=== PATIENT | male | born 1930 | race Caucasian/White ===

== ENCOUNTER 2017-11-25 18:55 | Inpatient (IN) ==
[2017-11-25] MEDS ORDERED: Vancomycin Inj 1 GM/200 ML PIGGYBACK IV.SIG ONE (20:06)
[2017-11-25] MEDS ORDERED: Sodium Chlor 0.9% Inj 500 ML IV.SIG ONE (20:06)
[2017-11-25] MEDS ORDERED: Clindamycin 600 mg/NS Premix 600 MG/50 ML PIGGYBACK IV.SIG ONE (20:06)
--- NOTE | 2017-11-25 20:11 | ED ---
HPI General Chief Complaint: Extremity Injury, Upper Stated Complaint: broken finger/right hand Time Seen by Provider: 11/25/17 19:50 Source: patient Mode of arrival: other Limitations: other (Dementia) History of Present Illness HPI narrative: The patient is a 87-year-old male who presents to the emergency department from a residential for evaluation of a swollen left index finger. According to the paperwork the patient was noted to have a swollen left index finger 12 days ago. The patient was on Augmentin 875 mill grams twice a day for 10 days and acyclovir 400 mg 3 times a day for 10 days with some improvement but the area was still red and swollen. He then had a portable x-ray performed which revealed possible osteomyelitis. Therefore, the sent the patient to the emergency department for admission for failure of outpatient treatment and possible hand surgery consultation for osteomyelitis. The patient has a history of dementia with behavioral disturbance and is a poor historian. The patient states he injured the finger yesterday while golfing. The patient denies any fever, chills, or sweats. MD complaint: injury to: finger Onset (ago): week(s) Other Extremity Injury: Left: fingers Related Data Home Medications Medication Instructions Recorded Confirmed acyclovir 400 mg PO TID 11/25/17 11/25/17 amoxicillin-pot clavulanate 1 tab PO BID 11/25/17 11/25/17 [Augmentin] aspirin 81 mg PO DAILY 11/25/17 11/25/17 bumetanide 4 mg PO DAILY 11/25/17 11/25/17 donepezil 10 mg PO DAILY 11/25/17 11/25/17 folic acid 1 mg PO DAILY 11/25/17 11/25/17 haloperidol 1 mg PO DAILY 11/25/17 11/25/17 hydrocodone-acetaminophen [[place]] 1 tab PO BID 11/25/17 11/25/17 hydrocodone-acetaminophen [[place]] 1 tab PO Q6H PRN 11/25/17 11/25/17 metoprolol tartrate 25 mg PO BID 11/25/17 11/25/17 rivaroxaban [Xarelto] 20 mg PO DAILY 11/25/17 11/25/17 Allergies Allergy/AdvReac Type Severity Reaction Status Date / Time No Known Allergies Allergy Verified 11/25/17 19:35 Review of Systems ROS Unobtainable ROS Unobtainable: unobtainable due to mental condition ROS: all other systems reviewed are negative [facility] Medical History Medical History Atrial flutter (Acute) Dementia (Acute) Pacemaker (Acute) Social History Social History Substance History: No History of Abuse Smoking Status: Former smoker How Often Do You Have a Drink Containing Alcohol: 2 to 4 times a month Recent Travel in [facility] within the Last 8 Weeks: No Recent Out of Country Travel within the Last 8 Weeks: No Immunization History Tetanus Immunization: Unsure Hx Influenza Vaccine This Season: No Exam Narrative Exam Narrative: GENERAL: Awake, alert, pleasant 87-year-old male who appears his stated age for distress. SKIN: Focused skin assessment warm/dry. HEAD: Atraumatic. Normocephalic. EYES: No injection or drainage. ENT: No nasal bleeding or discharge. Mucous membranes pink and moist. NECK: Trachea midline. No JVD. CARDIOVASCULAR: Regular rate and rhythm. No murmur appreciated. Heart rate in the 70s. RESPIRATORY: No accessory muscle use. Clear to auscultation. Breath sounds equal bilaterally. GASTROINTESTINAL: Abdomen soft, non-tender, nondistended. MUSCULOSKELETAL: Second digit left hand does reveal swelling from the middle phalanx distally with swelling and fluctuance noted over the extensor surface of the distal phalanx just proximal to the nailbed. Tenderness upon palpation, limited range of motion secondary to pain. No drainage noted. Positive left radial pulse. Mild swelling of the right lower extremity compared to left with increased hemosiderin deposition noted. NEUROLOGICAL: Awake and alert. No obvious cranial nerve deficits. Motor grossly within normal limits. Normal speech. Patient is oriented to hospital and name but not month or year. PSYCHIATRIC: Appropriate mood and affect; insight and judgment normal. Course Consultations Consultation #1: The on-call medical service was paged for admission. Time: 21:33 Initial Documented Vital Signs Temperature 97.6 F 11/25/17 19:30 Pulse Rate 70 11/25/17 19:30 Respiratory Rate 18 11/25/17 19:30 Blood Pressure 111/60 11/25/17 19:30 Pulse Oximetry 97 11/25/17 19:30 Last Documented Vital Signs Temperature 97.6 F 11/25/17 19:30 Pulse Rate 73 11/25/17 20:08 Respiratory Rate 18 11/25/17 20:08 Blood Pressure 138/63 11/25/17 20:08 Pulse Oximetry 100 11/25/17 20:08 Medical Decision Making MDM Narrative Medical decision making narrative: I reviewed the paperwork from the residential including the x-ray report, it appears the patient may osteomyelitis versus open fracture with secondary infection. The patient is failed outpatient antibiotics including Augmentin and acyclovir. Lactic acid, blood cultures were sent to lab and x-ray was obtained to the second digit of the left hand. The patient was then administered vancomycin and clindamycin. X- ray reveals changes at the distal interphalangeal joint, possibly osteomyelitis. The patient is ready failed outpatient antibiotics. Sed rate, CRP, white count were unremarkable. Blood cultures are pending. Patient will need evaluation by hand surgery for possible definitive management. Therefore, the on-call medical service was paged for admission. Medical Screen Exam Complete: Yes Emergency Medical Condition: Yes Differential Diagnosis Differential Diagnosis: Differential diagnosis includes open fracture, osteomyelitis, paronychia, felon, failed outpatient therapy, sepsis. Lab Data Lab results reviewed: Yes I reviewed the patient's lab results. Lab results narrative: Sed rate minimally elevated at 23. CRP unremarkable. Lactic acid normal. White count normal at 9.2. Result diagrams: 11/25/17 20:14 11/25/17 20:14 Lab Results 11/25/17 11/25/17 11/25/17 Range/Units 20:14 20:14 20:14 WBC 9.2 (4.0-11.0) th/mm3 RBC 4.30 L (4.50-5.90) mil/mm3 Hgb 12.8 L (13.0-17.0) gm/dL Hct 39.1 (39.0-51.0) % MCV 91.0 (80.0-100.0) fL MCH 29.8 (27.0-34.0) pg MCHC 32.7 (32.0-36.0) % RDW 15.4 (11.6-17.2) % Plt Count 265 (150-450) th/mm3 MPV 8.5 (7.0-11.0) fL Neut % (Auto) 55.4 (16.0-70.0) % Lymph % (Auto) 26.0 (9.0-44.0) % [place] % (Auto) 10.3 H (0.0-8.0) % Eos % (Auto) 6.9 H (0.0-4.0) % Baso % (Auto) 1.4 (0.0-2.0) % Neut # (Auto) 5.1 (1.8-7.7) th/mm3 Lymph # (Auto) 2.4 (1.0-4.8) th/mm3 [place] # (Auto) 0.9 (0.0-0.9) th/mm3 Eos # (Auto) 0.6 H (0.0-0.4) th/mm3 Baso # (Auto) 0.1 (0.0-0.2) th/mm3 WBC Differential . Differential Comment Auto diff final ESR (0-20) mm/hr Sodium 141 (136-145) meq/L Potassium 3.9 (3.5-5.1) meq/L Chloride 103 (98-107) meq/L Carbon Dioxide 31.8 (21.0-32.0) meq/L Anion Gap 6 (5-15) meq/L BUN 21 H (7-18) mg/dL Creatinine 1.18 (0.60-1.30) mg/dL Estimated GFR 59 L (>89) mL/min Random Glucose 92 (74-106) mg/dL Lactic Acid 1.4 (0.4-2.0) mmol/L Calcium 8.6 (8.5-10.1) mg/dL Total Bilirubin 0.3 (0.2-1.0) mg/dL AST 13 L (15-37) U/L ALT 18 (12-78) U/L Alkaline Phosphatase 69 (45-117) U/L C-Reactive Protein Less than 0.29 (0.00-0.30) mg/dL Total Protein 7.2 (6.4-8.2) g/dL Albumin 3.3 L (3.4-5.0) g/dL 11/25/17 Range/Units 20:14 WBC (4.0-11.0) th/mm3 RBC (4.50-5.90) mil/mm3 Hgb (13.0-17.0) gm/dL Hct (39.0-51.0) % MCV (80.0-100.0) fL MCH (27.0-34.0) pg MCHC (32.0-36.0) % RDW (11.6-17.2) % Plt Count (150-450) th/mm3 MPV (7.0-11.0) fL Neut % (Auto) (16.0-70.0) % Lymph % (Auto) (9.0-44.0) % [place] % (Auto) (0.0-8.0) % Eos % (Auto) (0.0-4.0) % Baso % (Auto) (0.0-2.0) % Neut # (Auto) (1.8-7.7) th/mm3 Lymph # (Auto) (1.0-4.8) th/mm3 [place] # (Auto) (0.0-0.9) th/mm3 Eos # (Auto) (0.0-0.4) th/mm3 Baso # (Auto) (0.0-0.2) th/mm3 WBC Differential Differential Comment ESR 23 H (0-20) mm/hr Sodium (136-145) meq/L Potassium (3.5-5.1) meq/L Chloride (98-107) meq/L Carbon Dioxide (21.0-32.0) meq/L Anion Gap (5-15) meq/L BUN (7-18) mg/dL Creatinine (0.60-1.30) mg/dL Estimated GFR (>89) mL/min Random Glucose (74-106) mg/dL Lactic Acid (0.4-2.0) mmol/L Calcium (8.5-10.1) mg/dL Total Bilirubin (0.2-1.0) mg/dL AST (15-37) U/L ALT (12-78) U/L Alkaline Phosphatase (45-117) U/L C-Reactive Protein (0.00-0.30) mg/dL Total Protein (6.4-8.2) g/dL Albumin (3.4-5.0) g/dL Imaging Data Attestation: I personally reviewed and interpreted this imaging study as follows : My impression: Bony changes at the distal interphalangeal joint, possible fracture versus osteomyelitis Radiologist's impression: Finger X-Ray 11/25/17 20:06 CONCLUSION: Findings consistent with osteomyelitis with bony destruction DIP joint second digit Discharge Plan Discharge Disposition Patient Disposition: 30 Still Patient Discharge Condition Condition: Stable Discharge Details Diagnosis: Osteomyelitis Physicians Team ED Provider: Terrance Salinas Primary Care Provider: UNKNOWN, Rxs /Orders / Referrals /Forms Prescriptions: No Action bumetanide 2 mg Tablet 4 mg PO DAILY RF: 0 hydrocodone-acetaminophen [Terrell] 5-325 mg Tablet 1 tab PO Q6H PRN (Reason: Pain) RF: 0 hydrocodone-acetaminophen [[place]] 5-325 mg Tablet 1 tab PO BID RF: 0 donepezil 10 mg Tablet 10 mg PO DAILY RF: 0 haloperidol 1 mg Tablet 1 mg PO DAILY RF: 0 acyclovir 400 mg Tablet 400 mg PO TID RF: 0 aspirin 81 mg Tablet,Chewable 81 mg PO DAILY RF: 0 folic acid 1 mg Tablet 1 mg PO DAILY RF: 0 amoxicillin-pot clavulanate [Augmentin] 875-125 mg Tablet 1 tab PO BID RF: 0 metoprolol tartrate 25 mg Tablet 25 mg PO BID RF: 0 rivaroxaban [Xarelto] 20 mg Tablet 20 mg PO DAILY RF: 0 Discharge Interventions Interventions: Vital Signs Last Done: 11/25/17 21:32 Status ED Status: Pending Admission
--- NOTE | 2017-11-25 20:29 | XR ---
EXAM DATE: 11/25/2017 8:24 PM EDT AGE/SEX: 87 years / Male INDICATIONS: Left hand, distal 2nd digit pain and swelling from infection. CLINICAL DATA: This is the patient's initial encounter. Patient reports that signs and symptoms have been present for 3 weeks and indicates a pain score of 10/10. MEDICAL/SURGICAL HISTORY: None. None. COMPARISON: No prior exams available for comparison. 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 Degenerative changes in the third, fourth and fifth phalanges Degenerative changes in the carpus. CONCLUSION: Findings consistent with osteomyelitis with bony destruction DIP joint second digit Electronically signed by: Kian Mcarthur MD 11/25/2017 8:28 PM EDT
[2017-11-25 20:40] LABS: Baso # (Auto) 0.1 th/mm3 (0.0-0.2); Baso % (Auto) 1.4 % (0.0-2.0); Eos # (Auto) 0.6 th/mm3 (0.0-0.4); Eos % (Auto) 6.9 % (0.0-4.0); Hematocrit 39.1 % (39.0-51.0); Hemoglobin 12.8 gm/dL (13.0-17.0); Lymph # (Auto) 2.4 th/mm3 (1.0-4.8); Mean Corpuscular HGB Conc 32.7 % (32.0-36.0); Mean Corpuscular Hemoglobin 29.8 pg (27.0-34.0); Mean Platelet Volume 8.5 fL (7.0-11.0); Mono # (Auto) 0.9 th/mm3 (0.0-0.9); Mono % (Auto) 10.3 % (0.0-8.0); Neut # (Auto) 5.1 th/mm3 (1.8-7.7); Neut % (Auto) 55.4 % (16.0-70.0); Platelet Count 265 th/mm3 (150-450); Red Cell Distribution Width 15.4 % (11.6-17.2); White Blood Count 9.2 th/mm3 (4.0-11.0)
[2017-11-25 21:10] LABS: Alanine Aminotransferase 18 U/L (12-78); Albumin 3.3 g/dL (3.4-5.0); Anion Gap 6 meq/L (5-15); Aspartate Aminotransferase 13 U/L (15-37); Blood Urea Nitrogen 21 mg/dL (7-18); Calcium 8.6 mg/dL (8.5-10.1); Carbon Dioxide 31.8 meq/L (21.0-32.0); Chloride 103 meq/L (98-107); Glomerular Filtration Rate 59 mL/min (>89); Glucose,Random 92 mg/dL (74-106); Potassium 3.9 meq/L (3.5-5.1); Sodium 141 meq/L (136-145)
[2017-11-25 21:13] LABS: Alkaline Phosphatase 69 U/L (45-117); Total Protein 7.2 g/dL (6.4-8.2)
[2017-11-25] MEDS ORDERED: Vancomycin Inj 1,000 MG in Sodium Chlor 0.9% Inj 250 ML IV.SIG ONE (22:00)
[2017-11-25] MEDS ORDERED: Acetaminophen 325 MG Tablet PO PRN (22:43)
[2017-11-25] MEDS ORDERED: Vancomycin Consult Pharmacy 1 EACH OTHER SCH (22:46)
--- NOTE | 2017-11-25 22:47 | P.HPIM ---
History of Present Illness Primary Care Physician: UNKNOWN History of Present Illness: 87-year-old male with a history of dementia and A. fib a local snf for evaluation of a swollen left index finger. According to the snf report patient has had a swollen left index finger for the last 12 days. Patient was treated outpatient with Augmentin and acyclovir for 10 days with only some improvement, but the area continued to be red and swollen. He did have an outpatient x-ray that showed possible osteomyelitis therefore they sent in for further evaluation. Due to patient's dementia he is unable to state what exactly is wrong. He does state that he has some tenderness in the left finger but that is all. Denies any fever, chills, shortness of breath, chest pain or dizziness. Inpatient Certification: I certify that the inpatient services were ordered in accordance with Medicare regulations governing the order. This includes certification that hospital inpatient services are reasonable and necessary and in the case of services not specified as inpatient-only under 42 CFR 419.22(n), that they are appropriately provided as inpatient services in accordance to with the 2-midnight benchmark under 43 CFR 412.3(e) Estimated Total Length of Stay (Days): 2 Plans for Post Hospital Care: SNF Review of Systems unobtainable due to mental condition (Patient with dementia) PMFSH - History History Provided By: Patient - Medical History Medical History: Medical History (Last Updated 11/26/17 @ 01:23 by SMITHA Mcdonald) Atrial flutter Dementia Family history unobtainable Pacemaker - Surgical History Surgical History: Surgical History (Last Updated 11/26/17 @ 01:23 by SMITHA Mcdonald) Surgical history unknown - Family History Family History: Family History (Last Updated 11/26/17 @ 01:23 by SMITHA Mcdonald) Other Family history unknown - Tobacco History Tobacco Use In Past 30 Days: No Smoking Status: Former smoker - Alcohol History How Often Do You Have a Drink Containing Alcohol: 2 to 4 times a month - Substance Use History Substance History: No History of Abuse - Travel History Recent Travel in the [place] Within the Last 8 Weeks: No Recent Travel Out of the Country Within the Last 8 Weeks: No - Immunization History Tetanus Immunization: Unsure Hx Influenza Vaccine This Season: No Medications and Allergies Active Medications: Active Medications Acetaminophen (Tylenol) 650 mg PO Q4H PRN PRN Reason: Temp > 100.4 Vancomycin HCl 1,000 mg/ (Sodium Chloride) 250 mls @ 200 mls/hr IV.SIG ONCE ONE Stop: 11/25/17 23:14 Last Admin: 11/25/17 21:31 Dose: 200 mls/hr Pharmacy Profile Note (Vancomycin Consult Pharmacy) 0 mls @ 0 mls/hr OTHER UNSCH WARD Piperacillin/Tazobactam/Dextrose (Zosyn 3.375 Gm Premix) 50 mls @ 100 mls/hr IV.SIG Q6H WARD Sodium Chloride (Ns Inj) 1,000 mls @ 100 mls/hr IV.CONT .Q10H WARD Ondansetron HCl (Zofran Inj) 4 mg IV.PUSH Q6H PRN PRN Reason: NAUSEA OR VOMITING Allergies Allergy/AdvReac Type Severity Reaction Status Date / Time No Known Allergies Allergy Verified 11/25/17 19:35 Home Medications Medication Instructions Recorded Confirmed Type acyclovir 400 mg PO TID 11/25/17 11/25/17 History amoxicillin-pot clavulanate 1 tab PO BID 11/25/17 11/25/17 History [Augmentin] aspirin 81 mg PO DAILY 11/25/17 11/25/17 History bumetanide 4 mg PO DAILY 11/25/17 11/25/17 History donepezil 10 mg PO DAILY 11/25/17 11/25/17 History folic acid 1 mg PO DAILY 11/25/17 11/25/17 History haloperidol 1 mg PO DAILY 11/25/17 11/25/17 History hydrocodone-acetaminophen [[place]] 1 tab PO BID 11/25/17 11/25/17 History hydrocodone-acetaminophen [[place]] 1 tab PO Q6H PRN 11/25/17 11/25/17 History metoprolol tartrate 25 mg PO BID 11/25/17 11/25/17 History rivaroxaban [Xarelto] 20 mg PO DAILY 11/25/17 11/25/17 History Exam Vital signs: Vital Signs 11/25/17 19:30 11/25/17 20:08 11/25/17 21:32 Temperature 97.6 F Pulse Rate 70 73 70 Respiratory Rate 18 18 16 Blood Pressure 111/60 138/63 111/53 L Pulse Oximetry 97 100 96 Intake & Output 11/25/17 11/25/17 11/26/17 06:59 18:59 06:59 Weight 90.718 kg Narrative: GENERAL: This is a well-nourished, well-developed patient, in no apparent distress. SKIN: Left index finger warm, red and swollen, with 2 areas that are necrotic EYES: Pupils equal round and reactive, no scleral edema or drainage CARDIOVASCULAR: Regular rate and rhythm without murmurs, gallops, or rubs. RESPIRATORY: Clear to auscultation. Breath sounds equal bilaterally. No wheezes , rales, or rhonchi. GASTROINTESTINAL: Abdomen soft, non-tender, nondistended. Normal active bowel sounds MUSCULOSKELETAL: Extremities without clubbing, cyanosis, or edema. NEURO: Alert & Oriented x 1 to person. Moves all ext x4 Results - Labs CBC & Chem 7: 11/25/17 20:14 11/25/17 20:14 Labs: Short CBC 11/25/17 Range/Units 20:14 WBC 9.2 (4.0-11.0) th/mm3 Hgb 12.8 L (13.0-17.0) gm/dL Hct 39.1 (39.0-51.0) % Plt Count 265 (150-450) th/mm3 BMP 11/25/17 20:14 Sodium 141 Potassium 3.9 Chloride 103 Carbon Dioxide 31.8 BUN 21 H Creatinine 1.18 Calcium 8.6 Liver Function 11/25/17 Range/Units 20:14 Total Bilirubin 0.3 (0.2-1.0) mg/dL AST 13 L (15-37) U/L ALT 18 (12-78) U/L Alkaline Phosphatase 69 (45-117) U/L Albumin 3.3 L (3.4-5.0) g/dL - Imaging Impressions Finger X-Ray 11/25/17 20:06 CONCLUSION: Findings consistent with osteomyelitis with bony destruction DIP joint second digit Caprini VTE Risk Assessment Caprini VTE Risk Assessment: Moderate/High Risk (score >= 2) Caprini Risk Assessment Model: Point Value = 1 Point Value = 2 Point Value = 3 Point Value = 5 Age 41-60 Minor surgery BMI > 25 kg/m2 Swollen legs Varicose veins or History of unexplained or recurrent spontaneous Oral contraceptives or hormone replacement Sepsis (< 1 month) Serious lung disease, including pneumonia (< 1 month) Abnormal pulmonary function Acute myocardial infarction Congestive heart failure (< 1 month) History of inflammatory bowel disease Medical patient at bed rest Age 61-74 Arthroscopic surgery Major open surgery (> 45 min) Laparoscopic surgery (> 45 min) Malignancy Confined to bed (> 72 hours) Immobilizing plaster cast Central venous access Age >= 75 History of VTE Family history of VTE Factor V Leiden Prothrombin [id number] Lupus anticoagulant Anticardiolipin antibodies Elevated serum homocysteine Heparin-induced thrombocytopenia Other congenital or acquired thrombophilia Stroke (< 1 month) Elective arthroplasty Hip, pelvis, or leg fracture Acute spinal cord injury (< 1 month) Prophylaxis Regimen: Total Risk Factor Score Risk Level Prophylaxis Regimen 0-1 Low Early ambulation 2 Moderate Order ONE of the following: *Sequential Compression Device (SCD) *Heparin 5000 units SQ BID 3-4 Higher Order ONE of the following medications: *Heparin 5000 units SQ TID *Enoxaparin/Lovenox 40 mg SQ daily (WT < 150 kg, CrCl > 30 mL/min) *Enoxaparin/Lovenox 30 mg SQ daily (WT < 150 kg, CrCl > 10-29 mL/min) *Enoxaparin/Lovenox 30 mg SQ BID (WT < 150 kg, CrCl > 30 mL/min) AND/OR *Sequential Compression Device (SCD) 5 or more Highest Order ONE of the following medications: *Heparin 5000 units SQ TID (Preferred with Epidurals) *Enoxaparin/Lovenox 40 mg SQ daily (WT < 150 kg, CrCl > 30 mL/min) *Enoxaparin/Lovenox 30 mg SQ daily (WT < 150 kg, CrCl > 10-29 mL/min) *Enoxaparin/Lovenox 30 mg SQ BID (WT < 150 kg, CrCl > 30 mL/min) AND *Sequential Compression Device (SCD) Assessment and Plan - Plan Osteomyelitis, left index finger Finger x-ray reviewed and shows osteomyelitis with bony destruction DIP joint second digit ESR 23 -Consult hand surgery for evaluation -IV antibiotics vancomycin and Zosyn -NPO -Pain management with po norco A. fib, chronic -Continue home medications Metoprolol -Hold Xarelto until after surgery -Monitor telemetry Dementia with behavioral disturbances, chronic -Resume home medications DVT prophylaxis: SCDs Discussed Condition With: Patient, ED physician and RN
[2017-11-26] MEDS: Piperacil/Tazo 3.375 GM Premix 50 ML IV.SIG SCH ×5 (00:56→23:57)
[2017-11-26] MEDS: Sod Chloride 0.9% Inj 1,000 ML IV.CONT SCH ×3 (00:59→19:53)
[2017-11-26] MEDS ORDERED: Vancomycin Inj 1,000 MG in Sodium Chlor 0.9% Inj 250 ML IV.SIG ONE (02:00)
[2017-11-26 07:31] LABS: Baso # (Auto) 0.1 th/mm3 (0.0-0.2); Baso % (Auto) 1.3 % (0.0-2.0); Eos # (Auto) 0.6 th/mm3 (0.0-0.4); Eos % (Auto) 8.7 % (0.0-4.0); Hematocrit 33.4 % (39.0-51.0); Hemoglobin 11.2 gm/dL (13.0-17.0); Lymph # (Auto) 2.1 th/mm3 (1.0-4.8); Lymph % (Auto) 30.6 % (9.0-44.0); Mean Corpuscular HGB Conc 33.5 % (32.0-36.0); Mean Corpuscular Volume 89.6 fL (80.0-100.0); Mean Platelet Volume 8.9 fL (7.0-11.0); Mono # (Auto) 0.6 th/mm3 (0.0-0.9); Mono % (Auto) 9.1 % (0.0-8.0); Neut # (Auto) 3.4 th/mm3 (1.8-7.7); Neut % (Auto) 50.3 % (16.0-70.0); Platelet Count 202 th/mm3 (150-450); Red Blood Count 3.73 mil/mm3 (4.50-5.90); Red Cell Distribution Width 15.5 % (11.6-17.2); White Blood Count 6.7 th/mm3 (4.0-11.0)
[2017-11-26 07:55] LABS: Calcium 8.1 mg/dL (8.5-10.1); Carbon Dioxide 28.8 meq/L (21.0-32.0); Potassium 3.5 meq/L (3.5-5.1)
[2017-11-26] MEDS: Folic Acid 1 MG Tablet PO SCH (10:44)
--- NOTE | 2017-11-26 12:51 | P.PNIM ---
Subjective Interval history: 87-year-old male with a history of dementia and A. fib a local residential for evaluation of a swollen left index finger. According to the residential report patient has had a swollen left index finger for the last 12 days. Patient was treated outpatient with Augmentin and acyclovir for 10 days with only some improvement, but the area continued to be red and swollen. He did have an outpatient x-ray that showed possible osteomyelitis therefore they sent in for further evaluation. Due to patient's dementia he is unable to state what exactly is wrong. He does state that he has some tenderness in the left finger but that is all. Denies any fever, chills, shortness of breath, chest pain or dizziness. 11-26 AWAIT HAND EVALUATION ON LEFT INDEX FINGER OSTEO AM LABS CONTINUE ANTIBIOTICS DW RN AND PT AND CM PATIENT IS DEMENTED BUT PLEASANT Physical Exam Vital signs: Vital Signs 11/25/17 19:30 11/25/17 20:08 11/25/17 21:32 Temperature 97.6 F Pulse Rate 70 73 70 Respiratory Rate 18 18 16 Blood Pressure 111/60 138/63 111/53 L Pulse Oximetry 97 100 96 11/26/17 00:00 11/26/17 06:28 11/26/17 08:00 Temperature 97.5 F L 98.7 F 97.6 F Pulse Rate 71 70 72 Respiratory Rate 18 18 18 Blood Pressure 120/57 L 119/54 L 136/61 Pulse Oximetry 98 97 98 11/26/17 12:00 Temperature 97.4 F L Pulse Rate 70 Respiratory Rate 18 Blood Pressure 111/56 L Pulse Oximetry 96 Intake & Output 11/25/17 11/26/17 11/26/17 18:59 06:59 18:59 Intake Total 1150 / 1150 Balance 1150 / 1150 Weight 90.718 kg Intake: IV 1150 / 1150 Cleocin 600 mg/NS Premix 600 mg 50 / 50 In 50 ml @ 100 mls/hr IV.SIG ONCE ONE Rx#:[id number] Zosyn 3.375 GM Premix 50 ML @ 100 / 100 100 mls/hr IV.SIG Q6H WARD Rx#: [id number] NS Inj 500 ML @ Wide Open IV. 500 / 500 SIG BOLUS ONE Rx#:[id number] Vancomycin Inj 1,000 MG In NS 500 / 500 Inj 250 ML @ 250 mls/hr IV.SIG ONCE ONE Rx#:[id number] Narrative: GENERAL: This is a well-nourished, well-developed patient, in no apparent distress. SKIN: Left index finger warm, red and swollen, with 2 areas that are necrotic EYES: Pupils equal round and reactive, no scleral edema or drainage CARDIOVASCULAR: Regular rate and rhythm without murmurs, gallops, or rubs. RESPIRATORY: Clear to auscultation. Breath sounds equal bilaterally. No wheezes , rales, or rhonchi. GASTROINTESTINAL: Abdomen soft, non-tender, nondistended. Normal active bowel sounds MUSCULOSKELETAL: Extremities without clubbing, cyanosis, or edema. WOUND ON LEFT INDEX FINGER NEURO: Alert & Oriented x 1 to person. Moves all ext x4 Insight and judgment is limited Mood and behavior is inappropriate Results - Labs CBC & Chem 7: 11/26/17 06:05 11/26/17 06:05 Laboratory Results - last 24 hr 11/25/17 11/25/17 11/25/17 20:14 20:14 20:14 WBC 9.2 RBC 4.30 L Hgb 12.8 L Hct 39.1 MCV 91.0 MCH 29.8 MCHC 32.7 RDW 15.4 Plt Count 265 MPV 8.5 Neut % (Auto) 55.4 Lymph % (Auto) 26.0 [place] % (Auto) 10.3 H Eos % (Auto) 6.9 H Baso % (Auto) 1.4 Neut # (Auto) 5.1 Lymph # (Auto) 2.4 [place] # (Auto) 0.9 Eos # (Auto) 0.6 H Baso # (Auto) 0.1 WBC Differential . Differential Comment Auto diff final ESR Sodium 141 Potassium 3.9 Chloride 103 Carbon Dioxide 31.8 Anion Gap 6 BUN 21 H Creatinine 1.18 Estimated GFR 59 L Random Glucose 92 Lactic Acid 1.4 Calcium 8.6 Total Bilirubin 0.3 AST 13 L ALT 18 Alkaline Phosphatase 69 C-Reactive Protein Less than 0.29 Total Protein 7.2 Albumin 3.3 L 11/25/17 11/26/17 11/26/17 20:14 06:05 06:05 WBC 6.7 RBC 3.73 L Hgb 11.2 L Hct 33.4 L MCV 89.6 MCH 30.0 MCHC 33.5 RDW 15.5 Plt Count 202 MPV 8.9 Neut % (Auto) 50.3 Lymph % (Auto) 30.6 [place] % (Auto) 9.1 H Eos % (Auto) 8.7 H Baso % (Auto) 1.3 Neut # (Auto) 3.4 Lymph # (Auto) 2.1 [place] # (Auto) 0.6 Eos # (Auto) 0.6 H Baso # (Auto) 0.1 WBC Differential . Differential Comment Auto diff final ESR 23 H Sodium 143 Potassium 3.5 Chloride 107 Carbon Dioxide 28.8 Anion Gap 7 BUN 16 Creatinine 0.88 Estimated GFR 82 L Random Glucose 80 Lactic Acid Calcium 8.1 L Total Bilirubin AST ALT Alkaline Phosphatase C-Reactive Protein Total Protein Albumin Microbiology 11/25/17 20:14 Blood - Peripheral Aerobic Blood Culture - Preliminary No growth in 1 day 11/25/17 20:14 Blood - Peripheral Anaerobic Blood Culture - Preliminary No growth in 1 day 11/25/17 20:05 Blood - Peripheral Aerobic Blood Culture - Preliminary No growth in 1 day 11/25/17 20:05 Blood - Peripheral Anaerobic Blood Culture - Preliminary No growth in 1 day - Imaging Impressions Finger X-Ray 11/25/17 20:06 CONCLUSION: Findings consistent with osteomyelitis with bony destruction DIP joint second digit Assessment and Plan - Plan Osteomyelitis, left index finger Finger x-ray reviewed and shows osteomyelitis with bony destruction DIP joint second digit ESR 23 -Consult hand surgery for evaluation -IV antibiotics vancomycin and Zosyn -WILL FEED TODAY -Pain management with po norco A. fib, chronic -Continue home medications Metoprolol -Hold Xarelto until after surgery -Monitor telemetry Dementia with behavioral disturbances, chronic -Resume home medications DVT prophylaxis: SCDs Code Status: FULL CODE Discussed Condition With: RN AND PT AND CM Discharge Planning: ONCE CLEARED BY ALL FOR DISCHARGE
[2017-11-26] MEDS: Metoprolol Tartrate 25 MG Tablet PO SCH ×2 (14:49→21:53)
[2017-11-26] MEDS: Vancomycin Inj 1,300 MG in Sodium Chlor 0.9% Inj 500 ML IV.SIG SCH (15:17)
[2017-11-26] MEDS: Haloperidol 1 MG Tablet PO SCH (17:37)
[2017-11-27] MEDS: Vancomycin Inj 1,300 MG in Sodium Chlor 0.9% Inj 500 ML IV.SIG SCH ×2 (04:49→16:13)
[2017-11-27] MEDS: Sod Chloride 0.9% Inj 1,000 ML IV.CONT SCH ×2 (04:52→16:13)
[2017-11-27] MEDS: Piperacil/Tazo 3.375 GM Premix 50 ML IV.SIG SCH ×4 (06:58→23:49)
[2017-11-27 08:54] LABS: Baso # (Auto) 0.1 th/mm3 (0.0-0.2); Baso % (Auto) 1.3 % (0.0-2.0); Eos # (Auto) 0.5 th/mm3 (0.0-0.4); Hematocrit 39.4 % (39.0-51.0); Hemoglobin 12.9 gm/dL (13.0-17.0); Lymph # (Auto) 1.8 th/mm3 (1.0-4.8); Lymph % (Auto) 17.1 % (9.0-44.0); Mean Corpuscular HGB Conc 32.7 % (32.0-36.0); Mean Corpuscular Hemoglobin 29.8 pg (27.0-34.0); Mean Corpuscular Volume 91.3 fL (80.0-100.0); Mean Platelet Volume 9.2 fL (7.0-11.0); Mono # (Auto) 0.8 th/mm3 (0.0-0.9); Mono % (Auto) 7.8 % (0.0-8.0); Neut # (Auto) 7.3 th/mm3 (1.8-7.7); Neut % (Auto) 68.8 % (16.0-70.0); Platelet Count 234 th/mm3 (150-450); Red Blood Count 4.31 mil/mm3 (4.50-5.90); Red Cell Distribution Width 15.3 % (11.6-17.2); White Blood Count 10.6 th/mm3 (4.0-11.0)
[2017-11-27 09:30] LABS: Anion Gap 11 meq/L (5-15); Aspartate Aminotransferase 16 U/L (15-37); Blood Urea Nitrogen 12 mg/dL (7-18); Calcium 8.6 mg/dL (8.5-10.1); Carbon Dioxide 26.5 meq/L (21.0-32.0); Chloride 107 meq/L (98-107); Glomerular Filtration Rate 85 mL/min (>89); Glucose,Random 81 mg/dL (74-106); Potassium 3.2 meq/L (3.5-5.1); Sodium 144 meq/L (136-145)
[2017-11-27 09:40] LABS: Alanine Aminotransferase 13 U/L (12-78); Alkaline Phosphatase 63 U/L (45-117); Free T4 (Free Thyroxine) 1.02 ng/dL (0.76-1.46); Magnesium 2.1 mg/dL (1.5-2.5); Phosphorus 2.5 mg/dL (2.5-4.9); Thyroid Stimulating Hormone 0.739 uIU/mL (0.358-3.740); Total Protein 6.4 g/dL (6.4-8.2)
[2017-11-27] MEDS: Folic Acid 1 MG Tablet PO SCH (09:50)
[2017-11-27] MEDS: Haloperidol 1 MG Tablet PO SCH (09:50)
[2017-11-27] MEDS: Metoprolol Tartrate 25 MG Tablet PO SCH ×2 (09:50→22:50)
--- NOTE | 2017-11-27 10:29 | P.PNIM ---
Subjective Interval history: No new complaints from the patient. Pain is under control. Evaluation by hand surgeon pending. Physical Exam Vital signs: Vital Signs 11/26/17 12:00 11/26/17 16:00 11/26/17 20:00 Temperature 97.4 F L 97.0 F L 97.8 F Pulse Rate 70 70 72 Respiratory Rate 18 18 22 Blood Pressure 111/56 L 124/59 L 141/61 H Pulse Oximetry 96 100 98 11/27/17 04:00 11/27/17 08:00 Temperature 97.3 F L Pulse Rate 70 72 Respiratory Rate 22 16 Blood Pressure 149/64 H 140/64 Pulse Oximetry 98 100 Intake & Output 11/26/17 11/27/17 11/27/17 18:59 06:59 18:59 Intake Total 1480 / 1480 1126 / 1126 50 / 50 Balance 1480 / 1480 1126 / 1126 50 / 50 Intake: IV 1000 / 1000 1126 / 1126 50 / 50 NS Inj 1,000 ML @ 100 mls/hr IV 1000 / 1000 .CONT .Q10H [facility] Rx#:[id number] Zosyn 3.375 GM Premix 50 ML @ 100 / 100 50 / 50 100 mls/hr IV.SIG Q6H [facility] Rx#: [id number] Vancomycin Inj 1,300 MG In NS 1026 / 1026 Inj 500 ML @ 250 mls/hr IV.SIG Q12H [facility] Rx#:[id number] Oral 480 / 480 Other: # Voids 3 # Urine Diapers 3 Narrative: GENERAL: NAD, A&Ox3 HEAD: Normocephalic. NECK: Supple, trachea midline. No lymphadenopathy. EYES: No scleral icterus. No injection or drainage. CARDIOVASCULAR: Regular rate and rhythm without murmurs, gallops, or rubs. RESPIRATORY: Breath sounds equal bilaterally. No accessory muscle use. GASTROINTESTINAL: Abdomen soft, non-tender, nondistended. MUSCULOSKELETAL: No cyanosis, or edema. Distal left index finger is erythematous, indurated and deformed. SKIN: Warm and dry. NEURO: No focal neurological deficits. Results - Labs CBC & Chem 7: 11/27/17 07:37 11/27/17 07:37 Laboratory Results - last 24 hr 11/27/17 11/27/17 07:37 07:37 WBC 10.6 RBC 4.31 L Hgb 12.9 L Hct 39.4 MCV 91.3 MCH 29.8 MCHC 32.7 RDW 15.3 Plt Count 234 MPV 9.2 Neut % (Auto) 68.8 Lymph % (Auto) 17.1 Coffey % (Auto) 7.8 Eos % (Auto) 5.0 H Baso % (Auto) 1.3 Neut # (Auto) 7.3 Lymph # (Auto) 1.8 Coffey # (Auto) 0.8 Eos # (Auto) 0.5 H Baso # (Auto) 0.1 WBC Differential . Differential Comment Auto diff final Sodium 144 Potassium 3.2 L Chloride 107 Carbon Dioxide 26.5 Anion Gap 11 BUN 12 Creatinine 0.86 Estimated GFR 85 L Random Glucose 81 Calcium 8.6 Phosphorus 2.5 Magnesium 2.1 Total Bilirubin 0.8 AST 16 ALT 13 Alkaline Phosphatase 63 Total Protein 6.4 D Albumin 3.0 L TSH 0.739 Free T4 1.02 Microbiology 11/25/17 20:14 Blood - Peripheral Aerobic Blood Culture - Preliminary No growth in 1 day 11/25/17 20:14 Blood - Peripheral Anaerobic Blood Culture - Preliminary No growth in 1 day 11/25/17 20:05 Blood - Peripheral Aerobic Blood Culture - Preliminary No growth in 1 day 11/25/17 20:05 Blood - Peripheral Anaerobic Blood Culture - Preliminary No growth in 1 day Assessment and Plan - Plan 87-year-old male admitted secondary to ostium mellitus Osteomyelitis, left index finger Hand surgeon evaluation pending Continue vancomycin and Zosyn Continue [place] for pain A. fib, chronic Continue metoprolol Xarelto on hold for potential preop situation -Monitor telemetry Dementia with behavioral disturbances, chronic Supportive care Continue baseline management DVT prophylaxis SCDs
[2017-11-27] MEDS ORDERED: Lidocaine PF 1% Inj 5 ML Syringe INFILTRATN ONE (12:00)
[2017-11-27] MEDS ORDERED: Phenylephrine/NS 1000 MCG/10ML Syringe IV.PUSH ONE (12:00)
[2017-11-27] MEDS ORDERED: Pharmacy Ordered Lab Info OTHER ONE (14:45)
[2017-11-27 16:04] LABS: Vancomycin,Trough 21.7 mcg/mL (5.0-10.0)
[2017-11-27 16:39] LABS: Uric Acid 4.8 mg/dl (2.6-7.2)
[2017-11-27] MEDS ORDERED: Lidocaine 2% Inj 50 ML Vial ONE (19:49)
[2017-11-27] MEDS ORDERED: Neomycin/Polymyxin G.U. Irrigant 1 ML Ampul ONE (19:50)
--- NOTE | 2017-11-27 21:38 | P.PNOP ---
Physical Exam Vital signs: Vital Signs 11/27/17 04:00 11/27/17 08:00 11/27/17 12:04 Temperature 97.3 F L 97.6 F Pulse Rate 70 72 69 Respiratory Rate 22 16 16 Blood Pressure 149/64 H 140/64 141/63 H Pulse Oximetry 98 100 99 11/27/17 17:25 Temperature 97.1 F L Pulse Rate 69 Respiratory Rate 16 Blood Pressure 131/54 L Pulse Oximetry 100 Intake & Output 11/27/17 11/27/17 11/28/17 06:59 18:59 06:59 Intake Total 1126 / 1126 350 / 350 1000 / 1000 Output Total Balance 1126 / 1126 350 / 350 997 / 997 Intake: IV 1126 / 1126 350 / 350 Zosyn 3.375 GM Premix 50 ML @ 100 / 100 100 / 100 100 mls/hr IV.SIG Q6H [facility] Rx#: [id number] Vancomycin Inj 1,300 MG In NS 1026 / 1026 250 / 250 Inj 500 ML @ 250 mls/hr IV.SIG Q12H [facility] Rx#:[id number] Anesthesia Amount 1000 / 1000 Output: Estimated Blood Loss Other: # Voids 3 Results - Labs CBC & Chem 7: 11/27/17 07:37 11/27/17 07:37 Laboratory Results - last 24 hr 11/27/17 11/27/17 11/27/17 07:37 07:37 15:20 WBC 10.6 RBC 4.31 L Hgb 12.9 L Hct 39.4 MCV 91.3 MCH 29.8 MCHC 32.7 RDW 15.3 Plt Count 234 MPV 9.2 Neut % (Auto) 68.8 Lymph % (Auto) 17.1 Page % (Auto) 7.8 Eos % (Auto) 5.0 H Baso % (Auto) 1.3 Neut # (Auto) 7.3 Lymph # (Auto) 1.8 Page # (Auto) 0.8 Eos # (Auto) 0.5 H Baso # (Auto) 0.1 WBC Differential . Differential Comment Auto diff final Sodium 144 Potassium 3.2 L Chloride 107 Carbon Dioxide 26.5 Anion Gap 11 BUN 12 Creatinine 0.86 Estimated GFR 85 L Random Glucose 81 Uric Acid Cancelled 4.8 Calcium 8.6 Phosphorus 2.5 Magnesium 2.1 Total Bilirubin 0.8 AST 16 ALT 13 Alkaline Phosphatase 63 Total Protein 6.4 D Albumin 3.0 L TSH 0.739 Free T4 1.02 Vancomycin Trough 21.7 H 11/27/17 15:20 WBC RBC Hgb Hct MCV MCH MCHC RDW Plt Count MPV Neut % (Auto) Lymph % (Auto) Page % (Auto) Eos % (Auto) Baso % (Auto) Neut # (Auto) Lymph # (Auto) Page # (Auto) Eos # (Auto) Baso # (Auto) WBC Differential Differential Comment Sodium Potassium Chloride Carbon Dioxide Anion Gap BUN Creatinine Estimated GFR Random Glucose Uric Acid Cancelled Calcium Phosphorus Magnesium Total Bilirubin AST ALT Alkaline Phosphatase Total Protein Albumin TSH Free T4 Vancomycin Trough Microbiology 11/25/17 20:14 Blood - Peripheral Aerobic Blood Culture - Preliminary No growth in 2 days 11/25/17 20:14 Blood - Peripheral Anaerobic Blood Culture - Preliminary No growth in 2 days 11/25/17 20:05 Blood - Peripheral Aerobic Blood Culture - Preliminary No growth in 2 days 11/25/17 20:05 Blood - Peripheral Anaerobic Blood Culture - Preliminary No growth in 2 days Assessment and Plan - Assessment and Plan 87yM POD0 s/p I&D left index finger for likely infected gout although Uric Acid wnl. complete destruction of DIP joint on xray and intraoperative. Unable to get MRI due to pacemaker. Keep dressing in place. Dr Atwood covering this weekend for possible dressing change Sun. Follow cultures and ID recs Will continue to follow
[2017-11-27] MEDS ORDERED: fentaNYL Citrate Inj 100 MCG/2 ML Ampul ONE (21:39)
[2017-11-28] MEDS: Sod Chloride 0.9% Inj 1,000 ML IV.CONT SCH ×3 (00:44→20:49)
--- NOTE | 2017-11-28 01:09 | MB ---
cc: Heather Tilley MD DATE: 11/27/2017 REASON FOR CONSULTATION: Swelling and erythema, left index finger DIP joint. HISTORY OF PRESENT ILLNESS: Zackery Garner is an 87-year-old male who presented from a local assisted with swelling and erythema over the left index finger. The patient does have a history of dementia and is a poor historian. I did speak with his ex- who is his power of document review attorney, who also is a nurse at a local [facility]. The patient's family member states that he has had several weeks of swelling over the left index finger, which was treated with oral antibiotics with minimal improvement in his symptoms. Unclear history of trauma. The patient was treated apparently with potentially Augmentin and acyclovir. The patient reports mild pain over the left index finger. Denies any paresthesias. He states he is right hand dominant. PAST MEDICAL HISTORY: 1. Significant for atrial fibrillation. 2. Atrial flutter. 3. Dementia. PAST SURGICAL HISTORY: Pacemaker. Other unknown. SOCIAL HISTORY: The patient resides in a assisted. Former smoker. PHYSICAL EXAMINATION: GENERAL: The patient is confused on exam. Majority of the history obtained from the patient's power of document review attorney. EXTREMITIES: The patient has erythema over the distal interphalangeal joint of the left index finger with some clear and white drainage. He does have an extensor lag. The patient is able to flex the left index finger at the DIP joint. Again, erythema and swelling over the DIP joint, but no erythema and swelling over the PIP or MP joints. Sensation present on the radial and ulnar side. Less than 2-second capillary refill. Nodules over bilateral elbows consistent with either gout or rheumatoid arthritis. LABORATORY DATA: Notable for white count 10.6, ESR 23, CRP less than 0.29. Uric acid 4.8. IMAGING: X-rays reviewed, which shows destruction of the left index finger distal interphalangeal joint. Also, arthritis throughout the hand and wrist. MRI unable to be completed due to the patient's pacemaker. ASSESSMENT AND PLAN: An 87-year-old male with concern for infection of the left index finger DIP joint, also concerning for gout. I discussed with the power of document review attorney treatment options. She gave verbal consent over the phone for incision and drainage. Cultures and surgery is indicated. The patient remained in the hospital for IV antibiotics and close observation. Heather Tilley MD SEJodi/araseli , 11:24 PM , 11:32 PM [facility]
--- NOTE | 2017-11-28 01:13 | MP ---
cc: Heather Tilley MD DATE OF OPERATION: 11/27/2017 PREOPERATIVE DIAGNOSIS: Osteomyelitis versus abscess versus gout, left index finger. POSTOPERATIVE DIAGNOSIS: Osteomyelitis versus abscess versus gout, left index finger. PROCEDURE PERFORMED: 1. Incision and drainage abscess, left index finger distal interphalangeal joint. 2. Debridement, distal interphalangeal joint, left index finger. 3. Interpretation of fluoroscopy by the surgeon, left index finger. SURGEON: Heather Tilley MD ANESTHESIA: General and local. TOURNIQUET TIME: 7 minutes at 200 mmHg. SPECIMEN: Culture as well as mass for pathology. INDICATIONS FOR PROCEDURE: Zackery Garner is an 87-year-old male with a past medical history for dementia, who presented with erythema and swelling of the left index finger distal interphalangeal joint. Lab work concerning for infection. The patient failed oral treatment. Physical exam also concerning for gout, although the patient's uric acid is within normal limits at this time. The patient's power of claims attorney elected to proceed with surgical intervention. Risks were explained which included, but not limited to, wound complication, infection, sepsis, need for additional surgeries, pain, extensor lag, need for amputation of the finger and she signed the verbal consent. DESCRIPTION OF PROCEDURE: The patient was identified in the preoperative holding and the correct extremity was marked. The patient was taken to the operating room where anesthesia was induced. Left upper extremity prepped and draped in normal sterile fashion. There was significant friable skin with some drainage consistent with possible gout, possible infection. A culture was sent. There was a significant amount of white, chalky tophi consistent with gout. This was sent for pathology. There was significant destruction of the distal interphalangeal joint, which was debrided. This was confirmed under fluoroscopy. This was debrided using a rongeur. Tourniquet was released. There was good capillary refill to the finger. Again, the skin was significantly friable. This was closed loosely with 4-0 and 5-0 chromic. The patient was placed into a soft dressing and awoken from anesthesia without complication. Approximately 8 mL of 2% lidocaine without epinephrine was used for local anesthesia. The patient will remain in the hospital. We will attempt to keep the dressing in place due to the significant thinness of the skin. I will consult infectious disease. The patient may also be treated aggressively for gout. MD NOEMY Guadalupe/diane , 11:27 PM , 11:33 PM [facility]
[2017-11-28] MEDS: Vancomycin Inj 1,300 MG in Sodium Chlor 0.9% Inj 500 ML IV.SIG SCH ×2 (04:46→16:42)
[2017-11-28] MEDS: Piperacil/Tazo 3.375 GM Premix 50 ML IV.SIG SCH ×4 (08:33→23:15)
[2017-11-28] MEDS: Folic Acid 1 MG Tablet PO SCH (09:46)
[2017-11-28] MEDS: Metoprolol Tartrate 25 MG Tablet PO SCH ×2 (09:46→20:50)
[2017-11-28] MEDS: Haloperidol 1 MG Tablet PO SCH (09:46)
--- NOTE | 2017-11-28 14:05 | P.PNIM ---
Subjective Interval history: Status post I&D of the left index finger. No complaints of pain from the patient. Monitoring cultures. No fevers overnight. Physical Exam Vital signs: Vital Signs 11/27/17 17:25 11/27/17 21:28 11/27/17 21:45 Temperature 97.1 F L 97.5 F L 97.5 F L Pulse Rate 69 69 69 Respiratory Rate 16 14 14 Blood Pressure 131/54 L 106/51 L 114/60 Pulse Oximetry 100 100 100 11/27/17 22:00 11/27/17 22:15 11/27/17 22:30 Temperature 97.5 F L 97.5 F L 97.5 F L Pulse Rate 69 69 69 Respiratory Rate 14 14 14 Blood Pressure 111/56 L 108/54 L 107/53 L Pulse Oximetry 96 94 L 95 11/27/17 22:45 11/27/17 23:00 11/27/17 23:48 Temperature 97.5 F L 97.5 F L 98.6 F Pulse Rate 69 69 70 Respiratory Rate 14 14 22 Blood Pressure 101/51 L 105/52 L 114/56 L Pulse Oximetry 95 95 97 11/27/17 23:54 11/28/17 04:39 11/28/17 08:00 Temperature 97.5 F L 98.0 F 97.5 F L Pulse Rate 69 70 69 Respiratory Rate 14 22 18 Blood Pressure 104/53 L 123/57 L 123/56 L Pulse Oximetry 94 L 97 97 11/28/17 12:00 Temperature 97.5 F L Pulse Rate 70 Respiratory Rate 18 Blood Pressure 109/53 L Pulse Oximetry 98 Intake & Output 11/27/17 11/28/17 11/28/17 18:59 06:59 18:59 Intake Total 350 / 350 1999 Output Total 3 / 3 Balance 350 / 350 1996 Intake: IV 350 / 350 1000 / 1000 NS Inj 1,000 ML @ 100 mls/hr IV 1000 / 1000 .CONT .Q10H [facility] Rx#:[id number] Zosyn 3.375 GM Premix 50 ML @ 100 / 100 100 mls/hr IV.SIG Q6H WARD Rx#: [id number] Vancomycin Inj 1,300 MG In NS 250 / 250 Inj 500 ML @ 250 mls/hr IV.SIG Q12H WARD Rx#:[id number] Anesthesia Amount 1000 / 1000 Output: Estimated Blood Loss 3 / 3 Other: # Urine Diapers 2 Narrative: GENERAL: NAD, A&Ox2 HEAD: Normocephalic. NECK: Supple, trachea midline. No lymphadenopathy. EYES: No scleral icterus. No injection or drainage. CARDIOVASCULAR: Regular rate and rhythm without murmurs, gallops, or rubs. RESPIRATORY: Breath sounds equal bilaterally. No accessory muscle use. GASTROINTESTINAL: Abdomen soft, non-tender, nondistended. MUSCULOSKELETAL: No cyanosis, or edema. Distal left index finger is erythematous, indurated and deformed, now with some crusted blood at the nailbed and stitches status post incision and drainage. SKIN: Warm and dry. NEURO: No focal neurological deficits. Results - Labs CBC & Chem 7: 11/27/17 07:37 11/27/17 07:37 Laboratory Results - last 24 hr 11/27/17 11/27/17 11/27/17 07:37 15:20 15:20 Sodium 144 Potassium 3.2 L Chloride 107 Carbon Dioxide 26.5 Anion Gap 11 BUN 12 Creatinine 0.86 Estimated GFR 85 L Random Glucose 81 Uric Acid Cancelled 4.8 Cancelled Calcium 8.6 Phosphorus 2.5 Magnesium 2.1 Total Bilirubin 0.8 AST 16 ALT 13 Alkaline Phosphatase 63 Total Protein 6.4 D Albumin 3.0 L TSH 0.739 Free T4 1.02 Vancomycin Trough 21.7 H Microbiology 11/25/17 20:14 Blood - Peripheral Aerobic Blood Culture - Preliminary No growth in 3 days 11/25/17 20:14 Blood - Peripheral Anaerobic Blood Culture - Preliminary No growth in 3 days 11/25/17 20:05 Blood - Peripheral Aerobic Blood Culture - Preliminary No growth in 3 days 11/25/17 20:05 Blood - Peripheral Anaerobic Blood Culture - Preliminary No growth in 3 days 11/27/17 20:59 Wound - Finger Fungal Smear - Final No fungal elements seen 11/27/17 20:59 Wound - Finger Gram Stain - Final Assessment and Plan - Plan 87-year-old male admitted secondary to ostium mellitus Monitor cultures from I&D. Continue as needed pain treatments. Osteomyelitis, left index finger Hand surgeon following Continue vancomycin and Zosyn Continue [place] for pain A. fib, chronic Continue metoprolol Xarelto on hold for potential preop situation Monitor telemetry Dementia with behavioral disturbances, chronic Supportive care Continue baseline management DVT prophylaxis SCDs
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
--- NOTE | 2017-11-28 19:43 | ECG ---
Date Performed: 11/27/2017 Time Performed: 15:05:18 PTAGE: 87 years EKG: ELECTRONIC VENTRICULAR PACEMAKER ABNORMAL RHYTHM ECG Since the PREVIOUS TRACING , no significant change noted PREVIOUS TRACING 12/13/2015 @ 19.51 DOCTOR: Demetrius Ocampo Interpretating Date/Time 11/28/2017 19:41:47
[2017-11-28] MEDS: Heparin - SQ 10,000 UNITS/ML Vial SQ SCH (20:50)
[2017-11-29] MEDS: Vancomycin Inj 1,300 MG in Sodium Chlor 0.9% Inj 500 ML IV.SIG SCH (03:20)
[2017-11-29] MEDS: Sod Chloride 0.9% Inj 1,000 ML IV.CONT SCH ×2 (03:20→06:45)
[2017-11-29 05:15] LABS: Baso # (Auto) 0.1 th/mm3 (0.0-0.2); Baso % (Auto) 1.3 % (0.0-2.0); Eos # (Auto) 0.2 th/mm3 (0.0-0.4); Eos % (Auto) 2.2 % (0.0-4.0); Hematocrit 33.2 % (39.0-51.0); Hemoglobin 10.9 gm/dL (13.0-17.0); Lymph # (Auto) 1.5 th/mm3 (1.0-4.8); Mean Corpuscular HGB Conc 32.9 % (32.0-36.0); Mean Corpuscular Hemoglobin 30.1 pg (27.0-34.0); Mean Corpuscular Volume 91.5 fL (80.0-100.0); Mean Platelet Volume 8.9 fL (7.0-11.0); Mono # (Auto) 1.3 th/mm3 (0.0-0.9); Mono % (Auto) 11.9 % (0.0-8.0); Neut # (Auto) 7.8 th/mm3 (1.8-7.7); Neut % (Auto) 70.6 % (16.0-70.0); Platelet Count 191 th/mm3 (150-450); Red Blood Count 3.62 mil/mm3 (4.50-5.90); White Blood Count 11.1 th/mm3 (4.0-11.0)
[2017-11-29 05:47] LABS: Alanine Aminotransferase 11 U/L (12-78); Albumin 2.4 g/dL (3.4-5.0); Alkaline Phosphatase 50 U/L (45-117); Anion Gap 9 meq/L (5-15); Aspartate Aminotransferase 16 U/L (15-37); Blood Urea Nitrogen 17 mg/dL (7-18); Calcium 7.8 mg/dL (8.5-10.1); Carbon Dioxide 25.9 meq/L (21.0-32.0); Chloride 112 meq/L (98-107); Glomerular Filtration Rate 28 mL/min (>89); Glucose,Random 96 mg/dL (74-106); Potassium 3.4 meq/L (3.5-5.1); Sodium 147 meq/L (136-145); Total Protein 5.4 g/dL (6.4-8.2)
[2017-11-29] MEDS: Piperacil/Tazo 3.375 GM Premix 50 ML IV.SIG SCH ×3 (05:57→17:21)
[2017-11-29] MEDS: Metoprolol Tartrate 25 MG Tablet PO SCH ×2 (08:12→20:07)
[2017-11-29] MEDS: Folic Acid 1 MG Tablet PO SCH (08:12)
[2017-11-29] MEDS: Heparin - SQ 10,000 UNITS/ML Vial SQ SCH ×2 (08:12→20:07)
[2017-11-29] MEDS: Haloperidol 1 MG Tablet PO SCH (08:12)
[2017-11-29] MEDS: Sodium Chloride 23.4% Inj 38.5 MEQ in Water for Inj, Sterile 1,000 ML IV.CONT SCH ×2 (08:35→18:18)
--- NOTE | 2017-11-29 11:15 | P.PN ---
Subjective Interval history: Follow up on patient with infected left index finger s/p I&D, dementia. Patient seen and examined. Patient denies any complaints. He reports good UOP. He denies any dysuria. He is stable. Not in any distress. Afebrile. Physical Exam Vital signs: Vital Signs 11/28/17 12:00 11/28/17 20:00 11/29/17 00:00 Temperature 97.5 F L 99.2 F 99.2 F Pulse Rate 70 69 69 Respiratory Rate 18 18 18 Blood Pressure 109/53 L 126/58 L 102/50 L Pulse Oximetry 98 96 96 11/29/17 04:00 11/29/17 04:05 11/29/17 08:00 Temperature 99.0 F 99.3 F Pulse Rate 70 71 69 Respiratory Rate 18 20 Blood Pressure 120/56 L 106/53 L Pulse Oximetry 98 94 L Intake & Output 11/28/17 11/29/17 11/29/17 18:59 06:59 18:59 Intake Total 1563 / 1563 2176 / 2176 1000 / 1000 Balance 1563 / 1563 2176 / 2176 1000 / 1000 Intake: IV 1563 / 1563 2176 / 2176 1000 / 1000 NS Inj 1,000 ML @ 100 mls/hr IV 1000 / 1000 1000 / 1000 1000 / 1000 .CONT .Q10H WARD Rx#:[id number] Zosyn 3.375 GM Premix 50 ML @ 50 / 50 150 / 150 100 mls/hr IV.SIG Q6H WARD Rx#: [id number] Vancomycin Inj 1,300 MG In NS 513 / 513 1026 / 1026 Inj 500 ML @ 250 mls/hr IV.SIG Q12H WARD Rx#:[id number] Other: # Voids 0 # Urine Diapers 1 Date of Last Bowel Movement 11/28/17 # Incontinent Bowel Movements 1 Narrative: GENERAL: WDWN elderly male patient. Awake. Not in any distress. Appears comfortable. SKIN: Warm and dry. Left index finger s/p I&D, distal aspect erythematous, edematous, indurated and deformed, sutures in place. HEAD: Atraumatic. Normocephalic. EYES: Pupils equal and round. No scleral icterus. No injection or drainage. ENT: No nasal bleeding or discharge. Mucous membranes pink and moist. NECK: Trachea midline. CARDIOVASCULAR: Regular rate and rhythm. RESPIRATORY: No accessory muscle use. Clear to auscultation. Breath sounds equal bilaterally. GASTROINTESTINAL: Abdomen soft, non-tender, nondistended. Hepatic and splenic margins not palpable. MUSCULOSKELETAL: Extremities without clubbing, cyanosis, or edema. No obvious deformities. NEUROLOGICAL: Awake and alert. No obvious cranial nerve deficits. Motor grossly within normal limits. Nonfocal. Minimal speech. PSYCHIATRIC: Flat affect. Calm. Results - Labs CBC & Chem 7: 11/29/17 04:26 11/29/17 04:26 Laboratory Results - last 24 hr 11/29/17 11/29/17 04:26 04:26 WBC 11.1 H RBC 3.62 L Hgb 10.9 L D Hct 33.2 L MCV 91.5 MCH 30.1 MCHC 32.9 RDW 16.0 Plt Count 191 MPV 8.9 Neut % (Auto) 70.6 H Lymph % (Auto) 14.0 [place] % (Auto) 11.9 H Eos % (Auto) 2.2 Baso % (Auto) 1.3 Neut # (Auto) 7.8 H Lymph # (Auto) 1.5 [place] # (Auto) 1.3 H Eos # (Auto) 0.2 Baso # (Auto) 0.1 WBC Differential . Differential Comment Auto diff final Sodium 147 H Potassium 3.4 L Chloride 112 H Carbon Dioxide 25.9 Anion Gap 9 BUN 17 Creatinine 2.25 H Estimated GFR 28 L Random Glucose 96 Calcium 7.8 L D Total Bilirubin 0.6 AST 16 ALT 11 L Alkaline Phosphatase 50 Total Protein 5.4 L D Albumin 2.4 L D Microbiology 11/27/17 20:59 Wound - Finger Gram Stain - Final 11/27/17 20:59 Wound - Finger Wound Culture - Preliminary No growth in 48 hours 11/25/17 20:14 Blood - Peripheral Aerobic Blood Culture - Preliminary No growth in 3 days 11/25/17 20:14 Blood - Peripheral Anaerobic Blood Culture - Preliminary No growth in 3 days 11/25/17 20:05 Blood - Peripheral Aerobic Blood Culture - Preliminary No growth in 3 days 11/25/17 20:05 Blood - Peripheral Anaerobic Blood Culture - Preliminary No growth in 3 days 11/27/17 20:59 Wound - Finger Fungal Smear - Final No fungal elements seen Assessment and Plan - Plan 87-year-old male admitted secondary to osteomyelitis NANCY, suspect secondary to Vancomycin ?hypoperfusion with low BP Creatinine jumped from 0.86 to Hold Vancomycin for now, will d/w ID Hold Bumex IVF hydration Renal US, UA, urine eosinophils, creatinine and sodium ordered Monitor UOP Consult nephrology, appreciate assistance avoid nephrotoxic agents Monitor kidney function Osteomyelitis, left index finger s/p I&D, wound cx with no growth thus far Hand surgeon following Continue IV Zosyn Continue [place] for pain ID following, appreciate assistance. ?amputation, patient not a good candidate for extended IV abx treatment/PICC 2/2 dementia Hypotensive, asymptomatic Continue IVF but change to 1/4NS secondary to hypernatremia decrease dose of Metoprolol to 12.5mg BID with hold parameters monitor BP A. fib, chronic Continue metoprolol but at lower dose with hold parameters Xarelto on hold for potential preop situation Monitor telemetry Hypokalemia K 3.2 po repletion ordered repeat BMP in am Dementia with behavioral disturbances, chronic Supportive care Continue baseline management DVT prophylaxis SCDs Code Status: FULL Discussed Condition With: patient, RN, Dr. Dennis Discharge Planning: Not ready for discharge
--- NOTE | 2017-11-29 13:15 | P.PN ---
Subjective Interval history: patient not complaint with dressings. no fever Physical Exam Vital signs: Vital Signs 11/28/17 20:00 11/29/17 00:00 11/29/17 04:00 Temperature 99.2 F 99.2 F 99.0 F Pulse Rate 69 69 70 Respiratory Rate 18 18 18 Blood Pressure 126/58 L 102/50 L 120/56 L Pulse Oximetry 96 96 98 11/29/17 04:05 11/29/17 08:00 11/29/17 12:00 Temperature 99.3 F 98.6 F Pulse Rate 71 69 69 Respiratory Rate 20 20 Blood Pressure 106/53 L 122/59 L Pulse Oximetry 94 L 99 Intake & Output 11/28/17 11/29/17 11/29/17 18:59 06:59 18:59 Intake Total 1563 / 1563 2176 / 2176 1050 / 1050 Balance 1563 / 1563 2176 / 2176 1050 / 1050 Intake: IV 1563 / 1563 2176 / 2176 1050 / 1050 NS Inj 1,000 ML @ 100 mls/hr IV 1000 / 1000 1000 / 1000 1000 / 1000 .CONT .Q10H WARD Rx#:[id number] Zosyn 3.375 GM Premix 50 ML @ 50 / 50 150 / 150 50 / 50 100 mls/hr IV.SIG Q6H WARD Rx#: [id number] Vancomycin Inj 1,300 MG In NS 513 / 513 1026 / 1026 Inj 500 ML @ 250 mls/hr IV.SIG Q12H WARD Rx#:[id number] Other: # Voids 0 # Urine Diapers 1 Date of Last Bowel Movement 11/28/17 # Incontinent Bowel Movements 1 Narrative: examination of the left index finger: no dressing in place surgical incision site clean and dry erythema and swelling noted. decreased compared to [place]. intact distal circulation gram stain: rare wbc's no organisms Results - Labs CBC & Chem 7: 11/29/17 04:26 11/29/17 04:26 Laboratory Results - last 24 hr 11/29/17 11/29/17 04:26 04:26 WBC 11.1 H RBC 3.62 L Hgb 10.9 L D Hct 33.2 L MCV 91.5 MCH 30.1 MCHC 32.9 RDW 16.0 Plt Count 191 MPV 8.9 Neut % (Auto) 70.6 H Lymph % (Auto) 14.0 [place] % (Auto) 11.9 H Eos % (Auto) 2.2 Baso % (Auto) 1.3 Neut # (Auto) 7.8 H Lymph # (Auto) 1.5 [place] # (Auto) 1.3 H Eos # (Auto) 0.2 Baso # (Auto) 0.1 WBC Differential . Differential Comment Auto diff final Sodium 147 H Potassium 3.4 L Chloride 112 H Carbon Dioxide 25.9 Anion Gap 9 BUN 17 Creatinine 2.25 H Estimated GFR 28 L Random Glucose 96 Calcium 7.8 L D Total Bilirubin 0.6 AST 16 ALT 11 L Alkaline Phosphatase 50 Total Protein 5.4 L D Albumin 2.4 L D Microbiology 11/25/17 20:14 Blood - Peripheral Aerobic Blood Culture - Preliminary No growth in 4 days 11/25/17 20:14 Blood - Peripheral Anaerobic Blood Culture - Preliminary No growth in 4 days 11/25/17 20:05 Blood - Peripheral Aerobic Blood Culture - Preliminary No growth in 4 days 11/25/17 20:05 Blood - Peripheral Anaerobic Blood Culture - Preliminary No growth in 4 days 11/27/17 20:59 Wound - Finger Gram Stain - Final 11/27/17 20:59 Wound - Finger Wound Culture - Preliminary No growth in 48 hours 11/27/17 20:59 Wound - Finger Fungal Smear - Final No fungal elements seen Assessment and Plan - Plan 87 year old male s/p I and D left index finger POD 2 Plan: surrounding skin is cleaned with alcohol wipes dry dressing applied continue with antibiotics based on ID recommendations Dr. Tilley will follow tomorrow.
[2017-11-29] MEDS ORDERED: Pharmacy Ordered Lab Info OTHER ONE (14:45)
--- NOTE | 2017-11-29 15:01 | MB ---
cc: Donovan Baraohna MD DATE: 11/29/2017 REASON FOR CONSULTATION: Acute renal failure management. HISTORY OF PRESENT ILLNESS: This is an 87-year-old male with a history of dementia, who lives in an assisted living facility. The patient apparently had an injury to his index finger and was being treated with Augmentin for an infection and abscess as an outpatient as well as acyclovir. He was treated for approximately 10 days; however, developed rapid swelling and erythema at the site and came here for evaluation. Apparently, there is a concern for osteomyelitis. Here, the patient was seen and admitted. He was started on treatment with vancomycin, which was started on 11/26/2017. The patient also had a further incision and drainage of the index fingertip. Postoperatively, the patient has tolerated the procedure. However, he has developed acute renal failure. His creatinine was 0.8 on 11/27/2017. Repeat labs 2 days later revealed a creatinine level of 2.25. There was a concern for possible dehydration. The patient had been receiving p.o. Bumex prior to this. However today, Bumex was stopped, and the patient was started on IV fluids at 100 mL an hour. A renal ultrasound and urine studies have been ordered. At this point, nephrology was consulted for further evaluation. There is no reported other previous history of renal issues. REVIEW OF SYSTEMS: The patient is resting in bed comfortably, has no acute distress. The patient is pleasant has dementia; however, no acute issues. He denies any chest pain, shortness of breath or nausea, vomiting, diarrhea. Otherwise, review of systems negative other than some soreness of his left index finger. PAST MEDICAL HISTORY: Atrial flutter, dementia, pacemaker insertion and reinsertion due to battery replacement. PAST SURGICAL HISTORY: Incision and drainage of left index finger abscess, 11/27/2017. SOCIAL HISTORY: The patient lives in a dementia unit. 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 No reported tobacco, alcohol, or drug use, however, was a previous smoker in the past. ALLERGIES: NO KNOWN DRUG ALLERGIES. PHYSICAL EXAMINATION: VITAL SIGNS: At time of evaluation, temperature 98.6, pulse 69, respiratory rate 20, blood pressure 122/59, pulse oximetry 94%. GENERAL: Awake, alert, some confusion with dementia. NECK: Soft, supple. CARDIAC: Regular rate and rhythm. PULMONARY: Lungs clear to auscultation. ABDOMEN: Soft, nontender, nondistended. EXTREMITIES: No edema. The patient with dressing on left index finger. LABORATORY FINDINGS: Sodium 147, potassium 3.4, chloride 112, bicarbonate 25.9, BUN 17, creatinine 2.2. Previous BUN and creatinine were 12 and 0.8 respectively on 11/27/2017. Glucose level 96, calcium is 7.8. Albumin 2.4. Vancomycin level of 21.7. White count 11.1, hemoglobin 10.9, hematocrit 33.2, with platelet count of 191. ASSESSMENT AND PLAN: 1. Acute kidney injury. The patient had a creatinine of 0.8 only 2 days ago, and this increased to a level of 2.25 today. It is possible that he may have acute kidney injury with multifactorial etiology. The patient had been on acyclovir and Augmentin for 10 days prior to this admission. He also was started on vancomycin here on 11/26/2017. While vancomycin exposure may be a potential culprit for acute kidney injury, the presentation is somewhat acute after vancomycin was initiated. His last vancomycin level was 21. He had a systolic blood pressure that was in the 100s yesterday. This relative hypotension may have also contributed to some element of the acute renal failure. At this point, agree with IV fluids. The patient had a slightly elevated sodium at 147, and he was started by the primary team on 1/4 normal saline at 100 mL per hour. Agree with this, which should address some of the elevated sodium levels as well as give some volume repletion here. Continue IV fluids for now as tolerated and continue to monitor. Renal ultrasound as well as renal electrolytes and urine eosinophils are all ordered at this point. I will continue to follow those results. The patient's home Bumex dosing was also held in light of possible volume depletion. He had been taking 4 mg p.o. daily of Bumex, and this is currently on hold. Continue to monitor at this point with IV fluids. Volume status and respiratory status otherwise stable at this point. 2. Hypokalemia. The patient with slightly low potassium at 3.2. Potassium p.o. has been ordered. Continue to monitor and adjust as needed. 3. Osteomyelitis of the finger. The patient has been started on vancomycin. Given acute renal failure, there may be consideration to change antibiotics potentially to daptomycin or deescalate antibiotics as necessary. Of note, his cultures are negative to date. Continue to follow with ID service. 4. Atrial fibrillation. The patient is stable. Continue to monitor. 5. Dementia. Continue supportive care. MD MARC Peter/fritz , 01:47 PM , 02:00 PM LISHA
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
[2017-11-30] MEDS: Piperacil/Tazo 3.375 GM Premix 50 ML IV.SIG SCH ×2 (00:11→05:00)
[2017-11-30] MEDS: Sodium Chloride 23.4% Inj 38.5 MEQ in Water for Inj, Sterile 1,000 ML IV.CONT SCH (04:58)
[2017-11-30 06:45] LABS: Baso # (Auto) 0.2 th/mm3 (0.0-0.2); Baso % (Auto) 1.2 % (0.0-2.0); Eos # (Auto) 0.2 th/mm3 (0.0-0.4); Eos % (Auto) 1.9 % (0.0-4.0); Hematocrit 34.9 % (39.0-51.0); Hemoglobin 11.3 gm/dL (13.0-17.0); Lymph # (Auto) 2.2 th/mm3 (1.0-4.8); Lymph % (Auto) 16.3 % (9.0-44.0); Mean Corpuscular HGB Conc 32.4 % (32.0-36.0); Mean Corpuscular Hemoglobin 29.8 pg (27.0-34.0); Mean Corpuscular Volume 91.9 fL (80.0-100.0); Mean Platelet Volume 9.8 fL (7.0-11.0); Mono # (Auto) 1.5 th/mm3 (0.0-0.9); Mono % (Auto) 11.6 % (0.0-8.0); Neut # (Auto) 9.1 th/mm3 (1.8-7.7); Platelet Count 165 th/mm3 (150-450); Red Cell Distribution Width 16.2 % (11.6-17.2); White Blood Count 13.2 th/mm3 (4.0-11.0)
--- NOTE | 2017-11-30 07:14 | P.PN ---
Subjective Interval history: Follow up on patient with acute renal failure, s/p I&D left index finger. Patient seen and examined. Patient remains confused. He denies any medical complaints. When asked about his left index finger, he says "it feels like a finger". Physical Exam Vital signs: Vital Signs 11/29/17 08:00 11/29/17 12:00 11/29/17 14:20 Temperature 99.3 F 98.6 F Pulse Rate 69 69 69 Respiratory Rate 20 20 Blood Pressure 106/53 L 122/59 L Pulse Oximetry 94 L 99 11/29/17 16:00 11/29/17 18:00 11/29/17 20:00 Temperature 98.4 F 99.7 F H Pulse Rate 69 69 69 Respiratory Rate 20 18 Blood Pressure 142/70 H 140/64 Pulse Oximetry 97 95 11/30/17 00:00 11/30/17 04:00 Temperature 97.9 F 98.5 F Pulse Rate 70 69 Respiratory Rate 18 18 Blood Pressure 142/63 H 147/67 H Pulse Oximetry 96 97 Intake & Output 11/29/17 11/30/17 11/30/17 18:59 06:59 18:59 Intake Total 2109.625 / 2109.625 1109.625 / 1109.625 Output Total 3 / 3 Balance 2106.625 / 2106.625 1109.625 / 1109.625 Intake: IV 2109.625 / 2109.625 1109.625 / 1109.625 NS Inj 1,000 ML @ 100 mls/hr IV 1000 / 1000 .CONT .Q10H W[facility] Rx#:[id number] Sodium Chloride 23.4% Inj 38.5 1009.625 / 2747.394 4862.625 / 1009.625 MEQ In Sterile Water for Inj 1, 000 ML @ 100 mls/hr IV.CONT . Q10H6M [facility] Rx#:[id number] Zosyn 3.375 GM Premix 50 ML @ 100 / 100 100 / 100 100 mls/hr IV.SIG Q6H W[facility] Rx#: [id number] Output: Urine 2 / 2 Stool 1 / Other: # Incontinent Voids 1 Date of Last Bowel Movement 11/29/17 11/29/17 # Incontinent Bowel Movements 1 Narrative: GENERAL: WDWN elderly male patient. Awake. Not in any distress. Appears comfortable. SKIN: Warm and dry. No generalized rash. HEAD: Atraumatic. Normocephalic. EYES: Pupils equal and round. No scleral icterus. No injection or drainage. ENT: No nasal bleeding or discharge. Mucous membranes pink and moist. NECK: Trachea midline. CARDIOVASCULAR: Regular rate and rhythm. RESPIRATORY: No accessory muscle use. Clear to auscultation. Breath sounds equal bilaterally. GASTROINTESTINAL: Abdomen soft, non-tender, nondistended. +BS. MUSCULOSKELETAL: Left index finger s/p I&D, distal aspect with less erythema and edema, sutures in place. Open area over distal aspect of incision below nail bed. NEUROLOGICAL: Awake and alert. No obvious cranial nerve deficits. Motor grossly within normal limits. Nonfocal. Minimal speech. PSYCHIATRIC: Flat affect. Calm. - Urinary Catheter Management Indwelling Urethral Catheter Cath placed during this visit: yes Reason for continuing: Hourly intake/output Insertion date: 11/29/17 Results - Labs CBC & Chem 7: 11/30/17 04:45 11/30/17 04:45 Laboratory Results - last 24 hr 11/29/17 11/30/17 15:10 04:45 WBC 13.2 H RBC 3.80 L Hgb 11.3 L Hct 34.9 L MCV 91.9 MCH 29.8 MCHC 32.4 RDW 16.2 Plt Count 165 MPV 9.8 Neut % (Auto) 69.0 Lymph % (Auto) 16.3 [place] % (Auto) 11.6 H Eos % (Auto) 1.9 Baso % (Auto) 1.2 Neut # (Auto) 9.1 H Lymph # (Auto) 2.2 [place] # (Auto) 1.5 H Eos # (Auto) 0.2 Baso # (Auto) 0.2 WBC Differential . Differential Comment Auto diff final Uric Acid 5.5 Microbiology 11/27/17 20:59 Wound - Finger Acid Fast Bacilli Smear - Final No acid fast bacilli seen 11/25/17 20:14 Blood - Peripheral Aerobic Blood Culture - Preliminary No growth in 4 days 11/25/17 20:14 Blood - Peripheral Anaerobic Blood Culture - Preliminary No growth in 4 days 11/25/17 20:05 Blood - Peripheral Aerobic Blood Culture - Preliminary No growth in 4 days 11/25/17 20:05 Blood - Peripheral Anaerobic Blood Culture - Preliminary No growth in 4 days 11/27/17 20:59 Wound - Finger Gram Stain - Final 11/27/17 20:59 Wound - Finger Wound Culture - Preliminary No growth in 48 hours - Imaging ITS Impressions Finger X-Ray 11/25/17 20:06 CONCLUSION: Findings consistent with osteomyelitis with bony destruction DIP joint second digit Abdomen/Bladder Ultrasound 11/30/17 00:00 CONCLUSION: 1. Abnormal bladder appearance. 2. Small pleural effusions Assessment and Plan - Assessment (1) Osteomyelitis Code(s): M86.9 - Osteomyelitis, unspecified Status: Acute (2) NANCY (acute kidney injury) Code(s): N17.9 - Acute kidney failure, unspecified Status: Acute (3) Hypokalemia Code(s): E87.6 - Hypokalemia Status: Acute - Plan 87-year-old male admitted secondary to osteomyelitis Acute renal failure, likely multifactorial on Vancomycin and Zosyn ? hypoperfusion with low BP Creatinine jumped from 0.86 to 2.25 Vancomycin stopped. Bumex held. IVF hydration. Worsening repeat Cr 3.25 today. Zosyn d/c'd by ID. Nephrology following Continue on IVF hydration Renal US shows abnormal bladder appearance but no obstruction Monitor UOP, strict, no output recorded avoid nephrotoxic agents Monitor kidney function - daily labs Osteomyelitis, left index finger ?Gout Uric acid WNL. Urine uric acid ordered but not drawn as of yet XR with findings c/w osteomyelitis with bony destruction DIP joint second digit s/p I&D , wound cx with no growth Hand surgeon following. Op note reviewed, significant amount of white, chalky tophi c/w gout Continue [place] for pain ID following, appreciate assistance. IV Zosyn and Vancomycin d/c'd. On po Flagyl and Ceftriaxone. DW Dr. Thomas, unable to treat with antigout agent 2/2 elevated Cr. Will try low dose steroid for gout tx and monitor wound closely for any worsening. Leukocytosis white count trending up afebrile ?worsening infection will be difficult to trend as patient will be started on po steroids Hypotensive, asymptomatic Improved on IVF continue on Metoprolol to 12.5mg BID with hold parameters monitor BP A. fib, chronic Continue metoprolol at lower dose with hold parameters Xarelto on hold for potential preop situation Monitor telemetry Hypokalemia K 3.3 po repletion ordered repeat BMP in am Dementia with behavioral disturbances, chronic Supportive care Continue baseline management DVT prophylaxis SCDs Code Status: FULL Discussed Condition With: patient, nursing staff, Dr. Thomas, Dr. Foreman Discharge Planning: Not ready for discharge. Discharge pending clinical improvement and ID and Hand sx clearance. (1) Osteomyelitis Qualifiers: Osteomyelitis type: unspecified type Osteomyelitis location: other site Qualified Code(s): M86.9 - Osteomyelitis, unspecified
[2017-11-30 07:15] LABS: Alanine Aminotransferase 15 U/L (12-78); Albumin 2.4 g/dL (3.4-5.0); Alkaline Phosphatase 56 U/L (45-117); Anion Gap 8 meq/L (5-15); Aspartate Aminotransferase 34 U/L (15-37); Blood Urea Nitrogen 24 mg/dL (7-18); Carbon Dioxide 24.7 meq/L (21.0-32.0); Chloride 111 meq/L (98-107); Glomerular Filtration Rate 18 mL/min (>89); Glucose,Random 83 mg/dL (74-106); Potassium 3.3 meq/L (3.5-5.1); Sodium 144 meq/L (136-145); Total Protein 5.5 g/dL (6.4-8.2)
[2017-11-30] MEDS: Metoprolol Tartrate 25 MG Tablet PO SCH ×2 (09:04→22:20)
[2017-11-30] MEDS: Haloperidol 1 MG Tablet PO SCH (09:05)
[2017-11-30] MEDS: Folic Acid 1 MG Tablet PO SCH (09:05)
[2017-11-30] MEDS: Heparin - SQ 10,000 UNITS/ML Vial SQ SCH ×2 (09:06→22:20)
[2017-11-30 10:07] LABS: C-Reactive Protein 5.71 mg/dL (0.00-0.30); Uric Acid 5.7 mg/dl (2.6-7.2)
[2017-11-30] MEDS: metroNIDAZOLE 500 MG Tablet PO SCH ×3 (10:20→22:20)
[2017-11-30] MEDS: Sodium Chloride 0.45 % Inj 1,000 ML IV.CONT SCH (10:30)
--- NOTE | 2017-11-30 10:39 | US ---
EXAM DATE: 11/30/2017 10:31 AM EDT AGE/SEX: 87 years / Male INDICATIONS: Elevated labs. CLINICAL DATA: This is the patient's initial encounter. Patient reports that signs and symptoms have been present for 1 day and indicates a pain score of 0/10. MEDICAL/SURGICAL HISTORY: . Atrial flutter. Dementia. . Pacemaker. [place] [facility] [place] 12/14/2015. . MEASUREMENTS: Right Kidney:__11.1 x 5.6 x 6.4 cm Left Kidney:__12.1 x 5.2 x 5.8 cm FINDINGS: Right Kidney: Tiny cyst in the lower pole cortex of the right kidney. No stone mass or hydronephrosis . Left Kidney: Small exophytic cyst arising from the upper pole cortex. No evidence of stone mass or hy dronephrosis. Bladder: Decompressed with moderate diffuse bladder wall thickening Other: Small pleural effusions CONCLUSION: 1. Abnormal bladder appearance. 2. Small pleural effusions Electronically signed by: Wali Shukla MD 11/30/2017 10:38 AM EDT
--- NOTE | 2017-11-30 12:36 | P.PNNP ---
Subjective Interval history: Renal function is worse. His urine output is not recorded. He is covered in stool. Wound left index finger. On IVF. <Arlene Harding - Last Filed: 11/30/17 12:31> Physical Exam Vital signs: Vital Signs 11/29/17 14:20 11/29/17 16:00 11/29/17 18:00 Temperature 98.4 F Pulse Rate 69 69 69 Respiratory Rate 20 Blood Pressure 142/70 H Pulse Oximetry 97 11/29/17 20:00 11/30/17 00:00 11/30/17 04:00 Temperature 99.7 F H 97.9 F 98.5 F Pulse Rate 69 70 69 Respiratory Rate 18 18 18 Blood Pressure 140/64 142/63 H 147/67 H Pulse Oximetry 95 96 97 11/30/17 08:00 Temperature 98.4 F Pulse Rate 69 Respiratory Rate 17 Blood Pressure 108/54 L Pulse Oximetry 96 Intake & Output 11/29/17 11/30/17 11/30/17 18:59 06:59 18:59 Intake Total 2109.625 / 2109.625 1109.625 / 1109.625 Output Total 3 / 3 Balance 2106.625 / 2106.625 1109.625 / 1109.625 Intake: IV 2109.625 / 2109.625 1109.625 / 1109.625 NS Inj 1,000 ML @ 100 mls/hr IV 1000 / 1000 .CONT .Q10H [facility] Rx#:[id number] Sodium Chloride 23.4% Inj 38.5 1009.625 / 8963.774 1049.625 / 1009.625 MEQ In Sterile Water for Inj 1, 000 ML @ 100 mls/hr IV.CONT . Q10H6M [facility]ARD Rx#:[id number] Zosyn 3.375 GM Premix 50 ML @ 100 / 100 100 / 100 100 mls/hr IV.SIG Q6H WARD Rx#: [id number] Output: Urine 2 / 2 Stool 1 / 1 Other: # Incontinent Voids 1 Date of Last Bowel Movement 11/29/17 11/29/17 # Incontinent Bowel Movements 1 - Constitutional no acute distress, chronically ill appearing, disheveled - Routine HEENT Exam Head: Present: normocephalic - Routine Neck Exam Present: supple, full ROM - Routine Respiratory Exam Present: CTA bilaterally. Absent: accessory muscle use - Routine Cardiovascular Exam Present: RRR, S1, S2 - Routine Abdominal Exam Present: soft, normoactive bowel sounds - Routine Extremities Exam Present: full ROM, pulses intact. Absent: edema - Routine Skin Exam Present: intact, warm - Routine Neurological Exam Present: alert, altered mental status, moving all extremities - Detailed Neurological Exam: Coma Scale Eye Opening: Spontaneous Verbal Response: Confused Motor Response: Obey commands Jon Coma Scale Total: 14 - Urinary Catheter Management Indwelling Urethral Catheter Cath placed during this visit: yes Reason for continuing: Hourly intake/output Insertion date: 11/29/17 <Arlene Harding - Last Filed: 11/30/17 12:31> Vital signs: Vital Signs 11/30/17 12:00 11/30/17 16:00 11/30/17 20:00 Temperature 97.5 F L 97.3 F L 98 F Pulse Rate 70 70 70 Respiratory Rate 17 17 18 Blood Pressure 117/57 L 111/53 L 125/60 Pulse Oximetry 99 98 98 12/01/17 08:00 Temperature 97.7 F Pulse Rate 71 Respiratory Rate 16 Blood Pressure 142/63 H Pulse Oximetry 100 Intake & Output 11/30/17 12/01/17 12/01/17 18:59 06:59 18:59 Intake Total 1220 / 1220 1000 / 1000 200 / 200 Output Total 751 / 751 Balance 469 / 469 1000 / 1000 200 / 200 Intake: IV 1000 / 1000 200 / 200 1/2 Normal Saline Inj 1,000 ML 1000 / 1000 @ 75 mls/hr IV.CONT .[id number] WARD Rx#:[id number] Rocephin Inj 2,000 MG In NS Inj 200 / 200 100 ML @ 200 mls/hr IV.SIG Q24H WARD Rx#:[id number] Oral 1220 / 1220 Output: Urine 750 / 750 Stool 1 / Other: Date of Last Bowel Movement 11/30/17 11/29/17 12/01/17 # Incontinent Bowel Movements 2 - Urinary Catheter Management Indwelling Urethral Catheter Cath placed during this visit: no <Isaias Cruz - Last Filed: 12/01/17 11:15> Assessment and Plan - Assessment (1) NANCY (acute kidney injury) Code(s): N17.9 - Acute kidney failure, unspecified Status: Acute Plan: Baseline creatinine 0.8. NANCY due to vancomycin induced rneal injury vs. prerenal azotemia. May have progressed to ATN. On IVF, reduce top 75 cc/hr US not showing obstructive etiology. Have asked the RN for a bladder scan, place a condom catheter due to mental status Avoid nephrotoxic agents UA ordered. PO fluids encouraged. Bumex is held. Obtain daily labs. (2) Hypokalemia Code(s): E87.6 - Hypokalemia Status: Acute Plan: Replacement ordered. (3) Osteomyelitis Code(s): M86.9 - Osteomyelitis, unspecified Status: Acute Qualifiers: Osteomyelitis type: unspecified type Osteomyelitis location: other site Qualified Code(s): M86.9 - Osteomyelitis, unspecified Plan: ID and ortho following s/P I&D On Rocephin. <Arlene Harding - Last Filed: 11/30/17 12:31> - Assessment (1) NANCY (acute kidney injury) Code(s): N17.9 - Acute kidney failure, unspecified Status: Acute (2) Hypokalemia Code(s): E87.6 - Hypokalemia Status: Acute (3) Osteomyelitis Code(s): M86.9 - Osteomyelitis, unspecified Status: Acute Qualifiers: Osteomyelitis type: unspecified type Osteomyelitis location: other site Qualified Code(s): M86.9 - Osteomyelitis, unspecified - Attending Attestation patient was seen and examined. Agree with above assessment and plan. Continue IVF, supportive care. Rule out urinary retention. <Isaias Cruz - Last Filed: 12/01/17 11:15>
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
--- NOTE | 2017-12-01 06:58 | P.PN ---
Subjective Interval history: Follow-up on patient with acute renal failure, status post I&D left index finger. Patient seen and examined. Patient is calm and does not appear to be any distress. He is not to point soft restraints. Patient denies any medical complaints. States his finger feels good. DW nursing staff, patient agitated and combative overnight. Physical Exam Vital signs: Vital Signs 11/30/17 08:00 11/30/17 12:00 11/30/17 16:00 Temperature 98.4 F 97.5 F L 97.3 F L Pulse Rate 69 70 70 Respiratory Rate 17 17 17 Blood Pressure 108/54 L 117/57 L 111/53 L Pulse Oximetry 96 99 98 11/30/17 20:00 Temperature 98 F Pulse Rate 70 Respiratory Rate 18 Blood Pressure 125/60 Pulse Oximetry 98 Intake & Output 11/30/17 11/30/17 12/01/17 06:59 18:59 06:59 Intake Total 1109.625 / 1993.722 0501 / 1220 Output Total 751 / 751 Balance 1109.625 / 1109.625 469 / 469 Intake: IV 1109.625 / 1109.625 Sodium Chloride 23.4% Inj 38.5 1009.625 / 1009.625 MEQ In Sterile Water for Inj 1, 000 ML @ 100 mls/hr IV.CONT . Q10H6M [facility] Rx#:[id number] Zosyn 3.375 GM Premix 50 ML @ 100 / 100 100 mls/hr IV.SIG Q6H [facility] Rx#: [id number] Oral 1220 / 1220 Output: Urine 750 / 750 Stool Other: # Incontinent Voids 1 Date of Last Bowel Movement 11/29/17 11/30/17 11/29/17 # Incontinent Bowel Movements 1 2 Narrative: GENERAL: WDWN elderly male patient. Awake. Calm. Not in any distress. In 2 point soft restraints. SKIN: Warm and dry. No generalized rash. HEAD: Atraumatic. Normocephalic. EYES: Pupils equal and round. No scleral icterus. No injection or drainage. ENT: No nasal bleeding or discharge. Mucous membranes pink and moist. NECK: Trachea midline. CARDIOVASCULAR: Regular rate and rhythm. RESPIRATORY: No accessory muscle use. Clear to auscultation. Breath sounds equal bilaterally. GASTROINTESTINAL: Abdomen soft, non-tender, nondistended. +BS. MUSCULOSKELETAL: Left index finger s/p I&D, distal aspect with less erythema and edema, sutures in place, continues to show improvement. Open area over distal aspect of incision below nail bed. NEUROLOGICAL: Awake and alert. No obvious cranial nerve deficits. Motor grossly within normal limits. Nonfocal. Minimal speech. PSYCHIATRIC: Flat affect. Calm. - Urinary Catheter Management Indwelling Urethral Catheter Cath placed during this visit: yes Reason for continuing: Hourly intake/output Insertion date: 11/29/17 Results - Labs CBC & Chem 7: 11/30/17 04:45 12/01/17 09:23 Laboratory Results - last 24 hr 11/30/17 11/30/17 04:45 04:45 Sodium 144 Potassium 3.3 L Chloride 111 H Carbon Dioxide 24.7 Anion Gap 8 BUN 24 H Creatinine 3.25 H Estimated GFR 18 L Random Glucose 83 Uric Acid 5.7 Calcium 8.0 L Total Bilirubin 1.5 H AST 34 ALT 15 Alkaline Phosphatase 56 C-Reactive Protein 5.71 H Total Protein 5.5 L Albumin 2.4 L Rheumatoid Factor Scrn Negative Rheumatoid Factor Titer Not Reportable Microbiology 11/25/17 20:14 Blood - Peripheral Aerobic Blood Culture - Final No growth in 5 days 11/25/17 20:14 Blood - Peripheral Anaerobic Blood Culture - Final No growth in 5 days 11/25/17 20:05 Blood - Peripheral Aerobic Blood Culture - Final No growth in 5 days 11/25/17 20:05 Blood - Peripheral Anaerobic Blood Culture - Final No growth in 5 days 11/27/17 20:59 Wound - Finger Gram Stain - Final 11/27/17 20:59 Wound - Finger Wound Culture - Final No growth in 72 hours (aerobically and anaerobically ) - Imaging Impressions Abdomen/Bladder Ultrasound 11/30/17 00:00 CONCLUSION: 1. Abnormal bladder appearance. 2. Small pleural effusions Assessment and Plan - Assessment (1) Osteomyelitis Code(s): M86.9 - Osteomyelitis, unspecified Status: Acute (2) NANCY (acute kidney injury) Code(s): N17.9 - Acute kidney failure, unspecified Status: Acute (3) Hypokalemia Code(s): E87.6 - Hypokalemia Status: Acute - Plan 87-year-old male admitted secondary to osteomyelitis Acute renal failure, likely multifactorial on Vancomycin and Zosyn ? hypoperfusion with low BP Creatinine jumped from 0.86 to 2.25 Vancomycin stopped. Bumex held. IVF hydration. Zosyn d/c'd by ID 11/30. Worsening, repeat Cr 3.29 today. Nephrology following, appreciate assistance Continue on IVF hydration per Nephrology Renal US shows abnormal bladder appearance but no obstruction Monitor UOP, inaccurate as patient pulled off condom cath. avoid nephrotoxic agents Monitor kidney function - daily labs Osteomyelitis, left index finger ?Gout Uric acid WNL. Urine uric acid ordered but not drawn as of yet XR with findings c/w osteomyelitis with bony destruction DIP joint second digit s/p I&D, wound cx with no growth Hand surgeon following. Op note reviewed, significant amount of white, chalky tophi c/w gout. Dr. Tilley to see patient today and give wound care instructions. Awaiting Intra-Op path results. Continue Beatty for pain ID following, appreciate assistance. IV Zosyn and Vancomycin d/c'd. On po Flagyl and IV Ceftriaxone. DW Dr. Thomas, unable to treat with antigout agent 2 /2 elevated Cr. 11/30 started on low dose steroid for gout tx, continue. Leukocytosis white count trending up afebrile ?worsening infection will be difficult to trend as patient will be started on po steroids Hypotensive, asymptomatic Improved on IVF continue on Metoprolol 12.5mg BID with hold parameters monitor BP A. fib, chronic Continue metoprolol at lower dose with hold parameters Xarelto on hold for potential preop situation Monitor telemetry Hypokalemia K 3.3 resolved s/p repletion monitor K as indicated Dementia with behavioral disturbances, chronic Supportive care Continue baseline management DVT prophylaxis SCDs Code Status: FULL Discussed Condition With: patient, nursing staff, Dr. Foreman, Dr. Thomas Discharge Planning: Not ready for discharge. Discharge pending clinical improvement and ID and Hand sx clearance. (1) Osteomyelitis Qualifiers: Osteomyelitis type: unspecified type Osteomyelitis location: other site Qualified Code(s): M86.9 - Osteomyelitis, unspecified
[2017-12-01] MEDS: metroNIDAZOLE 500 MG Tablet PO SCH ×3 (07:33→23:11)
[2017-12-01] MEDS: Sodium Chloride 0.45 % Inj 1,000 ML IV.CONT SCH ×3 (07:42→23:12)
[2017-12-01] MEDS: Haloperidol 1 MG Tablet PO SCH (08:46)
[2017-12-01] MEDS: Folic Acid 1 MG Tablet PO SCH (08:48)
[2017-12-01] MEDS: Heparin - SQ 10,000 UNITS/ML Vial SQ SCH ×2 (08:48→23:11)
[2017-12-01] MEDS: Metoprolol Tartrate 25 MG Tablet PO SCH ×2 (08:48→23:11)
[2017-12-01 10:46] LABS: Albumin 2.4 g/dL (3.4-5.0); Calcium 7.9 mg/dL (8.5-10.1); Carbon Dioxide 21.2 meq/L (21.0-32.0); Phosphorus 2.3 mg/dL (2.5-4.9); Potassium 3.6 meq/L (3.5-5.1)
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
--- NOTE | 2017-12-01 15:39 | P.PNOP ---
Subjective Interval history: Pt continues to be confused. Reports mild pain over finger. Dressing in place and restraints Physical Exam Vital signs: Vital Signs 11/30/17 16:00 11/30/17 20:00 12/01/17 08:00 Temperature 97.3 F L 98 F 97.7 F Pulse Rate 70 70 69 Respiratory Rate 17 18 16 Blood Pressure 111/53 L 125/60 142/63 H Pulse Oximetry 98 98 100 12/01/17 12:00 12/01/17 12:53 Temperature 98 F Pulse Rate 69 69 Respiratory Rate 16 Blood Pressure 132/60 Pulse Oximetry 97 Intake & Output 11/30/17 12/01/17 12/01/17 18:59 06:59 18:59 Intake Total 1220 / 1220 1000 / 1000 1200 / 1200 Output Total 751 / 751 Balance 469 / 469 1000 / 1000 1200 / 1200 Intake: IV 1000 / 1000 1200 / 1200 1/2 Normal Saline Inj 1,000 ML 1000 / 1000 1000 / 1000 @ 50 mls/hr IV.CONT .Q20H [facility] Rx#:[id number] Rocephin Inj 2,000 MG In NS Inj 200 / 200 100 ML @ 200 mls/hr IV.SIG Q24H [facility] Rx#:[id number] Oral 1220 / 1220 Output: Urine 750 / 750 Stool Other: Date of Last Bowel Movement 11/30/17 11/29/17 12/01/17 # Incontinent Bowel Movements 2 - Detailed Upper Extremity Exam Comments: Dressing removed. Improving erythema over finger DIP joint without drainage. There is some opening of the wound on the radial side with tophi present. <2 sec capillary refill - Urinary Catheter Management Indwelling Urethral Catheter Cath placed during this visit: yes Reason for continuing: Hourly intake/output Insertion date: 11/29/17 Results - Labs CBC & Chem 7: 11/30/17 04:45 12/01/17 09:23 Laboratory Results - last 24 hr 12/01/17 09:23 Sodium 144 Potassium 3.6 Chloride 111 H Carbon Dioxide 21.2 Anion Gap 12 BUN 27 H Creatinine 3.29 H Estimated GFR 18 L Random Glucose 98 Calcium 7.9 L Phosphorus 2.3 L Albumin 2.4 L Assessment and Plan - Assessment and Plan 87yM POD4 s/p I&D left index finger for likely infected gout although Uric Acid wnl. complete destruction of DIP joint on xray and intraoperative. Unable to get MRI due to pacemaker. Cultures negative. Appreciate ID recs. Recommend continued antibiotics. Also recommend treatment for gout if possible as patient had significant tophi intraop and multiple other locations of gouty tophi including elbows. Still awaiting intraop path. Daily dressing changes including xeroform, 4x4s, cling Will continue to follow. NOT cleared for discharge at this time. May need repeat I&D monday 12/04. NPO at midnight 12/03 for repeat eval thu. No plan for amputation at this time as joint destruction likely related to gout.
--- NOTE | 2017-12-01 15:45 | P.PNNP ---
Subjective Interval history: Renal function is about the same. His upper extremities are restrained. He still managed to pull off his diaper, soiled himself. Confused but able to converse. Not oriented. <Arlene Harding - Last Filed: 12/01/17 15:41> Physical Exam Vital signs: Vital Signs 11/30/17 16:00 11/30/17 20:00 12/01/17 08:00 Temperature 97.3 F L 98 F 97.7 F Pulse Rate 70 70 69 Respiratory Rate 17 18 16 Blood Pressure 111/53 L 125/60 142/63 H Pulse Oximetry 98 98 100 12/01/17 12:00 12/01/17 12:53 Temperature 98 F Pulse Rate 69 69 Respiratory Rate 16 Blood Pressure 132/60 Pulse Oximetry 97 Intake & Output 11/30/17 12/01/17 12/01/17 18:59 06:59 18:59 Intake Total 1220 / 1220 1000 / 1000 1200 / 1200 Output Total 751 / 751 Balance 469 / 469 1000 / 1000 1200 / 1200 Intake: IV 1000 / 1000 1200 / 1200 1/2 Normal Saline Inj 1,000 ML 1000 / 1000 1000 / 1000 @ 50 mls/hr IV.CONT .Q20H [facility] Rx#:[id number] Rocephin Inj 2,000 MG In NS Inj 200 / 200 100 ML @ 200 mls/hr IV.SIG Q24H [facility] Rx#:[id number] Oral 1220 / 1220 Output: Urine 750 / 750 Stool 1 / Other: Date of Last Bowel Movement 11/30/17 11/29/17 12/01/17 # Incontinent Bowel Movements 2 - Constitutional no acute distress, chronically ill appearing, disheveled, agitated - Routine HEENT Exam Head: Present: normocephalic - Routine Neck Exam Present: supple, full ROM - Routine Respiratory Exam Present: accessory muscle use, CTA bilaterally - Routine Cardiovascular Exam Present: RRR, S1, S2 - Routine Abdominal Exam Present: soft, normoactive bowel sounds - Routine Extremities Exam Present: full ROM. Absent: edema - Routine Skin Exam Present: intact, warm - Routine Neurological Exam Present: alert, oriented X3, CN II-XII intact - Detailed Neurological Exam: Coma Scale Eye Opening: Spontaneous Verbal Response: Oriented Motor Response: Obey commands Jon Coma Scale Total: 15 - Routine Psychiatric Exam Present: normal affect, normal thought process - Urinary Catheter Management Indwelling Urethral Catheter Cath placed during this visit: yes Reason for continuing: Hourly intake/output Insertion date: 11/29/17 <Arlene Harding - Last Filed: 12/01/17 15:41> Vital signs: Vital Signs 11/30/17 20:00 12/01/17 08:00 12/01/17 12:00 Temperature 98 F 97.7 F 98 F Pulse Rate 70 69 69 Respiratory Rate 18 16 16 Blood Pressure 125/60 142/63 H 132/60 Pulse Oximetry 98 100 97 12/01/17 12:53 12/01/17 16:00 Temperature 98 F Pulse Rate 69 69 Respiratory Rate 16 Blood Pressure 116/57 L Pulse Oximetry 99 Intake & Output 11/30/17 12/01/17 12/01/17 18:59 06:59 18:59 Intake Total 1220 / 1220 1000 / 1000 1200 / 1200 Output Total 751 / 751 4 / 4 Balance 469 / 469 1000 / 1000 1196 / 1196 Intake: IV 1000 / 1000 1200 / 1200 1/2 Normal Saline Inj 1,000 ML 1000 / 1000 1000 / 1000 @ 50 mls/hr IV.CONT .Q20H [facility] Rx#:[id number] Rocephin Inj 2,000 MG In NS Inj 200 / 200 100 ML @ 200 mls/hr IV.SIG Q24H [facility] Rx#:[id number] Oral 1220 / 1220 Output: Urine 750 / 750 4 / 4 Stool 1 / 1 Other: Date of Last Bowel Movement 11/30/17 11/29/17 12/01/17 # Bowel Movements 4 # Incontinent Bowel Movements 2 - Urinary Catheter Management Indwelling Urethral Catheter Cath placed during this visit: no <Isaias Cruz - Last Filed: 12/01/17 18:00> Assessment and Plan - Assessment (1) NANCY (acute kidney injury) Code(s): N17.9 - Acute kidney failure, unspecified Status: Acute Plan: Baseline creatinine 0.8. NANCY due to vancomycin induced renal injury vs. prerenal azotemia. May have progressed to ATN. Renal function stable overnight. IVF continues as PO may be inadequate (1/2 NS @ 75cc/hr). He is non oliguric, incontinent most of the time. Avoid nephrotoxic agents Still awaiting UA. PO fluids encouraged. Bumex is held. Obtain daily labs. (2) Hypokalemia Code(s): E87.6 - Hypokalemia Status: Acute Plan: Improved (3) Osteomyelitis Code(s): M86.9 - Osteomyelitis, unspecified Status: Acute Qualifiers: Osteomyelitis type: unspecified type Osteomyelitis location: other site Qualified Code(s): M86.9 - Osteomyelitis, unspecified Plan: ID and ortho following s/P I&D On Rocephin and PO Flagyl, off Zosyn. <Arlene Harding - Last Filed: 12/01/17 15:41> - Assessment (1) NANCY (acute kidney injury) Code(s): N17.9 - Acute kidney failure, unspecified Status: Acute (2) Hypokalemia Code(s): E87.6 - Hypokalemia Status: Acute (3) Osteomyelitis Code(s): M86.9 - Osteomyelitis, unspecified Status: Acute Qualifiers: Osteomyelitis type: unspecified type Osteomyelitis location: other site Qualified Code(s): M86.9 - Osteomyelitis, unspecified - Attending Attestation patient was seen and examined. Agree with above assessment and plan. <Isaias Cruz - Last Filed: 12/01/17 18:00>
[2017-12-02 06:26] LABS: Albumin 2.5 g/dL (3.4-5.0); Calcium 8.1 mg/dL (8.5-10.1); Carbon Dioxide 19.3 meq/L (21.0-32.0); Potassium 3.6 meq/L (3.5-5.1)
[2017-12-02] MEDS: metroNIDAZOLE 500 MG Tablet PO SCH ×3 (06:46→22:44)
--- NOTE | 2017-12-02 07:27 | P.PN ---
Subjective Interval history: Follow-up on patient with osteomyelitis left index finger status post I&D, acute renal failure. Patient seen and examined. Left index finger appears to be improving. Patient reports mild pain. Patient remains pleasantly confused, oriented to self only. Denies any other acute medical complaints. Discussed with nursing staff, unable to get accurate urine output secondary to patient pulling condom cath off and incontinence. Physical Exam Vital signs: Vital Signs 12/01/17 08:00 12/01/17 12:00 12/01/17 12:53 Temperature 97.7 F 98 F Pulse Rate 69 69 69 Respiratory Rate 16 16 Blood Pressure 142/63 H 132/60 Pulse Oximetry 100 97 12/01/17 16:00 12/01/17 20:00 12/02/17 00:00 Temperature 98 F 98.3 F 98.1 F Pulse Rate 69 70 69 Respiratory Rate 16 18 18 Blood Pressure 116/57 L 147/65 H 133/61 Pulse Oximetry 99 95 98 Intake & Output 12/01/17 12/02/17 12/02/17 18:59 06:59 18:59 Intake Total 1200 / 1200 1150 / 1150 Output Total 4 / 4 2 / 2 Balance 1196 / 1196 1148 / 1148 Intake: IV 1200 / 1200 1000 / 1000 1/2 Normal Saline Inj 1,000 ML 1000 / 1000 1000 / 1000 @ 50 mls/hr IV.CONT .Q20H [facility] Rx#:[id number] Rocephin Inj 2,000 MG In NS Inj 200 / 200 100 ML @ 200 mls/hr IV.SIG Q24H [facility] Rx#:[id number] Oral 150 / 150 Output: Urine 4 / 4 Stool 2 / 2 Other: Date of Last Bowel Movement 12/01/17 # Bowel Movements 1 # Incontinent Bowel Movements 1 Narrative: GENERAL: WDWN elderly male patient. Awake and alert. Not in any distress. In 2 point soft restraints. SKIN: Warm and dry. No generalized rash. HEAD: Atraumatic. Normocephalic. EYES: Pupils equal and round. No scleral icterus. No injection or drainage. ENT: No nasal bleeding or discharge. Mucous membranes pink and moist. NECK: Trachea midline. CARDIOVASCULAR: Regular rate and rhythm. RESPIRATORY: No accessory muscle use. Clear to auscultation. Breath sounds equal bilaterally. GASTROINTESTINAL: Abdomen soft, non-tender, nondistended. +BS. MUSCULOSKELETAL: Left index finger s/p I&D, distal aspect with less erythema and edema, sutures in place, improving with less redness and swelling. Open area over distal aspect of incision below nail bed. NEUROLOGICAL: Awake and alert. Confused. Oriented to self only. No obvious cranial nerve deficits. Motor grossly within normal limits. Nonfocal. Minimal speech. PSYCHIATRIC: Flat affect. Calm. - Urinary Catheter Management Indwelling Urethral Catheter Cath placed during this visit: yes Reason for continuing: Hourly intake/output Insertion date: 11/29/17 Results - Labs CBC & Chem 7: 11/30/17 04:45 12/02/17 05:36 Laboratory Results - last 24 hr 12/01/17 12/02/17 09:23 05:36 Sodium 144 145 Potassium 3.6 3.6 Chloride 111 H 113 H Carbon Dioxide 21.2 19.3 L Anion Gap 12 13 BUN 27 H 29 H Creatinine 3.29 H 3.32 H Estimated GFR 18 L 18 L Random Glucose 98 91 Calcium 7.9 L 8.1 L Phosphorus 2.3 L 3.0 Albumin 2.4 L 2.5 L Assessment and Plan - Assessment (1) Osteomyelitis Code(s): M86.9 - Osteomyelitis, unspecified Status: Acute (2) NANCY (acute kidney injury) Code(s): N17.9 - Acute kidney failure, unspecified Status: Acute (3) Hypokalemia Code(s): E87.6 - Hypokalemia Status: Acute - Plan 87-year-old male admitted secondary to osteomyelitis Acute renal failure, likely multifactorial on Vancomycin and Zosyn ? hypoperfusion with low BP Creatinine jumped from 0.86 to 2.25 Vancomycin stopped. Bumex held. IVF hydration. Zosyn d/c'd by ID 11/30. Worsening, repeat Cr 3.32 today. Increase IV fluid rate as patient has been in restraints and oral fluid intake likely low. BUN 29. Patient is nonoliguric. Difficulty obtaining accurate urine output secondary to patient's noncompliance with condom cath. Attempted Curiel several days ago, but patient developed traumatic hematuria after pulling on Curiel. Order given for straight cath today to obtain specimen for urine studies previously ordered. Nephrology following, appreciate assistance Continue on IVF hydration per Nephrology Renal US shows abnormal bladder appearance but no obstruction Monitor UOP, inaccurate as patient pulled off condom cath. avoid nephrotoxic agents Monitor kidney function - daily labs Osteomyelitis, left index finger ?Gout Uric acid WNL. Urine uric acid ordered but not drawn as of yet XR with findings c/w osteomyelitis with bony destruction DIP joint second digit s/p I&D, wound cx with no growth Hand surgeon following. Op note reviewed, significant amount of white, chalky tophi c/w gout. Per Dr. Tilley, awaiting Intra-Op results, may need repeat I&D on Thursday. Continue wound care per Dr. Tilley's instructions. Continue [place] for pain ID following, appreciate assistance. IV Zosyn and Vancomycin d/c'd. On po Flagyl and IV Ceftriaxone. DW Dr. Thomas, unable to treat with antigout agent 2 /2 elevated Cr. 11/30 started on low dose steroid for gout tx, continue. Leukocytosis white count trending up afebrile ?worsening infection will be difficult to trend as patient will be started on po steroids Hypotensive, asymptomatic Improved on IVF continue on Metoprolol 12.5mg BID with hold parameters monitor BP A. fib, chronic Continue metoprolol at lower dose with hold parameters Xarelto on hold for potential preop situation Monitor telemetry Hypokalemia K 3.3 resolved s/p repletion monitor K as indicated Dementia with behavioral disturbances, chronic Supportive care Continue baseline management DVT prophylaxis SCDs Code Status: FULL Discussed Condition With: patient, nursing staff, Dr. Foreman Discharge Planning: Not ready for discharge. Discharge pending clinical improvement, Nephrology, ID and Hand sx clearance. (1) Osteomyelitis Qualifiers: Osteomyelitis type: unspecified type Osteomyelitis location: other site Qualified Code(s): M86.9 - Osteomyelitis, unspecified
[2017-12-02] MEDS: Sodium Chloride 0.45 % Inj 1,000 ML IV.CONT SCH ×2 (09:14→17:56)
[2017-12-02] MEDS: Metoprolol Tartrate 25 MG Tablet PO SCH ×2 (09:16→22:44)
[2017-12-02] MEDS: Heparin - SQ 10,000 UNITS/ML Vial SQ SCH ×2 (09:16→22:44)
[2017-12-02] MEDS: Folic Acid 1 MG Tablet PO SCH (09:16)
[2017-12-02] MEDS: Haloperidol 1 MG Tablet PO SCH (09:17)
[2017-12-02 10:58] LABS: Amorphous Sediment,Urine Moderate /hpf; Bilirubin,Urine Negative (Negative); Clarity,Urine Cloudy (Clear); Color,Urine Yellow (Yellw/Straw); Glucose,Urine (UA) Negative (Negative); Leukocyte Esterase,Urine Trace (Negative); Nitrite,Urine Negative (Negative); Specific Gravity,Urine 1.008 (1.002-1.035); Squamous Epithelial Cell,Urine <1 /hpf (0-5)
[2017-12-02 11:01] LABS: Creatinine,Urine Random 71 mg/dL (27-300)
--- NOTE | 2017-12-02 11:04 | P.PNNP ---
Subjective Interval history: Creatinine is slightly higher. He is confused. Pending straight cath for UA. <Arlene Harding - Last Filed: 12/02/17 11:02> Physical Exam Vital signs: Vital Signs 12/01/17 12:00 12/01/17 12:53 12/01/17 16:00 Temperature 98 F 98 F Pulse Rate 69 69 69 Respiratory Rate 16 16 Blood Pressure 132/60 116/57 L Pulse Oximetry 97 99 12/01/17 20:00 12/02/17 00:00 12/02/17 04:00 Temperature 98.3 F 98.1 F 97.8 F Pulse Rate 70 69 72 Respiratory Rate 18 18 18 Blood Pressure 147/65 H 133/61 150/66 H Pulse Oximetry 95 98 95 12/02/17 07:00 12/02/17 08:00 Temperature 98.1 F Pulse Rate 69 Respiratory Rate 12 18 Blood Pressure 138/64 Pulse Oximetry 95 Intake & Output 12/01/17 12/02/17 12/02/17 18:59 06:59 18:59 Intake Total 1200 / 1200 1150 / 1150 100 / 100 Output Total 4 / 4 2 / 2 Balance 1196 / 1196 1148 / 1148 100 / 100 Weight 90.718 kg Intake: IV 1200 / 1200 1000 / 1000 100 / 100 1/2 Normal Saline Inj 1,000 ML 1000 / 1000 1000 / 1000 @ 50 mls/hr IV.CONT .Q20H [facility] Rx#:[id number] Rocephin Inj 2,000 MG In NS Inj 200 / 200 100 / 100 100 ML @ 200 mls/hr IV.SIG Q24H [facility] Rx#:[id number] Oral 150 / 150 Output: Urine 4 / 4 Stool 2 / 2 Other: # Voids 2 1 Date of Last Bowel Movement 12/01/17 12/02/17 12/02/17 # Bowel Movements 1 1 1 # Incontinent Bowel Movements 1 - Constitutional no acute distress, chronically ill appearing - Routine HEENT Exam Head: Present: normocephalic - Routine Neck Exam Present: supple, full ROM - Routine Respiratory Exam Present: CTA bilaterally. Absent: accessory muscle use - Routine Cardiovascular Exam Present: RRR, S1, S2 - Routine Abdominal Exam Present: soft, normoactive bowel sounds - Routine Extremities Exam Present: full ROM, pulses intact. Absent: edema - Routine Skin Exam Present: intact, dry Comments: left index finger wound - Detailed Neurological Exam: Coma Scale Eye Opening: Spontaneous Verbal Response: Confused Motor Response: Obey commands Jon Coma Scale Total: 14 - Routine Psychiatric Exam Present: normal affect, normal thought process, cooperative. Absent: suicidal ideation - Urinary Catheter Management Indwelling Urethral Catheter Cath placed during this visit: yes Reason for continuing: Hourly intake/output Insertion date: 11/29/17 <Arlene Harding - Last Filed: 12/02/17 11:02> Vital signs: Vital Signs 12/02/17 16:00 12/02/17 17:20 12/02/17 18:00 Temperature 98.3 F Pulse Rate 69 69 Respiratory Rate 18 12 Blood Pressure 139/61 Pulse Oximetry 95 12/02/17 20:00 12/03/17 00:00 12/03/17 05:45 Temperature 98.0 F 98.8 F 97.2 F L Pulse Rate 69 68 66 Respiratory Rate 18 21 20 Blood Pressure 146/68 H 130/80 128/88 Pulse Oximetry 99 94 L 94 L 12/03/17 08:00 12/03/17 12:00 Temperature 97.7 F 97.6 F Pulse Rate 70 69 Respiratory Rate 20 16 Blood Pressure 150/65 H 149/67 H Pulse Oximetry 95 98 Intake & Output 12/02/17 12/03/17 12/03/17 18:59 06:59 18:59 Intake Total 1100 / 1100 490 / 490 Output Total 200 / 200 Balance 900 / 900 490 / 490 Weight 91 kg Intake: IV 1100 / 1100 1/2 Normal Saline Inj 1,000 ML 1000 / 1000 @ 50 mls/hr IV.CONT .Q20H [facility] Rx#:[id number] Rocephin Inj 2,000 MG In NS Inj 100 / 100 100 ML @ 200 mls/hr IV.SIG Q24H [facility] Rx#:[id number] Oral 490 / 490 Output: Urine 200 / 200 Other: # Voids 1 2 # Incontinent Voids 4 Date of Last Bowel Movement 12/02/17 12/02/17 # Bowel Movements 1 # Incontinent Bowel Movements 0 - Urinary Catheter Management Indwelling Urethral Catheter Cath placed during this visit: no <Isaias Cruz - Last Filed: 12/03/17 15:33> Assessment and Plan - Assessment (1) NANCY (acute kidney injury) Code(s): N17.9 - Acute kidney failure, unspecified Status: Acute Plan: Baseline creatinine 0.8. NANCY due to vancomycin induced renal injury vs. prerenal azotemia. May have progressed to ATN. Renal function slightly worse. IVF continues as PO may be inadequate, reduce to 50 cc/hr. He is non oliguric, incontinent most of the time. Avoid nephrotoxic agents UA pending, he was straight cathed by RN this morning. PO fluids encouraged. Bumex on hold. Obtain daily labs. (2) Hypokalemia Code(s): E87.6 - Hypokalemia Status: Acute Plan: Improved (3) Osteomyelitis Code(s): M86.9 - Osteomyelitis, unspecified Status: Acute Qualifiers: Osteomyelitis type: unspecified type Osteomyelitis location: other site Qualified Code(s): M86.9 - Osteomyelitis, unspecified Plan: ID and ortho following s/P I&D On Rocephin and PO Flagyl,. <Arlene Harding - Last Filed: 12/02/17 11:02> - Assessment (1) NANCY (acute kidney injury) Code(s): N17.9 - Acute kidney failure, unspecified Status: Acute (2) Hypokalemia Code(s): E87.6 - Hypokalemia Status: Acute (3) Osteomyelitis Code(s): M86.9 - Osteomyelitis, unspecified Status: Acute Qualifiers: Osteomyelitis type: unspecified type Osteomyelitis location: other site Qualified Code(s): M86.9 - Osteomyelitis, unspecified - Attending Attestation patient was seen and examined. Agree with above assessment and plan. Obtain UA, straight cath needed. Discussed with RN. Seen on 12/02/17. <Isaias Cruz - Last Filed: 12/03/17 15:33>
--- NOTE | 2017-12-02 11:31 | XR ---
EXAM DATE: 12/02/2017 10:48 AM EDT AGE/SEX: 87 years / Male INDICATIONS: Cough and shortness of breath. CLINICAL DATA: This is the patient's subsequent encounter. Patient reports that signs and symptoms h ave been present for 4 - 6 days and indicates a pain score of 0/10. MEDICAL/SURGICAL HISTORY: None. Pacemaker. COMPARISON: [facility] [place], CHEST SINGLE AP, 12/13/2015. . FINDINGS: Portable AP views of the chest demonstrate cardiac silhouette size at the upper limits for normal wit h calcification of the aorta. Left chest wall cardiac pacing device is present and EKG lines overlie the patient. There are bibasilar pleural-parenchymal opacities with interstitial prominence in the pe rihilar distribution. No pneumothorax is identified. The bones and soft tissues demonstrate no acute finding. CONCLUSION: Bibasilar opacities characteristic of pleural effusions with associated volume loss and/or airspace c onsolidation. The effusions as well as perihilar interstitial opacities suggest pulmonary edema as th e etiology. Electronically signed by: Wali Ruiz MD 12/02/2017 11:30 AM EDT
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
[2017-12-03] MEDS: metroNIDAZOLE 500 MG Tablet PO SCH ×3 (05:36→22:16)
--- NOTE | 2017-12-03 07:37 | P.PN ---
Subjective Interval history: Patient is somnolent this morning. Reviewed medication list, no sedatives given since Haldol was given yesterday at 917am. Patient will respond to touch but only barely opens eyes and moans. He is afebrile. Vital signs are stable. He is in 2 point soft restraints. Physical Exam Vital signs: Vital Signs 12/02/17 08:00 12/02/17 12:00 12/02/17 16:00 Temperature 98.1 F 97.6 F 98.3 F Pulse Rate 69 70 69 Respiratory Rate 18 18 18 Blood Pressure 138/64 130/60 139/61 Pulse Oximetry 95 95 95 12/02/17 17:20 12/02/17 18:00 12/02/17 20:00 Temperature 98.0 F Pulse Rate 69 69 Respiratory Rate 12 18 Blood Pressure 146/68 H Pulse Oximetry 99 12/03/17 00:00 12/03/17 05:45 Temperature 98.8 F 97.2 F L Pulse Rate 68 66 Respiratory Rate 21 20 Blood Pressure 130/80 128/88 Pulse Oximetry 94 L 94 L Intake & Output 12/02/17 12/03/17 12/03/17 18:59 06:59 18:59 Intake Total 1100 / 1100 490 / 490 Output Total 200 / 200 Balance 900 / 900 490 / 490 Weight 91 kg Intake: IV 1100 / 1100 1/2 Normal Saline Inj 1,000 ML 1000 / 1000 @ 50 mls/hr IV.CONT .Q20H [facility] Rx#:[id number] Rocephin Inj 2,000 MG In NS Inj 100 / 100 100 ML @ 200 mls/hr IV.SIG Q24H [facility] Rx#:[id number] Oral 490 / 490 Output: Urine 200 / 200 Other: # Voids 1 2 # Incontinent Voids 4 Date of Last Bowel Movement 12/02/17 # Bowel Movements 1 # Incontinent Bowel Movements 0 Narrative: GENERAL: WDWN elderly male patient,INAD. Somnolent. In 2 point soft restraints. SKIN: Warm and dry. No generalized rash. HEAD: Atraumatic. Normocephalic. EYES: Pupils equal and round. No scleral icterus. No injection or drainage. ENT: No nasal bleeding or discharge. Mucous membranes pink and moist. NECK: Trachea midline. CARDIOVASCULAR: Regular rate and rhythm. RESPIRATORY: No accessory muscle use. Clear to auscultation anteriorly. Breath sounds equal bilaterally. GASTROINTESTINAL: Abdomen soft, non-tender, nondistended. +BS. MUSCULOSKELETAL: Left index finger s/p I&D, distal aspect with less erythema and edema, sutures in place, improving with less redness and swelling. Open area over distal aspect of incision below nail bed. NEUROLOGICAL: Somnolent. Not following commands. PSYCHIATRIC: Unable to assess at this time 2/2 somnolence. - Urinary Catheter Management Indwelling Urethral Catheter Cath placed during this visit: yes Reason for continuing: Hourly intake/output Insertion date: 11/29/17 Results - Labs CBC & Chem 7: 12/03/17 09:27 12/03/17 09:27 Laboratory Results - last 24 hr 12/02/17 12/02/17 12/02/17 05:36 10:00 10:00 Total Creatine Kinase 79 Urine Color Urine Clarity Urine pH Ur Specific [place] Urine Protein Urine Glucose (UA) Urine Ketones Urine Occult Blood Urine Nitrate Urine Bilirubin Urine Urobilinogen Ur Leukocyte Esterase Urine RBC Urine WBC Ur Squamous Epith Cells Amorphous Sediment Micro UA Comment Ur Microscopic Review Urine Culture Comments Urine Eosinophils Rare H Ur Random Creatinine 71 Ur Random Sodium 23 Ur Random Uric Acid 12/02/17 12/02/17 10:00 10:00 Total Creatine Kinase Urine Color Yellow Urine Clarity Cloudy H Urine pH 6.0 Ur Specific [place] 1.008 Urine Protein 100 H Urine Glucose (UA) Negative Urine Ketones Trace Urine Occult Blood Moderate H Urine Nitrate Negative Urine Bilirubin Negative Urine Urobilinogen Less than 2 Ur Leukocyte Esterase Trace H Urine RBC 4 H Urine WBC 1 Ur Squamous Epith Cells <1 Amorphous Sediment Moderate H Micro UA Comment Cath-culture not ind Ur Microscopic Review Not Reportable Urine Culture Comments Cath-cult not ind Urine Eosinophils Ur Random Creatinine Ur Random Sodium Ur Random Uric Acid 8.6 - Imaging Impressions Chest X-Ray 12/02/17 00:00 CONCLUSION: Bibasilar opacities characteristic of pleural effusions with associated volume loss and/or airspace consolidation. The effusions as well as perihilar interstitial opacities suggest pulmonary edema as the etiology. Assessment and Plan - Assessment (1) Osteomyelitis Code(s): M86.9 - Osteomyelitis, unspecified Status: Acute (2) NANCY (acute kidney injury) Code(s): N17.9 - Acute kidney failure, unspecified Status: Acute (3) Hypokalemia Code(s): E87.6 - Hypokalemia Status: Acute - Plan 87-year-old male admitted secondary to osteomyelitis Somnolent Hold all sedating medications reviewed labs, Na 149, WBC 10.5, ammonia level WNL ABG ordered/reviewed pCO2 28, pO2 92 CXR shows slight interval improvement Monitor Acute renal failure, likely multifactorial on Vancomycin and Zosyn ? hypoperfusion with low BP Hypernatremic Creatinine jumped from 0.86 to 2.25 Vancomycin stopped. Bumex held. IVF hydration. Zosyn d/c'd by ID 11/30. Nephrology following, appreciate assistance continue on IVF per Nephrology - changed to D5W 2/2 hypernatremia Cr a little better today, 3.32 -> 3.25 Renal US shows abnormal bladder appearance but no obstruction UOP not recorded +urine eosinophils avoid nephrotoxic agents Monitor kidney function - daily labs Osteomyelitis, left index finger ?Gout Uric acid WNL. Urine uric acid ordered but not drawn as of yet XR with findings c/w osteomyelitis with bony destruction DIP joint second digit s/p I&D, wound cx with no growth. Path c/w gout and possible osteo vs gout crystals Hand surgeon following. Op note reviewed, significant amount of white, chalky tophi c/w gout. Per Dr. Tilley, may need repeat I&D on Thursday. Continue wound care per Dr. Tilley's instructions. Continue [place] for pain ID following, appreciate assistance. IV Zosyn and Vancomycin d/c'd. On po Flagyl and IV Ceftriaxone. On low dose po Prednisone A. fib, chronic Continue metoprolol at lower dose with hold parameters Xarelto on hold for potential preop situation Monitor telemetry Hypokalemia K 3.4 IV repletion monitor K as indicated Dementia with behavioral disturbances, chronic Supportive care Continue baseline management DVT prophylaxis SCDs Code Status: FULL Discussed Condition With: nursing staff, Dr. Foreman Discharge Planning: Not ready for discharge. Discharge pending clinical improvement, Nephrology, ID and Hand sx clearance. (1) Osteomyelitis Qualifiers: Osteomyelitis type: unspecified type Osteomyelitis location: other site Qualified Code(s): M86.9 - Osteomyelitis, unspecified
[2017-12-03] MEDS: Metoprolol Tartrate 25 MG Tablet PO SCH ×2 (10:27→22:16)
[2017-12-03] MEDS: Folic Acid 1 MG Tablet PO SCH (10:27)
[2017-12-03] MEDS: Heparin - SQ 10,000 UNITS/ML Vial SQ SCH ×2 (10:27→22:16)
[2017-12-03] MEDS: Haloperidol 1 MG Tablet PO SCH (10:28)
--- NOTE | 2017-12-03 10:40 | XR ---
EXAM DATE: 12/03/2017 10:37 AM EDT AGE/SEX: 87 years / Male INDICATIONS: Infiltrate CLINICAL DATA: This is the patient's initial encounter. Patient reports that signs and symptoms have been present for 4 - 6 days and indicates a pain score of Nonresponsive. MEDICAL/SURGICAL HISTORY: . a-fib, dementia . pacemaker COMPARISON: [facility], CHEST 1V SINGLE AP, 12/02/2017. . FINDINGS: A pacing implement is present with control pack over left upper chest. There is been slight improveme nt in aeration on the left with decrease in confluence of basilar infiltrate. Persistent hazy right-s ided pleural parenchymal opacity grossly unchanged. Cardiac contours are stable. CONCLUSION: Slight interval improvement in aeration. Electronically signed by: Wali Shukla MD 12/03/2017 10:38 AM EDT
[2017-12-03 10:46] LABS: ABG Base Excess -4.1 mmol/L (-2-2); ABG PCO2 28 mmHg (38-42); ABG PO2 92 mmHg (61-120)
[2017-12-03 10:59] LABS: Baso # (Auto) 0.1 th/mm3 (0.0-0.2); Baso % (Auto) 1.3 % (0.0-2.0); Eos # (Auto) 0.2 th/mm3 (0.0-0.4); Eos % (Auto) 1.9 % (0.0-4.0); Hematocrit 32.8 % (39.0-51.0); Hemoglobin 10.9 gm/dL (13.0-17.0); Lymph # (Auto) 1.1 th/mm3 (1.0-4.8); Lymph % (Auto) 10.6 % (9.0-44.0); Mean Corpuscular HGB Conc 33.2 % (32.0-36.0); Mean Corpuscular Volume 90.5 fL (80.0-100.0); Mean Platelet Volume 9.6 fL (7.0-11.0); Mono # (Auto) 1.4 th/mm3 (0.0-0.9); Mono % (Auto) 13.1 % (0.0-8.0); Neut # (Auto) 7.6 th/mm3 (1.8-7.7); Neut % (Auto) 73.1 % (16.0-70.0); Platelet Count 232 th/mm3 (150-450); Red Blood Count 3.62 mil/mm3 (4.50-5.90); Red Cell Distribution Width 15.9 % (11.6-17.2); White Blood Count 10.5 th/mm3 (4.0-11.0)
[2017-12-03 11:33] LABS: Albumin 2.4 g/dL (3.4-5.0); Calcium 8.1 mg/dL (8.5-10.1); Carbon Dioxide 20.9 meq/L (21.0-32.0); Potassium 3.4 meq/L (3.5-5.1)
[2017-12-03 11:34] LABS: Phosphorus 3.1 mg/dL (2.5-4.9)
--- NOTE | 2017-12-03 11:52 | P.PNNP ---
Subjective Interval history: Renal function is slightly better. Urine output not recorded. Hypernatremic today. He is sleeping, restrained, confused when awakened. <Arlene Harding - Last Filed: 12/03/17 11:47> Physical Exam Vital signs: Vital Signs 12/02/17 12:00 12/02/17 16:00 12/02/17 17:20 Temperature 97.6 F 98.3 F Pulse Rate 70 69 Respiratory Rate 18 18 12 Blood Pressure 130/60 139/61 Pulse Oximetry 95 95 12/02/17 18:00 12/02/17 20:00 12/03/17 00:00 Temperature 98.0 F 98.8 F Pulse Rate 69 69 68 Respiratory Rate 18 21 Blood Pressure 146/68 H 130/80 Pulse Oximetry 99 94 L 12/03/17 05:45 12/03/17 08:00 Temperature 97.2 F L 97.7 F Pulse Rate 66 70 Respiratory Rate 20 20 Blood Pressure 128/88 150/65 H Pulse Oximetry 94 L 95 Intake & Output 12/02/17 12/03/17 12/03/17 18:59 06:59 18:59 Intake Total 1100 / 1100 490 / 490 Output Total 200 / 200 Balance 900 / 900 490 / 490 Weight 91 kg Intake: IV 1100 / 1100 1/2 Normal Saline Inj 1,000 ML 1000 / 1000 @ 50 mls/hr IV.CONT .Q20H [facility] Rx#:[id number] Rocephin Inj 2,000 MG In NS Inj 100 / 100 100 ML @ 200 mls/hr IV.SIG Q24H [facility] Rx#:[id number] Oral 490 / 490 Output: Urine 200 / 200 Other: # Voids 1 2 # Incontinent Voids 4 Date of Last Bowel Movement 12/02/17 12/02/17 # Bowel Movements 1 # Incontinent Bowel Movements 0 - Constitutional no acute distress, chronically ill appearing - Routine HEENT Exam Head: Present: normocephalic - Routine Neck Exam Present: supple, full ROM - Routine Respiratory Exam Present: CTA bilaterally. Absent: accessory muscle use - Routine Cardiovascular Exam Present: RRR, S1, S2 - Routine Abdominal Exam Present: soft, normoactive bowel sounds Comments: bladder not palpable - Routine Extremities Exam Present: full ROM, pulses intact. Absent: edema - Routine Skin Exam Present: dry, wounds Comments: index finger wound - Routine Neurological Exam Present: CN II-XII intact, altered mental status, moving all extremities - Detailed Neurological Exam: Coma Scale Eye Opening: To sound Verbal Response: Confused Motor Response: Obey commands [place] Coma Scale Total: 13 - Routine Psychiatric Exam Present: unable to assess - Urinary Catheter Management Indwelling Urethral Catheter Cath placed during this visit: yes Reason for continuing: Hourly intake/output Insertion date: 11/29/17 <Arlene Harding - Last Filed: 12/03/17 11:47> Vital signs: Vital Signs 12/02/17 16:00 12/02/17 17:20 12/02/17 18:00 Temperature 98.3 F Pulse Rate 69 69 Respiratory Rate 18 12 Blood Pressure 139/61 Pulse Oximetry 95 12/02/17 20:00 12/03/17 00:00 12/03/17 05:45 Temperature 98.0 F 98.8 F 97.2 F L Pulse Rate 69 68 66 Respiratory Rate 18 21 20 Blood Pressure 146/68 H 130/80 128/88 Pulse Oximetry 99 94 L 94 L 12/03/17 08:00 12/03/17 12:00 Temperature 97.7 F 97.6 F Pulse Rate 70 69 Respiratory Rate 20 16 Blood Pressure 150/65 H 149/67 H Pulse Oximetry 95 98 Intake & Output 12/02/17 12/03/17 12/03/17 18:59 06:59 18:59 Intake Total 1100 / 1100 490 / 490 Output Total 200 / 200 Balance 900 / 900 490 / 490 Weight 91 kg Intake: IV 1100 / 1100 1/2 Normal Saline Inj 1,000 ML 1000 / 1000 @ 50 mls/hr IV.CONT .Q20H [facility] Rx#:[id number] Rocephin Inj 2,000 MG In NS Inj 100 / 100 100 ML @ 200 mls/hr IV.SIG Q24H [facility] Rx#:[id number] Oral 490 / 490 Output: Urine 200 / 200 Other: # Voids 1 2 # Incontinent Voids 4 Date of Last Bowel Movement 12/02/17 12/02/17 # Bowel Movements 1 # Incontinent Bowel Movements 0 - Urinary Catheter Management Indwelling Urethral Catheter Cath placed during this visit: no <Isaias Cruz - Last Filed: 12/03/17 15:44> Assessment and Plan - Assessment (1) NANCY (acute kidney injury) Code(s): N17.9 - Acute kidney failure, unspecified Status: Acute Plan: Baseline creatinine 0.8. NANCY due to vancomycin induced renal injury vs. prerenal azotemia. May have progressed to ATN. He has eosinophils in urine, may also have suffered AIN. Renal function slightly better. Change IVF to D5W with 20 mEq KCL @ 50cc/hr. Needs to be offered water more often given restraints. He is non oliguric, incontinent most of the time. Bladder not palpable. Avoid nephrotoxic agents UA not with infection. PO fluids encouraged. Bumex on hold. Obtain daily labs. (2) Hypokalemia Code(s): E87.6 - Hypokalemia Status: Acute Plan: Replacement in IVF. (3) Osteomyelitis Code(s): M86.9 - Osteomyelitis, unspecified Status: Acute Qualifiers: Osteomyelitis type: unspecified type Osteomyelitis location: other site Qualified Code(s): M86.9 - Osteomyelitis, unspecified Plan: ID and ortho following s/P I&D On Rocephin and PO Flagyl,. <Arlene Harding - Last Filed: 12/03/17 11:47> - Assessment (1) NANCY (acute kidney injury) Code(s): N17.9 - Acute kidney failure, unspecified Status: Acute (2) Hypokalemia Code(s): E87.6 - Hypokalemia Status: Acute (3) Osteomyelitis Code(s): M86.9 - Osteomyelitis, unspecified Status: Acute Qualifiers: Osteomyelitis type: unspecified type Osteomyelitis location: other site Qualified Code(s): M86.9 - Osteomyelitis, unspecified - Attending Attestation patient was seen and examined. Agree with above assessment and plan. <Isaias Cruz - Last Filed: 12/03/17 15:44>
[2017-12-03] MEDS: Potassium Chloride Inj 20 MEQ in Dextrose 5% in Water Inj 1,000 ML IV.CONT SCH ×2 (13:14)
[2017-12-03] MEDS: predniSONE 10 MG Tablet PO SCH (15:23)
[2017-12-04] MEDS ORDERED: Chlorhexidine Gluconate 2% 1 Pack (2 Cloths) TOPICAL SCH (04:45)
[2017-12-04] MEDS ORDERED: Sodium Chlor 0.9% Inj 500 ML IV.SIG SCH (05:00)
[2017-12-04] MEDS: metroNIDAZOLE 500 MG Tablet PO SCH ×2 (06:19→15:26)
--- NOTE | 2017-12-04 07:23 | P.PN ---
Subjective Interval history: Patient is stable. No significant change. Discussed with RN, no acute events noted overnight. NPO for repeat I&D later today. Patient is out of restraints. Physical Exam Vital signs: Vital Signs 12/03/17 08:00 12/03/17 12:00 12/03/17 16:00 Temperature 97.7 F 97.6 F 98.2 F Pulse Rate 70 69 70 Respiratory Rate 20 16 20 Blood Pressure 150/65 H 149/67 H 112/55 L Pulse Oximetry 95 98 98 12/03/17 19:46 12/04/17 00:00 12/04/17 04:00 Temperature 98 F 98.5 F 97.6 F Pulse Rate 69 70 71 Respiratory Rate 20 17 18 Blood Pressure 146/67 H 147/67 H 153/69 H Pulse Oximetry 99 98 98 Intake & Output 12/03/17 12/04/17 12/04/17 18:59 06:59 18:59 Intake Total 2348 / 2348 Output Total 3 / 3 Balance 2345 / 2345 Weight 91 kg Intake: IV 1100 / 1100 1/2 Normal Saline Inj 1,000 ML 1000 / 1000 @ 50 mls/hr IV.CONT .Q20H [facility] Rx#:[id number] Rocephin Inj 2,000 MG In NS Inj 100 / 100 100 ML @ 200 mls/hr IV.SIG Q24H [facility] Rx#:[id number] Oral 480 / 480 Tube Feeding 768 / 768 Output: Urine 3 / 3 Other: # Voids 1 # Incontinent Voids 1 Date of Last Bowel Movement 12/02/17 12/02/17 # Incontinent Bowel Movements 1 Weight On Admission 91 kg Narrative: GENERAL: WDWN elderly male patient. Awake. Confused. Not in any acute distress. SKIN: Warm and dry. No generalized rash. HEAD: Atraumatic. Normocephalic. EYES: Pupils equal and round. No scleral icterus. No injection or drainage. ENT: No nasal bleeding or discharge. Mucous membranes pink and moist. NECK: Trachea midline. CARDIOVASCULAR: Regular rate and rhythm. RESPIRATORY: No accessory muscle use. Clear to auscultation anteriorly. Breath sounds equal bilaterally. GASTROINTESTINAL: Abdomen soft, non-tender, nondistended. +BS. MUSCULOSKELETAL: Left index finger s/p I&D, distal aspect with less erythema and edema, sutures in place, improving with less redness and swelling. Open area over distal aspect of incision below nail bed. NEUROLOGICAL: Awake. Confused. Able to move all extremities spontaneously. Nonfocal. PSYCHIATRIC: Calm and cooperative. - Urinary Catheter Management Indwelling Urethral Catheter Cath placed during this visit: yes Reason for continuing: Hourly intake/output Insertion date: 11/29/17 Results - Labs CBC & Chem 7: 12/03/17 09:27 12/04/17 06:59 Laboratory Results - last 24 hr 12/03/17 12/03/17 12/03/17 09:27 09:27 10:35 WBC 10.5 RBC 3.62 L Hgb 10.9 L Hct 32.8 L MCV 90.5 MCH 30.0 MCHC 33.2 RDW 15.9 Plt Count 232 D MPV 9.6 Neut % (Auto) 73.1 H Lymph % (Auto) 10.6 [place] % (Auto) 13.1 H Eos % (Auto) 1.9 Baso % (Auto) 1.3 Neut # (Auto) 7.6 Lymph # (Auto) 1.1 [place] # (Auto) 1.4 H Eos # (Auto) 0.2 Baso # (Auto) 0.1 WBC Differential . Differential Comment Auto diff final Puncture Site Left radial Patient Temperature 98.6 O2 Saturation 96 ABG pH 7.45 H ABG pCO2 28 L ABG pO2 92 ABG HCO3 19 L ABG O2 Content 14.3 ABG Base Excess -4.1 L ABG Methemoglobin 1.0 Bill Test Present Hemoglobin 10.6 L Carboxyhemoglobin 1.5 O2 Delivery Device Ra Inspired O2 21 Critical Value No Sodium 149 H Potassium 3.4 L Chloride 116 H Carbon Dioxide 20.9 L Anion Gap 12 BUN 32 H Creatinine 3.25 H Estimated GFR 18 L Random Glucose 91 Calcium 8.1 L Phosphorus 3.1 Magnesium Ammonia Albumin 2.4 L 12/03/17 12/03/17 11:46 11:46 WBC RBC Hgb Hct MCV MCH MCHC RDW Plt Count MPV Neut % (Auto) Lymph % (Auto) [place] % (Auto) Eos % (Auto) Baso % (Auto) Neut # (Auto) Lymph # (Auto) [place] # (Auto) Eos # (Auto) Baso # (Auto) WBC Differential Differential Comment Puncture Site Patient Temperature O2 Saturation ABG pH ABG pCO2 ABG pO2 ABG HCO3 ABG O2 Content ABG Base Excess ABG Methemoglobin Bill Test Hemoglobin Carboxyhemoglobin O2 Delivery Device Inspired O2 Critical Value Sodium Potassium Chloride Carbon Dioxide Anion Gap BUN Creatinine Estimated GFR Random Glucose Calcium Phosphorus Magnesium 2.0 Ammonia 27 Albumin - Imaging Impressions Chest X-Ray 12/03/17 00:00 CONCLUSION: Slight interval improvement in aeration. Assessment and Plan - Assessment (1) Osteomyelitis Code(s): M86.9 - Osteomyelitis, unspecified Status: Acute (2) NANCY (acute kidney injury) Code(s): N17.9 - Acute kidney failure, unspecified Status: Acute (3) Hypokalemia Code(s): E87.6 - Hypokalemia Status: Acute - Plan 87-year-old male admitted secondary to osteomyelitis 12/04 patient is stable. Creatinine improved to 2.98. Hypernatremia improved, sodium now 145. Continue on D5W with KCL per nephrology. Patient is n.p.o. for repeat I&D with Dr. Tilley later today. Acute renal failure, likely multifactorial on Vancomycin and Zosyn ? hypoperfusion with low BP Hypernatremia, resolved Creatinine jumped from 0.86 to 3.32 Vancomycin stopped. Bumex held. Zosyn d/c'd by ID 11/30. Nephrology following, appreciate assistance continue on IVF per Nephrology - changed to D5W 2/2 hypernatremia. Unable to self hydrate - NPO 2/2 surgery and failed swallow eval. Renal US shows abnormal bladder appearance but no obstruction UOP not recorded +urine eosinophils avoid nephrotoxic agents Monitor kidney function - daily labs Osteomyelitis, left index finger ?Gout Uric acid WNL. Urine uric acid ordered but not drawn as of yet XR with findings c/w osteomyelitis with bony destruction DIP joint second digit s/p I&D, wound cx with no growth. Path c/w gout and possible osteo vs gout crystals Hand surgeon following. Per Dr. Tilley, repeat I&D today. Continue wound care per Dr. Tilley's instructions. Continue [place] for pain ID following, appreciate assistance. IV Zosyn and Vancomycin d/c'd. On po Flagyl and IV Ceftriaxone. On low dose po Prednisone for gout tx A. fib, chronic Continue metoprolol at lower dose with hold parameters Xarelto on hold for potential preop situation Monitor telemetry Hypertension Overall BP controlled Continue to monitor Hypokalemia resolved s/p repletion monitor K as indicated Dementia with behavioral disturbances, chronic Supportive care Continue baseline management Dysphagia Patient failed swallow eval, continue NPO Continue with ST on D5W DVT prophylaxis SCDs Code Status: FULL Discussed Condition With: patient, nursing staff, Dr. Foreman Discharge Planning: Not ready for discharge. Discharge pending clinical improvement, Nephrology, ID and Hand sx clearance. (1) Osteomyelitis Qualifiers: Osteomyelitis type: unspecified type Osteomyelitis location: other site Qualified Code(s): M86.9 - Osteomyelitis, unspecified
[2017-12-04 08:58] LABS: Albumin 2.4 g/dL (3.4-5.0); Calcium 8.1 mg/dL (8.5-10.1); Carbon Dioxide 20.8 meq/L (21.0-32.0); Potassium 3.6 meq/L (3.5-5.1)
[2017-12-04 08:59] LABS: Phosphorus 3.4 mg/dL (2.5-4.9)
--- NOTE | 2017-12-04 09:20 | P.PNNP ---
Subjective Interval history: He is resting. Renal function, potassium, and sodium levels have improved. On IVF. <Arlene HardingAlcides - Last Filed: 12/04/17 09:17> Physical Exam Vital signs: Vital Signs 12/03/17 12:00 12/03/17 16:00 12/03/17 19:46 Temperature 97.6 F 98.2 F 98 F Pulse Rate 69 70 69 Respiratory Rate 16 20 20 Blood Pressure 149/67 H 112/55 L 146/67 H Pulse Oximetry 98 98 99 12/04/17 00:00 12/04/17 04:00 12/04/17 07:28 Temperature 98.5 F 97.6 F 97.1 F L Pulse Rate 70 71 69 Respiratory Rate 17 18 16 Blood Pressure 147/67 H 153/69 H 136/65 Pulse Oximetry 98 98 98 Intake & Output 12/03/17 12/04/17 12/04/17 18:59 06:59 18:59 Intake Total 2348 / 2348 Output Total 3 / 3 Balance 2345 / 2345 Weight 91 kg Intake: IV 1100 / 1100 1/2 Normal Saline Inj 1,000 ML 1000 / 1000 @ 50 mls/hr IV.CONT .Q20H [facility] Rx#:[id number] Rocephin Inj 2,000 MG In NS Inj 100 / 100 100 ML @ 200 mls/hr IV.SIG Q24H [facility] Rx#:[id number] Oral 480 / 480 Tube Feeding 768 / 768 Output: Urine 3 / 3 Other: # Voids 1 # Incontinent Voids 1 Date of Last Bowel Movement 12/02/17 12/02/17 12/02/17 # Incontinent Bowel Movements 1 Weight On Admission 91 kg - Constitutional no acute distress, thin, cachectic - Routine Neck Exam Present: supple, full ROM. Absent: JVD - Routine Respiratory Exam Present: CTA bilaterally. Absent: accessory muscle use - Routine Cardiovascular Exam Present: RRR, S1, S2 - Routine Abdominal Exam Present: soft, normoactive bowel sounds - Routine Extremities Exam Present: pulses intact, normal capillary refill. Absent: edema - Routine Skin Exam Present: dry, warm Comments: left index finger wound - Routine Neurological Exam Present: CN II-XII intact, moving all extremities - Routine Psychiatric Exam Present: unable to assess - Urinary Catheter Management Indwelling Urethral Catheter Cath placed during this visit: yes Reason for continuing: Hourly intake/output Insertion date: 11/29/17 <Arlene Harding - Last Filed: 12/04/17 09:17> Vital signs: Vital Signs 12/03/17 16:00 12/03/17 19:46 12/04/17 00:00 Temperature 98.2 F 98 F 98.5 F Pulse Rate 70 69 70 Respiratory Rate 20 20 17 Blood Pressure 112/55 L 146/67 H 147/67 H Pulse Oximetry 98 99 98 12/04/17 04:00 12/04/17 07:28 12/04/17 12:00 Temperature 97.6 F 97.1 F L 97.9 F Pulse Rate 71 69 70 Respiratory Rate 18 16 16 Blood Pressure 153/69 H 136/65 155/73 H Pulse Oximetry 98 98 96 Intake & Output 12/03/17 12/04/17 12/04/17 18:59 06:59 18:59 Intake Total 2348 / 2348 1010 / 1010 Output Total 3 / 3 Balance 2345 / 2345 1010 / 1010 Weight 91 kg Intake: IV 1100 / 1100 1010 / 1010 KCl Inj 20 MEQ In D5W Inj 1,000 1010 / 1010 ML @ 50 mls/hr IV.CONT . [id number] [facility] Rx#:[id number] 1/2 Normal Saline Inj 1,000 ML 1000 / 1000 @ 50 mls/hr IV.CONT .Q20H [facility] Rx#:[id number] Rocephin Inj 2,000 MG In NS Inj 100 / 100 100 ML @ 200 mls/hr IV.SIG Q24H [facility] Rx#:[id number] Oral 480 / 480 0 / 0 Tube Feeding 768 / 768 Output: Urine 3 / 3 Other: # Voids 1 1 # Incontinent Voids 1 Date of Last Bowel Movement 12/02/17 12/02/17 12/02/17 # Bowel Movements 0 # Incontinent Bowel Movements 1 Weight On Admission 91 kg - Urinary Catheter Management Indwelling Urethral Catheter Cath placed during this visit: no <Isaias Cruz - Last Filed: 12/04/17 13:39> Assessment and Plan - Assessment (1) NANCY (acute kidney injury) Code(s): N17.9 - Acute kidney failure, unspecified Status: Acute Plan: Baseline creatinine 0.8. NANCY due to vancomycin induced renal injury vs. prerenal azotemia. May have progressed to ATN. + eosinophiluria, may also have suffered AIN. Renal function improved overnight. Continue D5W with 20 mEq KCL @ 50cc/hr. Needs to be offered water more often given restraints. D/W RN. He is non oliguric, incontinent most of the time. Bladder not palpable. Avoid nephrotoxic agents UA not with infection. Bumex on hold. Obtain daily labs. (2) Hypokalemia Code(s): E87.6 - Hypokalemia Status: Acute Plan: Replaced in IVF. (3) Osteomyelitis Code(s): M86.9 - Osteomyelitis, unspecified Status: Acute Qualifiers: Osteomyelitis type: unspecified type Osteomyelitis location: other site Qualified Code(s): M86.9 - Osteomyelitis, unspecified Plan: ID and ortho following s/P I&D On Rocephin and PO Flagyl,. <Arlene Harding - Last Filed: 12/04/17 09:17> - Assessment (1) NANCY (acute kidney injury) Code(s): N17.9 - Acute kidney failure, unspecified Status: Acute (2) Hypokalemia Code(s): E87.6 - Hypokalemia Status: Acute (3) Osteomyelitis Code(s): M86.9 - Osteomyelitis, unspecified Status: Acute Qualifiers: Osteomyelitis type: unspecified type Osteomyelitis location: other site Qualified Code(s): M86.9 - Osteomyelitis, unspecified - Attending Attestation patient was seen and examined. Agree with above assessment and plan. <Isaias Cruz - Last Filed: 12/04/17 13:39>
[2017-12-04] MEDS: Metoprolol Tartrate 25 MG Tablet PO SCH (10:09)
[2017-12-04] MEDS: Folic Acid 1 MG Tablet PO SCH (10:10)
[2017-12-04] MEDS: predniSONE 10 MG Tablet PO SCH (10:10)
[2017-12-04] MEDS: Potassium Chloride Inj 20 MEQ in Dextrose 5% in Water Inj 1,000 ML IV.CONT SCH ×2 (10:49)
[2017-12-04] MEDS ORDERED: Lidocaine PF 1% Inj 5 ML Syringe INFILTRATN ONE (12:00)
[2017-12-04] MEDS ORDERED: Phenylephrine/NS 1000 MCG/10ML Syringe IV.PUSH ONE (12:00)
[2017-12-04] MEDS ORDERED: Albumin Human 25% Inj 100 ML IV.SIG SCH (14:00)
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
[2017-12-04] MEDS ORDERED: fentaNYL Citrate Inj 250 MCG/5 ML Ampul ONE (17:13)
[2017-12-04] MEDS ORDERED: Lidocaine 2% Inj 50 ML Vial ONE (18:15)
--- NOTE | 2017-12-04 18:57 | P.PNOP ---
Physical Exam Vital signs: Vital Signs 12/03/17 19:46 12/04/17 00:00 12/04/17 04:00 Temperature 98 F 98.5 F 97.6 F Pulse Rate 69 70 71 Respiratory Rate 20 17 18 Blood Pressure 146/67 H 147/67 H 153/69 H Pulse Oximetry 99 98 98 12/04/17 07:28 12/04/17 12:00 12/04/17 16:00 Temperature 97.1 F L 97.9 F 98.1 F Pulse Rate 69 70 76 Respiratory Rate 16 16 18 Blood Pressure 136/65 155/73 H 149/74 H Pulse Oximetry 98 96 97 Intake & Output 12/03/17 12/04/17 12/04/17 18:59 06:59 18:59 Intake Total 2348 / 2348 1110 / 1110 Output Total 3 / 3 Balance 2345 / 2345 1110 / 1110 Weight 91 kg Intake: IV 1100 / 1100 1110 / 1110 KCl Inj 20 MEQ In D5W Inj 1,000 1010 / 1010 ML @ 50 mls/hr IV.CONT . [id number] [facility] Rx#:[id number] 1/2 Normal Saline Inj 1,000 ML 1000 / 1000 @ 50 mls/hr IV.CONT .Q20H [facility] Rx#:[id number] Rocephin Inj 2,000 MG In NS Inj 100 / 100 100 / 100 100 ML @ 200 mls/hr IV.SIG Q24H [facility] Rx#:[id number] Oral 480 / 480 0 / 0 Tube Feeding 768 / 768 Output: Urine 3 / 3 Other: # Voids 1 1 # Incontinent Voids 1 4 Date of Last Bowel Movement 12/02/17 12/02/17 12/02/17 # Bowel Movements 0 # Incontinent Bowel Movements 1 1 Weight On Admission 91 kg - Urinary Catheter Management Indwelling Urethral Catheter Cath placed during this visit: yes Reason for continuing: Hourly intake/output Insertion date: 11/29/17 Results - Labs CBC & Chem 7: 12/03/17 09:27 12/04/17 06:59 Laboratory Results - last 24 hr 12/04/17 06:59 Sodium 145 Potassium 3.6 Chloride 113 H Carbon Dioxide 20.8 L Anion Gap 11 BUN 34 H Creatinine 2.98 H Estimated GFR 20 L Random Glucose 127 H Calcium 8.1 L Phosphorus 3.4 Albumin 2.4 L Microbiology 11/27/17 20:59 Wound - Finger Fungal Smear - Final No fungal elements seen 11/27/17 20:59 Wound - Finger Fungal Culture - Preliminary No growth in 1 week 11/27/17 20:59 Wound - Finger Acid Fast Bacilli Smear - Final No acid fast bacilli seen 11/27/17 20:59 Wound - Finger Mycobacterial Culture - Preliminary No growth in 1 week Assessment and Plan - Assessment and Plan 87yM s/p I&D left index finger for likely infected gout although Uric Acid wnl. complete destruction of DIP joint on xray and intraoperative. Now POD0 s/p repeat I&D and closure. Unable to get MRI due to pacemaker. Cultures negative. Appreciate ID recs. Recommend continued antibiotics. 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 Intraop path consistent with gout. Daily dressing changes including xeroform, 4x4s, cling Will continue to follow. NOT cleared for discharge at this time. Possible 2 week followup once cleared for discharge
--- NOTE | 2017-12-04 21:26 | MP ---
cc: Heather Tilley MD DATE OF OPERATION: 12/04/2017 PREOPERATIVE DIAGNOSIS: Infected gout, left index finger. POSTOPERATIVE DIAGNOSIS: Infected gout, left index finger. PROCEDURE PERFORMED: Irrigation and debridement, left index finger with secondary closure. SURGEON: Heather Tilley MD ANESTHESIA: MAC. TOURNIQUET TIME: 20 minutes at 200 mmHg. INDICATIONS FOR PROCEDURE: Zackery Garner is an 87-year-old male who underwent incision and drainage by myself on 11/27/2017. He had significant improvement in the wound, but some dehiscence over the radial aspect where there was a large gouty tophi. I discussed with the patient's power of divorce attorney I recommended repeat irrigation and debridement, closure, and she signed informed consent. Risks were explained, which were not limited to wound complication, infection, need for additional surgeries, including amputation of the finger, and she elects to proceed. DESCRIPTION OF PROCEDURE: The patient was identified in the preoperative holding area; the correct extremity was marked. The patient was taken to the operating room. Anesthesia was induced. Left upper extremity prepped and draped in normal sterile fashion. The prior sutures were removed. There was significant improvement in the erythema and drainage. There was persistent gouty tophi. The wound was irrigated with the antibiotic saline and debrided with a rongeur. Vancomycin powder was placed in the wound. The wound was closed with 5-0 nylon. The patient was placed into a bulky dressing and awoken from anesthesia without any complications after approximately 10 mL of 2% lidocaine with no epinephrine used for local anesthesia. The patient remained in the hospital on IV antibiotics, gout medication and close followup. Heather Tilley MD [facility]/lc , 07:01 PM , 07:04 PM [email or web address]
--- NOTE | 2017-12-05 11:34 | P.PNIM ---
Subjective Interval history: PATIENT HAD SURGERY ON 12-04 WITH HAND SURGERY REMAINS QUITE CONFUSED TODAY DW RN AND PT AND CM Physical Exam Vital signs: Vital Signs 12/04/17 12:00 12/04/17 16:00 12/04/17 19:00 Temperature 97.9 F 98.1 F 97.3 F L Pulse Rate 70 76 69 Respiratory Rate 16 18 14 Blood Pressure 155/73 H 149/74 H 111/53 L Pulse Oximetry 96 97 94 L 12/04/17 19:15 12/04/17 19:30 12/04/17 19:45 Temperature 97.1 F L 97.3 F L 97.3 F L Pulse Rate 69 69 71 Respiratory Rate 14 14 14 Blood Pressure 120/58 L 123/58 L 144/63 H Pulse Oximetry 95 97 94 L 12/04/17 20:00 12/04/17 20:12 12/05/17 00:00 Temperature 97.9 F 97.8 F Pulse Rate 69 69 Respiratory Rate 18 16 18 Blood Pressure 140/64 133/63 Pulse Oximetry 97 98 12/05/17 04:00 12/05/17 08:00 Temperature 97.9 F 98.1 F Pulse Rate 70 70 Respiratory Rate 18 18 Blood Pressure 144/63 H 132/62 Pulse Oximetry 96 95 Intake & Output 12/04/17 12/05/17 12/05/17 18:59 06:59 18:59 Intake Total 1110 / 1110 1400 / 1400 Output Total 0 / 0 Balance 1110 / 1110 1400 / 1400 Weight 91 kg Intake: IV 1110 / 1110 1000 / 1000 KCl Inj 20 MEQ In D5W Inj 1,000 1010 / 1010 ML @ 50 mls/hr IV.CONT . [id number] [facility] Rx#:[id number] LR 1000 mL Inj 1,000 ML @ 30 1000 / 1000 mls/hr IV.SIG .Q24H [facility] Rx#: [id number] Rocephin Inj 2,000 MG In NS Inj 100 / 100 100 ML @ 200 mls/hr IV.SIG Q24H [facility] Rx#:[id number] Oral 0 / 0 Anesthesia Amount 400 / 400 Output: Estimated Blood Loss 0 / 0 Other: # Voids 1 # Incontinent Voids 4 2 Date of Last Bowel Movement 12/02/17 # Bowel Movements 0 # Incontinent Bowel Movements 1 1 Narrative: GENERAL: WDWN elderly male patient. Awake. Confused. Not in any acute distress. SKIN: Warm and dry. No generalized rash. HEAD: Atraumatic. Normocephalic. EYES: Pupils equal and round. No scleral icterus. No injection or drainage. ENT: No nasal bleeding or discharge. Mucous membranes pink and moist. NECK: Trachea midline. CARDIOVASCULAR: Regular rate and rhythm. RESPIRATORY: No accessory muscle use. Clear to auscultation anteriorly. Breath sounds equal bilaterally. GASTROINTESTINAL: Abdomen soft, non-tender, nondistended. +BS. MUSCULOSKELETAL: Left index finger s/p I&D, distal aspect with less erythema and edema, sutures in place, improving with less redness and swelling. SUTURES REMAIN IN PLACE NEUROLOGICAL: Awake. Confused. Able to move all extremities spontaneously. Nonfocal. PSYCHIATRIC: Calm and cooperative. - Urinary Catheter Management Indwelling Urethral Catheter Cath placed during this visit: yes Reason for continuing: Hourly intake/output Insertion date: 11/29/17 Results - Labs CBC & Chem 7: 12/03/17 09:27 12/04/17 06:59 Microbiology 11/27/17 20:59 Wound - Finger Fungal Smear - Final No fungal elements seen 11/27/17 20:59 Wound - Finger Fungal Culture - Preliminary No growth in 1 week 11/27/17 20:59 Wound - Finger Acid Fast Bacilli Smear - Final No acid fast bacilli seen 11/27/17 20:59 Wound - Finger Mycobacterial Culture - Preliminary No growth in 1 week - Imaging Finger X-Ray 11/25/17 20:06 CONCLUSION: Findings consistent with osteomyelitis with bony destruction DIP joint second digit Abdomen/Bladder Ultrasound 11/30/17 00:00 CONCLUSION: 1. Abnormal bladder appearance. 2. Small pleural effusions Chest X-Ray 12/02/17 00:00 CONCLUSION: Bibasilar opacities characteristic of pleural effusions with associated volume loss and/or airspace consolidation. The effusions as well as perihilar interstitial opacities suggest pulmonary edema as the etiology. Chest X-Ray 12/03/17 00:00 CONCLUSION: Slight interval improvement in aeration. - Procedures 11/27/2017 PREOPERATIVE DIAGNOSIS: Osteomyelitis versus abscess versus gout, left index finger. POSTOPERATIVE DIAGNOSIS: Osteomyelitis versus abscess versus gout, left index finger. PROCEDURE PERFORMED: 1. Incision and drainage abscess, left index finger distal interphalangeal joint. 2. Debridement, distal interphalangeal joint, left index finger. 3. Interpretation of fluoroscopy by the surgeon, left index finger. SURGEON: Heather Tilley MD ANESTHESIA: General and local. TOURNIQUET TIME: 7 minutes at 200 mmHg. SPECIMEN: Culture as well as mass for pathology. INDICATIONS FOR PROCEDURE: Zackery Garner is an 87-year-old male with a past medical history for dementia, who presented with erythema and swelling of the left index finger distal interphalangeal joint. Lab work concerning for infection. The patient failed oral treatment. Physical exam also concerning for gout, although the patient's uric acid is within normal limits at this time. The patient's power of employee benefits attorney elected to proceed with surgical intervention. Risks were explained which included, but not limited to, wound complication, infection, sepsis, need for additional surgeries, pain, extensor lag, need for amputation of the finger and she signed the verbal consent. DESCRIPTION OF PROCEDURE: The patient was identified in the preoperative holding and the correct extremity was marked. The patient was taken to the operating room where anesthesia was induced. Left upper extremity prepped and draped in normal sterile fashion. There was significant friable skin with some drainage consistent with possible gout, possible infection. A culture was sent. There was a significant amount of white, chalky tophi consistent with gout. This was sent for pathology. There was significant destruction of the distal interphalangeal joint, which was debrided. This was confirmed under fluoroscopy. This was debrided using a rongeur. Tourniquet was released. There was good capillary refill to the finger. Again, the skin was significantly friable. This was closed loosely with 4-0 and 5-0 chromic. The patient was placed into a soft dressing and awoken from anesthesia without complication. Approximately 8 mL of 2% lidocaine without epinephrine was used for local anesthesia. The patient will remain in the hospital. We will attempt to keep the dressing in place due to the significant thinness of the skin. I will consult infectious disease. The patient may also be treated aggressively for gout. Heather Tilley MD 12/04/2017 PREOPERATIVE DIAGNOSIS: Infected gout, left index finger. POSTOPERATIVE DIAGNOSIS: Infected gout, left index finger. PROCEDURE PERFORMED: Irrigation and debridement, left index finger with secondary closure. SURGEON: Heather Tilley MD ANESTHESIA: MAC. TOURNIQUET TIME: 20 minutes at 200 mmHg. INDICATIONS FOR PROCEDURE: Zackery Garner is an 87-year-old male who underwent incision and drainage by myself on 11/27/2017. He had significant improvement in the wound, but some dehiscence over the radial aspect where there was a large gouty tophi. I discussed with the patient's power of employee benefits attorney I recommended repeat irrigation and debridement, closure, and she signed informed consent. Risks were explained, which were not limited to wound complication, infection, need for additional surgeries, including amputation of the finger, and she elects to proceed. DESCRIPTION OF PROCEDURE: The patient was identified in the preoperative holding area; the correct extremity was marked. The patient was taken to the operating room. Anesthesia was induced. Left upper extremity prepped and draped in normal sterile fashion. The prior sutures were removed. There was significant improvement in the erythema and drainage. There was persistent gouty tophi. The wound was irrigated with the antibiotic saline and debrided with a rongeur. Vancomycin powder was placed in the wound. The wound was closed with 5-0 nylon. The patient was placed into a bulky dressing and awoken from anesthesia without any complications after approximately 10 mL of 2% lidocaine with no epinephrine used for local anesthesia. The patient remained in the hospital on IV antibiotics, gout medication and close followup. Heather Tilley MD Assessment and Plan - Assessment (1) Osteomyelitis Code(s): M86.9 - Osteomyelitis, unspecified Status: Acute (2) NANCY (acute kidney injury) Code(s): N17.9 - Acute kidney failure, unspecified Status: Acute (3) Hypokalemia Code(s): E87.6 - Hypokalemia Status: Acute - Plan 87-year-old male admitted secondary to osteomyelitis 12/04 patient is stable. Creatinine improved to 2.98. Hypernatremia improved, sodium now 145. Continue on D5W with KCL per nephrology. Patient is n.p.o. for repeat I&D with Dr. Tilley later today. Acute renal failure, likely multifactorial on Vancomycin and Zosyn ? hypoperfusion with low BP Hypernatremia, resolved Creatinine jumped from 0.86 to 3.32 Vancomycin stopped. Bumex held. Zosyn d/c'd by ID 11/30. Nephrology following, appreciate assistance continue on IVF per Nephrology - changed to D5W 2/2 hypernatremia. Unable to self hydrate - NPO 2/2 surgery and failed swallow eval. Renal US shows abnormal bladder appearance but no obstruction UOP not recorded +urine eosinophils avoid nephrotoxic agents Monitor kidney function - daily labs Osteomyelitis, left index finger ?Gout Uric acid WNL. Urine uric acid ordered but not drawn as of yet XR with findings c/w osteomyelitis with bony destruction DIP joint second digit s/p I&D, wound cx with no growth. Path c/w gout and possible osteo vs gout crystals Hand surgeon following. Per Dr. Tilley, repeat I&D today. Continue wound care per Dr. Tilley's instructions. Continue [place] for pain ID following, appreciate assistance. IV Zosyn and Vancomycin d/c'd. On po Flagyl and IV Ceftriaxone. On low dose po Prednisone for gout tx A. fib, chronic Continue metoprolol at lower dose with hold parameters Xarelto on hold for potential preop situation Monitor telemetry Hypertension Overall BP controlled Continue to monitor Hypokalemia resolved s/p repletion monitor K as indicated Dementia with behavioral disturbances, chronic Supportive care Continue baseline management Dysphagia Patient failed swallow eval, continue NPO Continue with ST on D5W DVT prophylaxis SCDs Code Status: FULL Discussed Condition With: patient, nursing staff, Dr. Foreman Discharge Planning: Not ready for discharge. Discharge pending clinical improvement, Nephrology, ID and Hand sx clearance. Code Status: FULL CODE Discussed Condition With: PT AND RN AND CM Discharge Planning: ONCE CLEARED BY ALL FOR DISCHARGE (1) Osteomyelitis Qualifiers: Osteomyelitis type: unspecified type Osteomyelitis location: other site Qualified Code(s): M86.9 - Osteomyelitis, unspecified
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
[2017-12-05] MEDS: Potassium Chloride Inj 20 MEQ in Dextrose 5% in Water Inj 1,000 ML IV.CONT SCH ×2 (15:15)
[2017-12-06] MEDS: Potassium Chloride Inj 20 MEQ in Dextrose 5% in Water Inj 1,000 ML IV.CONT SCH ×2 (05:10)
[2017-12-06 06:22] LABS: Baso # (Auto) 0.3 th/mm3 (0.0-0.2); Baso % (Auto) 3.3 % (0.0-2.0); Eos # (Auto) 0.5 th/mm3 (0.0-0.4); Eos % (Auto) 5.2 % (0.0-4.0); Hematocrit 33.2 % (39.0-51.0); Lymph # (Auto) 1.4 th/mm3 (1.0-4.8); Lymph % (Auto) 13.5 % (9.0-44.0); Mean Corpuscular HGB Conc 33.2 % (32.0-36.0); Mean Corpuscular Hemoglobin 30.5 pg (27.0-34.0); Mean Corpuscular Volume 91.8 fL (80.0-100.0); Mono # (Auto) 1.2 th/mm3 (0.0-0.9); Neut # (Auto) 6.9 th/mm3 (1.8-7.7); Platelet Count 333 th/mm3 (150-450); Red Blood Count 3.62 mil/mm3 (4.50-5.90); Red Cell Distribution Width 16.5 % (11.6-17.2); White Blood Count 10.4 th/mm3 (4.0-11.0)
[2017-12-06 07:11] LABS: Alanine Aminotransferase 22 U/L (12-78); Albumin 2.6 g/dL (3.4-5.0); Anion Gap 14 meq/L (5-15); Blood Urea Nitrogen 32 mg/dL (7-18); Calcium 8.3 mg/dL (8.5-10.1); Carbon Dioxide 20.9 meq/L (21.0-32.0); Chloride 117 meq/L (98-107); Glomerular Filtration Rate 22 mL/min (>89); Glucose,Random 89 mg/dL (74-106); Magnesium 2.4 mg/dL (1.5-2.5); Phosphorus 3.1 mg/dL (2.5-4.9); Potassium 3.6 meq/L (3.5-5.1); Sodium 152 meq/L (136-145)
[2017-12-06 07:17] LABS: Alkaline Phosphatase 59 U/L (45-117); Aspartate Aminotransferase 25 U/L (15-37); Total Protein 6.1 g/dL (6.4-8.2)
--- NOTE | 2017-12-06 09:31 | P.PNIM ---
Subjective Interval history: Pt seen and examined for f/u L index finger osteomyelitis, severe dementia, failed swallow eval. D/w RN. No acute events or changes in patient status. AFVSS. Patient remains confused. Physical Exam Vital signs: Vital Signs 12/05/17 12:00 12/05/17 20:30 12/06/17 00:45 Temperature 98.2 F 98 F 97.7 F Pulse Rate 69 72 76 Respiratory Rate 18 18 19 Blood Pressure 137/57 L 142/67 H 140/65 Pulse Oximetry 97 98 97 12/06/17 04:15 Temperature 98 F Pulse Rate 68 Respiratory Rate 19 Blood Pressure 138/68 Pulse Oximetry 98 Intake & Output 12/05/17 12/06/17 12/06/17 18:59 06:59 18:59 Intake Total 750 / 750 0 / 0 Balance 750 / 750 0 / 0 Weight 91 kg Intake: IV 750 / 750 KCl Inj 20 MEQ In D5W Inj 1,000 300 / 300 ML @ 50 mls/hr IV.CONT . [id number] [facility] Rx#:[id number] LR 1000 mL Inj 1,000 ML @ 30 350 / 350 mls/hr IV.SIG .Q24H [facility] Rx#: [id number] Rocephin Inj 2,000 MG In NS Inj 100 / 100 100 ML @ 200 mls/hr IV.SIG Q24H [facility] Rx#:[id number] Oral 0 / 0 0 / 0 Other: # Voids 2 # Incontinent Voids 8 Date of Last Bowel Movement 12/04/17 12/04/17 # Incontinent Bowel Movements 0 Narrative: GENERAL: Elderly male resting in bed in [facility]. SKIN: Warm and dry. Pacemaker left upper chest, no overlying erythema. HEART: RRR no m/r/g. LUNGS: CTAB without wheezes or crackles. ABDOMEN: +BS, soft, NT, ND. EXTREMITIES: No LE edema. L index finger with sutures in place and some surrounding swelling. No significant erythema. No drainage. NEURO: Awake but confused. - Urinary Catheter Management Indwelling Urethral Catheter Cath placed during this visit: yes Reason for continuing: Hourly intake/output Insertion date: 11/29/17 Results - Labs CBC & Chem 7: 12/06/17 05:32 12/06/17 05:32 Laboratory Results - last 24 hr 12/06/17 12/06/17 05:32 05:32 WBC 10.4 RBC 3.62 L Hgb 11.0 L Hct 33.2 L MCV 91.8 MCH 30.5 MCHC 33.2 RDW 16.5 Plt Count 333 D MPV 9.0 Neut % (Auto) 66.0 Lymph % (Auto) 13.5 [place] % (Auto) 12.0 H Eos % (Auto) 5.2 H Baso % (Auto) 3.3 H Neut # (Auto) 6.9 Lymph # (Auto) 1.4 [place] # (Auto) 1.2 H Eos # (Auto) 0.5 H Baso # (Auto) 0.3 H WBC Differential . Differential Comment Auto diff final Sodium 152 H Potassium 3.6 Chloride 117 H Carbon Dioxide 20.9 L Anion Gap 14 BUN 32 H Creatinine 2.79 H Estimated GFR 22 L Random Glucose 89 Calcium 8.3 L Phosphorus 3.1 Magnesium 2.4 Total Bilirubin 0.2 AST 25 ALT 22 Alkaline Phosphatase 59 Total Protein 6.1 L D Albumin 2.6 L - Procedures 11/27: I&D of abscess L index finger DIP joint, debridement of L index finger DIP joint 12/04: irrigation and debridement left index finger with secondary closure Assessment and Plan - Assessment (1) Osteomyelitis Code(s): M86.9 - Osteomyelitis, unspecified Status: Acute (2) NANCY (acute kidney injury) Code(s): N17.9 - Acute kidney failure, unspecified Status: Acute (3) Hypokalemia Code(s): E87.6 - Hypokalemia Status: Acute - Plan 87-year-old male with a history of dementia and A. fib admitted on 11/25 for left index finger infection despite outpatient antibiotic treatment with Augmentin and Acyclovir. He had an outpatient x-ray that showed possible osteomyelitis therefore was sent in for further evaluation. 1. L index finger osteomyelitis - XR with findings c/w osteomyelitis with bony destruction DIP joint second digit - S/P operative debridement on 11/27 and 12/04 with hand surgery - ID following, on Rocephin - Cultures negative - Evidence of gout on path, uric acid WNL 2. Acute renal failure - Creatinine jumped from 0.86 to 2.25 within two days - Up to 3.32 at the peak - Improving with IV fluids and discontinuation of offending agents - Nephrology consulted, appreciate assistance - Renal U/S showed abnormal bladder appearance but no obstruction - Likely multifactorial given offending agents such as vanco, possible pre- renal azotemia/possible ATN, as well as interstitial nephritis since urine with + eosinophils - Avoid nephrotoxic agents - Monitor renal function 3. Hypernatremia - Sodium up to 152 today, up from 145 yesterday - Per RN, patient was reportedly receiving NS - Change IVF to D5W - Recheck BMP this afternoon at 1300 and adjust fluids as needed 4. Atrial fibrillation - Rate-controlled - Pacemaker in place - Metoprolol held as patient failed swallow eval 5. Advanced dementia - Chronic and in a long-term care facility - Failed swallow test and has been NPO now for several days - Holding PO meds - Repeat swallow eval - Consult palliative care to aid with end-of-life decision making with family, possible PEG placement vs. hospice - Continue IV fluids 6. 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 Case management assisting. Palliative consulted today to clarify end-of-life goals with family now that patient is NPO. (1) Osteomyelitis Qualifiers: Osteomyelitis type: unspecified type Osteomyelitis location: other site Qualified Code(s): M86.9 - Osteomyelitis, unspecified
[2017-12-06] MEDS: Dextrose 5% in Water Inj 1,000 ML IV.CONT SCH (10:40)
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
[2017-12-06 18:44] LABS: Calcium 8.2 mg/dL (8.5-10.1); Carbon Dioxide 21.8 meq/L (21.0-32.0); Potassium 3.6 meq/L (3.5-5.1)
[2017-12-07] MEDS: Dextrose 5% in Water Inj 1,000 ML IV.CONT SCH ×2 (05:31→05:51)
[2017-12-07 06:34] LABS: Calcium 8.3 mg/dL (8.5-10.1); Carbon Dioxide 22.9 meq/L (21.0-32.0); Potassium 3.3 meq/L (3.5-5.1)
[2017-12-07] MEDS ORDERED: Potassium Bicarbonate 25 MEQ Effervescent Tablet PO ONE (09:05)
--- NOTE | 2017-12-07 09:12 | P.PNIM ---
Subjective Interval history: Pt seen and examined. Remains confused. NPO for failed swallow eval x 3. Sodium going up slightly to 153. No events per RN. Physical Exam Vital signs: Vital Signs 12/06/17 12:00 12/06/17 16:00 12/06/17 20:00 Temperature 97.9 F 97.5 F L Pulse Rate 69 70 69 Respiratory Rate 18 18 Blood Pressure 166/72 H 170/70 H Pulse Oximetry 97 98 12/06/17 21:40 12/07/17 00:00 12/07/17 00:45 Temperature 98 F 97.5 F L Pulse Rate 64 74 60 Respiratory Rate 17 20 Blood Pressure 119/67 129/69 Pulse Oximetry 98 96 12/07/17 05:45 12/07/17 08:00 Temperature 98 F 97.7 F Pulse Rate 64 74 Respiratory Rate 19 18 Blood Pressure 115/63 186/75 H Pulse Oximetry 96 95 Intake & Output 12/06/17 12/07/17 12/07/17 18:59 06:59 18:59 Intake Total 100 / 100 1000 / 1000 Output Total 300 / 300 Balance 100 / 100 700 / 700 Weight 91 kg Intake: IV 100 / 100 1000 / 1000 D5W Inj 1,000 ML @ 84 mls/hr IV 1000 / 1000 .CONT .[id number] [facility] Rx#:[id number] Rocephin Inj 2,000 MG In NS Inj 100 / 100 100 ML @ 200 mls/hr IV.SIG Q24H [facility] Rx#:[id number] Oral 0 / 0 Output: Urine 300 / 300 Other: # Voids 3 # Incontinent Voids 4 Date of Last Bowel Movement 12/04/17 12/05/17 12/06/17 # Bowel Movements 1 0 # Incontinent Bowel Movements 0 Narrative: GENERAL: Elderly male resting in bed in [facility]. SKIN: Warm and dry. Pacemaker left upper chest, no overlying erythema. HEART: RRR no m/r/g. LUNGS: CTAB without wheezes or crackles. ABDOMEN: +BS, soft, NT, ND. EXTREMITIES: No LE edema. L index finger with sutures in place and some surrounding swelling. No significant erythema. No drainage. NEURO: Awake but confused. - Urinary Catheter Management Indwelling Urethral Catheter Cath placed during this visit: yes Reason for continuing: Hourly intake/output Insertion date: 11/29/17 Results - Labs CBC & Chem 7: 12/06/17 05:32 12/07/17 03:59 Laboratory Results - last 24 hr 12/06/17 12/07/17 17:50 03:59 Sodium 151 H 153 H Potassium 3.6 3.3 L Chloride 119 H 117 H Carbon Dioxide 21.8 22.9 Anion Gap 10 13 BUN 32 H 28 H Creatinine 2.67 H 2.62 H Estimated GFR 23 L 23 L Random Glucose 111 H 85 Calcium 8.2 L 8.3 L - Procedures 11/27: I&D of abscess L index finger DIP joint, debridement of L index finger DIP joint 12/04: irrigation and debridement left index finger with secondary closure Assessment and Plan - Assessment (1) Osteomyelitis Code(s): M86.9 - Osteomyelitis, unspecified Status: Acute (2) NANCY (acute kidney injury) Code(s): N17.9 - Acute kidney failure, unspecified Status: Acute (3) Hypokalemia Code(s): E87.6 - Hypokalemia Status: Acute - Plan 87-year-old male with a history of dementia and A. fib admitted on 11/25 for left index finger infection despite outpatient antibiotic treatment with Augmentin and Acyclovir. He had an outpatient x-ray that showed possible osteomyelitis therefore was sent in for further evaluation. 12/07: Palliative care evaluated patient and spoke extensively to family who have decided to send the patient back to the SNF with hospice. D/W Dr. Thomas as well. Since NPO will not send on any antibiotics. 1. L index finger osteomyelitis - XR with findings c/w osteomyelitis with bony destruction DIP joint second digit - S/P operative debridement on 11/27 and 12/04 with hand surgery - ID following, on Rocephin - Cultures negative - Evidence of gout on path, uric acid WNL 2. Acute renal failure - Creatinine jumped from 0.86 to 2.25 within two days - Up to 3.32 at the peak - Improving with IV fluids and discontinuation of offending agents - Nephrology consulted, appreciate assistance - Renal U/S showed abnormal bladder appearance but no obstruction - Likely multifactorial given offending agents such as vanco, possible pre- renal azotemia/possible ATN, as well as interstitial nephritis since urine with + eosinophils - Avoid nephrotoxic agents - Monitor renal function 3. Hypernatremia - Sodium continues to be elevated, 153 this AM despite changing to D5W yesterday - Will increase rate of fluids to 100 ml/hr - Recheck BMP this afternoon at 1300 and adjust fluids as needed 4. Hypokalemia - Add KCl 20 meq to D5W at 100 ml/hr 5. Atrial fibrillation - Rate-controlled - Pacemaker in place - Metoprolol held as patient failed swallow eval 6. Advanced dementia - Chronic and in a long-term care facility - Failed swallow test and has been NPO now for several days - Holding PO meds - Repeat swallow eval still recommending NPO - Consulted palliative care - Continue IV fluids 7. HTN - Overall BPs controlled despite PO meds being held since patient NPO - Continue to monitor DVT prophylaxis: Heparin, SCDs Discharge Planning: D/C back to SNF today with hospice (1) Osteomyelitis Qualifiers: Osteomyelitis type: unspecified type Osteomyelitis location: other site Qualified Code(s): M86.9 - Osteomyelitis, unspecified
[2017-12-07] MEDS: KCL 20 mEq/Dextrose 5% Inj 1,000 ML IV.CONT SCH ×2 (10:00→19:47)
--- NOTE | 2017-12-07 10:21 | P.PNNP ---
Subjective Interval history: He is NPO, failed swallow. Confused. RN reports family has chosen hospice. <Arlene HardingAlcides - Last Filed: 12/07/17 10:19> Physical Exam Vital signs: Vital Signs 12/06/17 12:00 12/06/17 16:00 12/06/17 20:00 Temperature 97.9 F 97.5 F L Pulse Rate 69 70 69 Respiratory Rate 18 18 Blood Pressure 166/72 H 170/70 H Pulse Oximetry 97 98 12/06/17 21:40 12/07/17 00:00 12/07/17 00:45 Temperature 98 F 97.5 F L Pulse Rate 64 74 60 Respiratory Rate 17 20 Blood Pressure 119/67 129/69 Pulse Oximetry 98 96 12/07/17 05:45 12/07/17 08:00 Temperature 98 F 97.7 F Pulse Rate 64 74 Respiratory Rate 19 18 Blood Pressure 115/63 186/75 H Pulse Oximetry 96 95 Intake & Output 12/06/17 12/07/17 12/07/17 18:59 06:59 18:59 Intake Total 100 / 100 1000 / 1000 100 / 100 Output Total 300 / 300 Balance 100 / 100 700 / 700 100 / 100 Weight 91 kg Intake: IV 100 / 100 1000 / 1000 100 / 100 D5W Inj 1,000 ML @ 84 mls/hr IV 1000 / 1000 .CONT .[id number] [facility] Rx#:[id number] Rocephin Inj 2,000 MG In NS Inj 100 / 100 100 / 100 100 ML @ 200 mls/hr IV.SIG Q24H [facility] Rx#:[id number] Oral 0 / 0 Output: Urine 300 / 300 Other: # Voids 3 # Incontinent Voids 4 Date of Last Bowel Movement 12/04/17 12/05/17 12/06/17 # Bowel Movements 1 0 # Incontinent Bowel Movements 0 - Constitutional no acute distress, disheveled - Routine Neck Exam Present: supple, full ROM - Routine Respiratory Exam Present: CTA bilaterally. Absent: accessory muscle use - Routine Cardiovascular Exam Present: RRR, S1, S2 - Routine Abdominal Exam Present: soft - Routine Extremities Exam Present: full ROM. Absent: edema - Routine Skin Exam Present: dry, warm Comments: left index finger wound - Routine Neurological Exam Present: alert, moving all extremities - Detailed Neurological Exam: Coma Scale Eye Opening: Spontaneous Verbal Response: Confused Motor Response: Localizing Jon Coma Scale Total: 13 - Routine Psychiatric Exam Present: unable to assess - Urinary Catheter Management Indwelling Urethral Catheter Cath placed during this visit: yes Reason for continuing: Hourly intake/output Insertion date: 11/29/17 <Arlene Harding - Last Filed: 12/07/17 10:19> Vital signs: Vital Signs 12/06/17 12:00 12/06/17 16:00 12/06/17 20:00 Temperature 97.9 F 97.5 F L Pulse Rate 69 70 69 Respiratory Rate 18 18 Blood Pressure 166/72 H 170/70 H Pulse Oximetry 97 98 12/06/17 21:40 12/07/17 00:00 12/07/17 00:45 Temperature 98 F 97.5 F L Pulse Rate 64 74 60 Respiratory Rate 17 20 Blood Pressure 119/67 129/69 Pulse Oximetry 98 96 12/07/17 05:45 12/07/17 08:00 Temperature 98 F 97.7 F Pulse Rate 64 74 Respiratory Rate 19 18 Blood Pressure 115/63 186/75 H Pulse Oximetry 96 95 Intake & Output 12/06/17 12/07/17 12/07/17 18:59 06:59 18:59 Intake Total 100 / 100 1000 / 1000 100 / 100 Output Total 300 / 300 Balance 100 / 100 700 / 700 100 / 100 Weight 91 kg Intake: IV 100 / 100 1000 / 1000 100 / 100 D5W Inj 1,000 ML @ 84 mls/hr IV 1000 / 1000 .CONT .[id number] [facility] Rx#:[id number] Rocephin Inj 2,000 MG In NS Inj 100 / 100 100 / 100 100 ML @ 200 mls/hr IV.SIG Q24H [facility] Rx#:[id number] Oral 0 / 0 Output: Urine 300 / 300 Other: # Voids 3 # Incontinent Voids 4 Date of Last Bowel Movement 12/04/17 12/05/17 12/06/17 # Bowel Movements 1 0 # Incontinent Bowel Movements 0 - Urinary Catheter Management Indwelling Urethral Catheter Cath placed during this visit: no <Isaias Cruz - Last Filed: 12/07/17 11:51> Assessment and Plan - Assessment (1) NANCY (acute kidney injury) Code(s): N17.9 - Acute kidney failure, unspecified Status: Acute Plan: Baseline creatinine 0.8. NANCY due to vancomycin induced renal injury, prerenal azotemia, or AIN. Possible ATN. Renal function is stable. IVF: D5W with 20 mEq KCL @ 1000cc/hr. He is non oliguric, incontinent most of the time. Pulls off condom catheter. Avoid nephrotoxic agents Obtain daily labs. (2) Hypokalemia Code(s): E87.6 - Hypokalemia Status: Acute Plan: Replaced in IVF. (3) Osteomyelitis Code(s): M86.9 - Osteomyelitis, unspecified Status: Acute Plan: ID and ortho following s/P I&D, surgery on 12/04. On Rocephin and PO Flagyl,. <Arlene Harding - Last Filed: 12/07/17 10:19> - Assessment (1) NANCY (acute kidney injury) Code(s): N17.9 - Acute kidney failure, unspecified Status: Acute (2) Hypokalemia Code(s): E87.6 - Hypokalemia Status: Acute (3) Osteomyelitis Code(s): M86.9 - Osteomyelitis, unspecified Status: Acute Qualifiers: Osteomyelitis type: unspecified type Osteomyelitis location: other site Qualified Code(s): M86.9 - Osteomyelitis, unspecified - Attending Attestation patient was seen and examined. Creatinine is slightly better, he has significant hypernatremia. Continue hypotonic fluids. Prognosis is poor. Family has met with palliative care, may opt for hospice. <Isaias Cruz - Last Filed: 12/07/17 11:51>
--- NOTE | 2017-12-07 11:00 | P.CONPAL ---
Consult Service: Palliative Care Requesting Physician: Evangelina King Reason for Consult: a. To assist with evaluation and management of symptoms including:anxiety, pain b. To assist medical decision maker(s) with: better understanding of current medical conditions; weighing benefits/burdens of medical treatment options; making medical treatment decisions. Primary Care Provider: UNKNOWN History of Present Illness History of Present Illness: Patient is a 87-year-old past medical history significant for dementia and A. fib came in for a swollen left index finger. Patient is a assisted resident , and is reported that patient has had a swollen failure in 12 days. Patient was treated with Augmentin and acyclovir but unfortunately finger continued to worsen. Patient had an x-ray done as outpatient, for possible osteomyelitis and was subsequently sent to the hospital on 11/25/2017. In the ER: * Temperature is 97.6, pulse is 70, respirations 18, blood pressure is 111/60, pulse ox is 97% on room air * WBCs 9.2, hemoglobin is 12.8, hematocrit 39.1, platelets 265. * Sodium is 145, potassium is 3.6, chloride is 113, BUN is 34, creatinine is 2.98 * Albumin is 2.4 * PH is 7.45, PCO2 is 28, * X-ray of the finger. Left hand second digit, consistent with osteoarthritis DIP joint with bony destruction. There are degenerative changes in the third fourth and fifth phalanges. Findings are consistent with osteomyelitis with bony destruction on the DIP joint consistent with osteomyelitis. Patient was admitted and care was transferred to hospitalist. Patient given IV antibiotics, vancomycin and Zosyn. They were unable to get an MRI due to pacemaker. == Subsequently had surgery was consulted. Patient's pain was managed with p.o. [place]. Antibiotics was continued. Hand surgeon discuss with power of district attorney who gave verbal consent to incision and drainage. On 11/27/2017 incision and drainage of abscess left index finger DIP joint, debridement of distal interphalangeal joint, and fluoroscopy. The joint was debrided. And infectious disease was consulted by hand surgery. ==11/28 infectious disease evaluated patient and there is new concern about underlying infection and possible need for amputation. Patient's is also concerned will not be compliant with IV PICC line as he sometimes gets agitated. ==11/29-nephrology was consulted for renal failure. Patient had been on acyclovir and Augmentin for 10 days and currently on vancomycin. Patient has also been hypotensive. Nephrology ordered a renal ultrasound. Bumex was held. IV fluids continue to be given. Potassium p.o. was ordered. Nephrology continued to follow == 11/30 to 12/03-patient has agitation and was given how on restraints. Renal ultrasound shows abnormal bladder but no obstruction. Creatinine has been monitored gradually trending downwards. Patient continued to get IV antibiotic ==12/04 to 12/06-patient condition further complicated by his failed swallow eval. continue to have renal insufficiency Cr 2.62 (trending down) with renal following. Has hyper natremia. Pt continue to be on Rocephin. On steroids for gout. Cultures had been negative. In summary: 87-year-old with a significant history of dementia and A. fib, gout has left second digit DIP osteomyelitis. Condition has been complicated by renal failure (etiology likely multifactorial antibiotics, hypotension), agitation, failed swallow eval, renal failure. Palliative care consulted to reivew goals of care. Patient on my visit was verbal, declined pain, confused, does not know where he is. I spoke with patient's /health care surrogate. He endorse pt had been declining, worsening memory, and had intances of dyspnea/ pneumonia type of symptom, frail, and general poor quality of life. She endorse that patient has a living will and which made it clear he does not want artifical nurtrition or life support. We reviewed pt's labs, current likely condition, his renal failure, risk for aspiration, agitation. She is amenable to hospice consultation, and goal of care is for him to go back to his nursing facility. She is amenable to honor pt's signed DNR. Function/Cognitive Trajectory: Has been declining, may have had episode of aspiration a few months ago. Frail, worsening memory. Review of Systems Constitutional: Reports fatigue, Reports weakness Ears, Nose, Mouth, and Throat: Denies abnormal hearing, Denies bleeding gums, Denies ear discharge, Denies facial pain, Denies headache(s), Denies hearing loss, Denies mouth pain, Denies nasal congestion Cardiovascular: Denies chest pain, Denies chest pain at rest, Denies chest pain with activity, Denies excessive sweating, Denies shortness of breath with activity Respiratory: Reports shortness of breath (a few months ago) Gastrointestinal: Denies abdominal pain, Denies belching, Denies black, tarry stools, Denies bloating Genitourinary: Denies blood in semen, Denies blood in urine, Denies decreased urination, Denies difficulty urinating Musculoskeletal: Reports joint pain Neurologic: Reports confusion, Reports memory loss (agitiation) Psychiatric: Reports anxiety (can be anxious at times.) [facility] - History History Provided By: Patient, Family Member - Medical History Medical History: Medical History (Last Updated 12/07/17 @ 16:46 by Hawk Salvador MD) Alcohol abuse (Acute) Atrial flutter Dementia Family history unobtainable Pacemaker - Surgical History Surgical History: Surgical History (Last Reviewed 12/02/17 @ 09:53 by Colleen Ball) Surgical history unknown - Family History Family History: Family History (Last Updated 12/07/17 @ 16:47 by Hawk Salvador MD) Father Alcohol abuse Other Family history unknown - Tobacco History Second Hand Smoke Exposure: No Tobacco Use In Past 30 Days: No Smoking Status: Former smoker - Alcohol History How Often Do You Have a Drink Containing Alcohol: 4 or more times a week (In the past pt has had etoh abuse, not drinking etoh any longer.) - Substance Use History Substance History: No History of Abuse - Travel History Recent Travel in the [place] Within the Last 8 Weeks: No Recent Travel Out of the Country Within the Last 8 Weeks: No - Immunization History Tetanus Immunization: Unsure Hx Influenza Vaccine This Season: No Medications and Allergies Active Medications: Active Medications Acetaminophen (Tylenol) 650 mg PO Q4H PRN PRN Reason: Temp > 100.4 Hydrocodone Bitart/Acetaminophen ([place] 5/325) 1 tab PO Q6H PRN PRN Reason: PAIN SCALE 1 TO 10 Bumetanide (Bumex) 4 mg PO DAILY [facility] Last Admin: 11/28/17 09:46 Dose: 4 mg Donepezil HCl (Aricept) 10 mg PO DAILY [facility] Last Admin: 12/04/17 10:11 Dose: Not Given Folic Acid (Folic Acid) 1 mg PO DAILY [facility] Last Admin: 12/04/17 10:10 Dose: Not Given Haloperidol (Haldol) 1 mg PO DAILY [facility] Last Admin: 12/03/17 10:28 Dose: Not Given Heparin Sodium (Porcine) (Heparin Inj) 5,000 units SQ Q12HR [facility] Last Admin: 12/03/17 22:16 Dose: 5,000 units Ceftriaxone Sodium 2,000 mg/ (Sodium Chloride) 100 mls @ 200 mls/hr IV.SIG Q24H [facility] Last Infusion: 12/07/17 09:56 Dose: Infused Potassium Chloride/Dextrose (D5w + Kcl 20 Meq Inj) 1,000 mls @ 100 mls/hr IV.CONT .Q10H [facility] Last Admin: 12/07/17 10:00 Dose: 100 mls/hr Metoprolol Tartrate (Lopressor) 12.5 mg PO BID [facility] Last Admin: 12/04/17 10:09 Dose: 12.5 mg Miscellaneous (Pill Splitter) 1 each OTHER UNSCH [facility] Ondansetron HCl (Zofran Inj) 4 mg IV.PUSH Q6H PRN PRN Reason: NAUSEA OR VOMITING Prednisone (Deltasone) 10 mg PO DAILY [facility] Last Admin: 12/04/17 10:10 Dose: 10 mg Allergies Allergy/AdvReac Type Severity Reaction Status Date / Time No Known Allergies Allergy Verified 11/25/17 19:35 Home Medications Medication Instructions Recorded Confirmed Type acyclovir 400 mg PO TID 11/25/17 11/25/17 History amoxicillin-pot clavulanate 1 tab PO BID 11/25/17 11/25/17 History [Augmentin] aspirin 81 mg PO DAILY 11/25/17 11/25/17 History bumetanide 4 mg PO DAILY 11/25/17 11/25/17 History donepezil 10 mg PO DAILY 11/25/17 11/25/17 History folic acid 1 mg PO DAILY 11/25/17 11/25/17 History haloperidol 1 mg PO DAILY 11/25/17 11/25/17 History hydrocodone-acetaminophen [[place]] 1 tab PO BID 11/25/17 11/25/17 History hydrocodone-acetaminophen [[place]] 1 tab PO Q6H PRN 11/25/17 11/25/17 History metoprolol tartrate 25 mg PO BID 11/25/17 11/25/17 History rivaroxaban [Xarelto] 20 mg PO DAILY 11/25/17 11/25/17 History Advance Directives Living Will: Yes Healthcare Surrogate: Yes Power of Forms Examiner Relationship to Patient: Spouse Physical Exam Vital Signs: Vital Signs - 24 hr 12/06/17 12:00 12/06/17 16:00 12/06/17 20:00 Temperature 97.9 F 97.5 F L Pulse Rate 69 70 69 Respiratory Rate 18 18 Blood Pressure 166/72 H 170/70 H Pulse Oximetry 97 98 12/06/17 21:40 12/07/17 00:00 12/07/17 00:45 Temperature 98 F 97.5 F L Pulse Rate 64 74 60 Respiratory Rate 17 20 Blood Pressure 119/67 129/69 Pulse Oximetry 98 96 12/07/17 05:45 12/07/17 08:00 Temperature 98 F 97.7 F Pulse Rate 64 74 Respiratory Rate 19 18 Blood Pressure 115/63 186/75 H Pulse Oximetry 96 95 I&O: Intake & Output 12/05/17 12/06/17 12/07/17 12/08/17 06:59 06:59 06:59 06:59 Intake Total 2510 / 2510 750 / 750 1100 / 1100 100 / 100 Output Total 0 / 0 300 / 300 Balance 2510 / 2510 750 / 750 800 / 800 100 / 100 Weight 91 kg 91 kg 91 kg Physical Exam: CONSTITUTIONAL/GENERAL: This is an frail elderly gentlemen, easily awaken, but mostly sleeping. SKIN: No jaundice, rashes, or lesions. Ecchymoses on upper extremities. No wounds seen anteriorly. Skin temperature appropriate. Not diaphoretic. HEAD: Atraumatic. Normocephalic. EYES: Pupils equal and round and reactive. Extraocular motions intact. No scleral icterus. No injection or drainage. Fundi not examined. ENT: Hearing grossly normal. Nose without bleeding or purulent drainage. Throat without visible erythema, exudates, masses, or lesions. NECK: Trachea midline. Supple, nontender. No palpable thyroid enlargement or nodularity. CARDIOVASCULAR: No murmurs, gallops, or rubs. No JVD. Peripheral pulses symmetric. RESPIRATORY/CHEST:Tachycardic, Symmetric, unlabored respirations. Clear to auscultation. Breath sounds equal bilaterally. No wheezes, rales, or rhonchi. GASTROINTESTINAL: Abdomen soft, non-tender, nondistended. No hepato-splenomegaly , or palpable masses. No guarding. Bowel sounds present. GENITOURINARY: Without palpable bladder distension. Curiel catheter in place. MUSCULOSKELETAL: Extremities without clubbing, cyanosis, or edema. Left 2nd digit DIP joint, some edema swelling, dressing in place LYMPHATICS: No palpable cervical or supraclavicular adenopathy. NEUROLOGICAL: Awake and alert. confused, could not follow commands. Diagnostic Tests Laboratory: Laboratory Results - last 72 hr 12/06/17 12/06/17 12/06/17 05:32 05:32 17:50 WBC 10.4 RBC 3.62 L Hgb 11.0 L Hct 33.2 L MCV 91.8 MCH 30.5 MCHC 33.2 RDW 16.5 Plt Count 333 D MPV 9.0 Neut % (Auto) 66.0 Lymph % (Auto) 13.5 Alpine % (Auto) 12.0 H Eos % (Auto) 5.2 H Baso % (Auto) 3.3 H Neut # (Auto) 6.9 Lymph # (Auto) 1.4 Alpine # (Auto) 1.2 H Eos # (Auto) 0.5 H Baso # (Auto) 0.3 H WBC Differential . Differential Comment Auto diff final Sodium 152 H 151 H Potassium 3.6 3.6 Chloride 117 H 119 H Carbon Dioxide 20.9 L 21.8 Anion Gap 14 10 BUN 32 H 32 H Creatinine 2.79 H 2.67 H Estimated GFR 22 L 23 L Random Glucose 89 111 H Calcium 8.3 L 8.2 L Phosphorus 3.1 Magnesium 2.4 Total Bilirubin 0.2 AST 25 ALT 22 Alkaline Phosphatase 59 Total Protein 6.1 L D Albumin 2.6 L 12/07/17 03:59 WBC RBC Hgb Hct MCV MCH MCHC RDW Plt Count MPV Neut % (Auto) Lymph % (Auto) Alpine % (Auto) Eos % (Auto) Baso % (Auto) Neut # (Auto) Lymph # (Auto) Al[place] # (Auto) Eos # (Auto) Baso # (Auto) WBC Differential Differential Comment Sodium 153 H Potassium 3.3 L Chloride 117 H Carbon Dioxide 22.9 Anion Gap 13 BUN 28 H Creatinine 2.62 H Estimated GFR 23 L Random Glucose 85 Calcium 8.3 L Phosphorus Magnesium Total Bilirubin AST ALT Alkaline Phosphatase Total Protein Albumin Result Diagrams: 12/06/17 05:32 12/07/17 03:59 Microbiology: Microbiology 11/27/17 20:59 Fungal Smear - Final Wound - Finger No fungal elements seen Fungal Culture - Preliminary No growth in 1 week 11/27/17 20:59 Acid Fast Bacilli Smear - Final Wound - Finger No acid fast bacilli seen Mycobacterial Culture - Preliminary No growth in 1 week Imaging: Laboratory Tests 11/25/17 11/25/17 11/25/17 20:14 20:14 20:14 WBC 9.2 RBC 4.30 L Hgb 12.8 L Hct 39.1 MCV 91.0 MCH 29.8 MCHC 32.7 RDW 15.4 Plt Count 265 MPV 8.5 Neut % (Auto) 55.4 Lymph % (Auto) 26.0 Alpine % (Auto) 10.3 H Eos % (Auto) 6.9 H Baso % (Auto) 1.4 Neut # (Auto) 5.1 Lymph # (Auto) 2.4 Alpine # (Auto) 0.9 Eos # (Auto) 0.6 H Baso # (Auto) 0.1 WBC Differential . Differential Comment Auto diff final ESR Puncture Site Patient Temperature O2 Saturation ABG pH ABG pCO2 ABG pO2 ABG HCO3 ABG O2 Content ABG Base Excess ABG Methemoglobin Bill Test Hemoglobin Carboxyhemoglobin O2 Delivery Device Inspired O2 Critical Value Sodium 141 Potassium 3.9 Chloride 103 Carbon Dioxide 31.8 Anion Gap 6 BUN 21 H Creatinine 1.18 Estimated GFR 59 L Random Glucose 92 Lactic Acid 1.4 Uric Acid Calcium 8.6 Phosphorus Magnesium Total Bilirubin 0.3 AST 13 L ALT 18 Alkaline Phosphatase 69 Ammonia Total Creatine Kinase C-Reactive Protein Less than 0.29 Total Protein 7.2 Albumin 3.3 L TSH Free T4 Urine Color Urine Clarity Urine pH Ur Specific [place] Urine Protein Urine Glucose (UA) Urine Ketones Urine Occult Blood Urine Nitrate Urine Bilirubin Urine Urobilinogen Ur Leukocyte Esterase Urine RBC Urine WBC Ur Squamous Epith Cells Amorphous Sediment Micro UA Comment Ur Microscopic Review Urine Culture Comments Urine Eosinophils Ur Random Creatinine Ur Random Sodium Ur Random Uric Acid Vancomycin Trough Rheumatoid Factor Scrn Rheumatoid Factor Titer 11/25/17 11/26/17 11/26/17 20:14 06:05 06:05 WBC 6.7 RBC 3.73 L Hgb 11.2 L Hct 33.4 L MCV 89.6 MCH 30.0 MCHC 33.5 RDW 15.5 Plt Count 202 MPV 8.9 Neut % (Auto) 50.3 Lymph % (Auto) 30.6 Alpine % (Auto) 9.1 H Eos % (Auto) 8.7 H Baso % (Auto) 1.3 Neut # (Auto) 3.4 Lymph # (Auto) 2.1 Alpine # (Auto) 0.6 Eos # (Auto) 0.6 H Baso # (Auto) 0.1 WBC Differential . Differential Comment Auto diff final ESR 23 H Puncture Site Patient Temperature O2 Saturation ABG pH ABG pCO2 ABG pO2 ABG HCO3 ABG O2 Content ABG Base Excess ABG Methemoglobin Bill Test Hemoglobin Carboxyhemoglobin O2 Delivery Device Inspired O2 Critical Value Sodium 143 Potassium 3.5 Chloride 107 Carbon Dioxide 28.8 Anion Gap 7 BUN 16 Creatinine 0.88 Estimated GFR 82 L Random Glucose 80 Lactic Acid Uric Acid Calcium 8.1 L Phosphorus Magnesium Total Bilirubin AST ALT Alkaline Phosphatase Ammonia Total Creatine Kinase C-Reactive Protein Total Protein Albumin TSH Free T4 Urine Color Urine Clarity Urine pH Ur Specific [place] Urine Protein Urine Glucose (UA) Urine Ketones Urine Occult Blood Urine Nitrate Urine Bilirubin Urine Urobilinogen Ur Leukocyte Esterase Urine RBC Urine WBC Ur Squamous Epith Cells Amorphous Sediment Micro UA Comment Ur Microscopic Review Urine Culture Comments Urine Eosinophils Ur Random Creatinine Ur Random Sodium Ur Random Uric Acid Vancomycin Trough Rheumatoid Factor Scrn Rheumatoid Factor Titer 11/27/17 11/27/17 11/27/17 07:37 07:37 15:20 WBC 10.6 RBC 4.31 L Hgb 12.9 L Hct 39.4 MCV 91.3 MCH 29.8 MCHC 32.7 RDW 15.3 Plt Count 234 MPV 9.2 Neut % (Auto) 68.8 Lymph % (Auto) 17.1 [place] % (Auto) 7.8 Eos % (Auto) 5.0 H Baso % (Auto) 1.3 Neut # (Auto) 7.3 Lymph # (Auto) 1.8 [place] # (Auto) 0.8 Eos # (Auto) 0.5 H Baso # (Auto) 0.1 WBC Differential . Differential Comment Auto diff final ESR Puncture Site Patient Temperature O2 Saturation ABG pH ABG pCO2 ABG pO2 ABG HCO3 ABG O2 Content ABG Base Excess ABG Methemoglobin Bill Test Hemoglobin Carboxyhemoglobin O2 Delivery Device Inspired O2 Critical Value Sodium 144 Potassium 3.2 L Chloride 107 Carbon Dioxide 26.5 Anion Gap 11 BUN 12 Creatinine 0.86 Estimated GFR 85 L Random Glucose 81 Lactic Acid Uric Acid Cancelled 4.8 Calcium 8.6 Phosphorus 2.5 Magnesium 2.1 Total Bilirubin 0.8 AST 16 ALT 13 Alkaline Phosphatase 63 Ammonia Total Creatine Kinase C-Reactive Protein Total Protein 6.4 D Albumin 3.0 L TSH 0.739 Free T4 1.02 Urine Color Urine Clarity Urine pH Ur Specific [place] Urine Protein Urine Glucose (UA) Urine Ketones Urine Occult Blood Urine Nitrate Urine Bilirubin Urine Urobilinogen Ur Leukocyte Esterase Urine RBC Urine WBC Ur Squamous Epith Cells Amorphous Sediment Micro UA Comment Ur Microscopic Review Urine Culture Comments Urine Eosinophils Ur Random Creatinine Ur Random Sodium Ur Random Uric Acid Vancomycin Trough 21.7 H Rheumatoid Factor Scrn Rheumatoid Factor Titer 11/27/17 11/29/17 11/29/17 15:20 04:26 04:26 WBC 11.1 H RBC 3.62 L Hgb 10.9 L D Hct 33.2 L MCV 91.5 MCH 30.1 MCHC 32.9 RDW 16.0 Plt Count 191 MPV 8.9 Neut % (Auto) 70.6 H Lymph % (Auto) 14.0 Alpine % (Auto) 11.9 H Eos % (Auto) 2.2 Baso % (Auto) 1.3 Neut # (Auto) 7.8 H Lymph # (Auto) 1.5 Alpine # (Auto) 1.3 H Eos # (Auto) 0.2 Baso # (Auto) 0.1 WBC Differential . Differential Comment Auto diff final ESR Puncture Site Patient Temperature O2 Saturation ABG pH ABG pCO2 ABG pO2 ABG HCO3 ABG O2 Content ABG Base Excess ABG Methemoglobin Bill Test Hemoglobin Carboxyhemoglobin O2 Delivery Device Inspired O2 Critical Value Sodium 147 H Potassium 3.4 L Chloride 112 H Carbon Dioxide 25.9 Anion Gap 9 BUN 17 Creatinine 2.25 H Estimated GFR 28 L Random Glucose 96 Lactic Acid Uric Acid Cancelled Calcium 7.8 L D Phosphorus Magnesium Total Bilirubin 0.6 AST 16 ALT 11 L Alkaline Phosphatase 50 Ammonia Total Creatine Kinase C-Reactive Protein Total Protein 5.4 L D Albumin 2.4 L D TSH Free T4 Urine Color Urine Clarity Urine pH Ur Specific [place] Urine Protein Urine Glucose (UA) Urine Ketones Urine Occult Blood Urine Nitrate Urine Bilirubin Urine Urobilinogen Ur Leukocyte Esterase Urine RBC Urine WBC Ur Squamous Epith Cells Amorphous Sediment Micro UA Comment Ur Microscopic Review Urine Culture Comments Urine Eosinophils Ur Random Creatinine Ur Random Sodium Ur Random Uric Acid Vancomycin Trough Rheumatoid Factor Scrn Rheumatoid Factor Titer 11/29/17 11/30/17 11/30/17 15:10 04:45 04:45 WBC 13.2 H RBC 3.80 L Hgb 11.3 L Hct 34.9 L MCV 91.9 MCH 29.8 MCHC 32.4 RDW 16.2 Plt Count 165 MPV 9.8 Neut % (Auto) 69.0 Lymph % (Auto) 16.3 Alpine % (Auto) 11.6 H Eos % (Auto) 1.9 Baso % (Auto) 1.2 Neut # (Auto) 9.1 H Lymph # (Auto) 2.2 Alpine # (Auto) 1.5 H Eos # (Auto) 0.2 Baso # (Auto) 0.2 WBC Differential . Differential Comment Auto diff final ESR Puncture Site Patient Temperature O2 Saturation ABG pH ABG pCO2 ABG pO2 ABG HCO3 ABG O2 Content ABG Base Excess ABG Methemoglobin Bill Test Hemoglobin Carboxyhemoglobin O2 Delivery Device Inspired O2 Critical Value Sodium 144 Potassium 3.3 L Chloride 111 H Carbon Dioxide 24.7 Anion Gap 8 BUN 24 H Creatinine 3.25 H Estimated GFR 18 L Random Glucose 83 Lactic Acid Uric Acid 5.5 Calcium 8.0 L Phosphorus Magnesium Total Bilirubin 1.5 H AST 34 ALT 15 Alkaline Phosphatase 56 Ammonia Total Creatine Kinase C-Reactive Protein Total Protein 5.5 L Albumin 2.4 L TSH Free T4 Urine Color Urine Clarity Urine pH Ur Specific [place] Urine Protein Urine Glucose (UA) Urine Ketones Urine Occult Blood Urine Nitrate Urine Bilirubin Urine Urobilinogen Ur Leukocyte Esterase Urine RBC Urine WBC Ur Squamous Epith Cells Amorphous Sediment Micro UA Comment Ur Microscopic Review Urine Culture Comments Urine Eosinophils Ur Random Creatinine Ur Random Sodium Ur Random Uric Acid Vancomycin Trough Rheumatoid Factor Scrn Rheumatoid Factor Titer 11/30/17 12/01/17 12/02/17 04:45 09:23 05:36 WBC RBC Hgb Hct MCV MCH MCHC RDW Plt Count MPV Neut % (Auto) Lymph % (Auto) Alpine % (Auto) Eos % (Auto) Baso % (Auto) Neut # (Auto) Lymph # (Auto) Al[place] # (Auto) Eos # (Auto) Baso # (Auto) WBC Differential Differential Comment ESR Puncture Site Patient Temperature O2 Saturation ABG pH ABG pCO2 ABG pO2 ABG HCO3 ABG O2 Content ABG Base Excess ABG Methemoglobin Bill Test Hemoglobin Carboxyhemoglobin O2 Delivery Device Inspired O2 Critical Value Sodium 144 145 Potassium 3.6 3.6 Chloride 111 H 113 H Carbon Dioxide 21.2 19.3 L Anion Gap 12 13 BUN 27 H 29 H Creatinine 3.29 H 3.32 H Estimated GFR 18 L 18 L Random Glucose 98 91 Lactic Acid Uric Acid 5.7 Calcium 7.9 L 8.1 L Phosphorus 2.3 L 3.0 Magnesium Total Bilirubin AST ALT Alkaline Phosphatase Ammonia Total Creatine Kinase C-Reactive Protein 5.71 H Total Protein Albumin 2.4 L 2.5 L TSH Free T4 Urine Color Urine Clarity Urine pH Ur Specific [place] Urine Protein Urine Glucose (UA) Urine Ketones Urine Occult Blood Urine Nitrate Urine Bilirubin Urine Urobilinogen Ur Leukocyte Esterase Urine RBC Urine WBC Ur Squamous Epith Cells Amorphous Sediment Micro UA Comment Ur Microscopic Review Urine Culture Comments Urine Eosinophils Ur Random Creatinine Ur Random Sodium Ur Random Uric Acid Vancomycin Trough Rheumatoid Factor Scrn Negative Rheumatoid Factor Titer Not Reportable 12/02/17 12/02/17 12/02/17 05:36 10:00 10:00 WBC RBC Hgb Hct MCV MCH MCHC RDW Plt Count MPV Neut % (Auto) Lymph % (Auto) Alpine % (Auto) Eos % (Auto) Baso % (Auto) Neut # (Auto) Lymph # (Auto) [place] # (Auto) Eos # (Auto) Baso # (Auto) WBC Differential Differential Comment ESR Puncture Site Patient Temperature O2 Saturation ABG pH ABG pCO2 ABG pO2 ABG HCO3 ABG O2 Content ABG Base Excess ABG Methemoglobin Bill Test Hemoglobin Carboxyhemoglobin O2 Delivery Device Inspired O2 Critical Value Sodium Potassium Chloride Carbon Dioxide Anion Gap BUN Creatinine Estimated GFR Random Glucose Lactic Acid Uric Acid Calcium Phosphorus Magnesium Total Bilirubin AST ALT Alkaline Phosphatase Ammonia Total Creatine Kinase 79 C-Reactive Protein Total Protein Albumin TSH Free T4 Urine Color Urine Clarity Urine pH Ur Specific [place] Urine Protein Urine Glucose (UA) Urine Ketones Urine Occult Blood Urine Nitrate Urine Bilirubin Urine Urobilinogen Ur Leukocyte Esterase Urine RBC Urine WBC Ur Squamous Epith Cells Amorphous Sediment Micro UA Comment Ur Microscopic Review Urine Culture Comments Urine Eosinophils Rare H Ur Random Creatinine 71 Ur Random Sodium 23 Ur Random Uric Acid Vancomycin Trough Rheumatoid Factor Scrn Rheumatoid Factor Titer 12/02/17 12/02/17 12/03/17 10:00 10:00 09:27 WBC 10.5 RBC 3.62 L Hgb 10.9 L Hct 32.8 L MCV 90.5 MCH 30.0 MCHC 33.2 RDW 15.9 Plt Count 232 D MPV 9.6 Neut % (Auto) 73.1 H Lymph % (Auto) 10.6 Alpine % (Auto) 13.1 H Eos % (Auto) 1.9 Baso % (Auto) 1.3 Neut # (Auto) 7.6 Lymph # (Auto) 1.1 Alpine # (Auto) 1.4 H Eos # (Auto) 0.2 Baso # (Auto) 0.1 WBC Differential . Differential Comment Auto diff final ESR Puncture Site Patient Temperature O2 Saturation ABG pH ABG pCO2 ABG pO2 ABG HCO3 ABG O2 Content ABG Base Excess ABG Methemoglobin Bill Test Hemoglobin Carboxyhemoglobin O2 Delivery Device Inspired O2 Critical Value Sodium Potassium Chloride Carbon Dioxide Anion Gap BUN Creatinine Estimated GFR Random Glucose Lactic Acid Uric Acid Calcium Phosphorus Magnesium Total Bilirubin AST ALT Alkaline Phosphatase Ammonia Total Creatine Kinase C-Reactive Protein Total Protein Albumin TSH Free T4 Urine Color Yellow Urine Clarity Cloudy H Urine pH 6.0 Ur Specific [place]field 1.008 Urine Protein 100 H Urine Glucose (UA) Negative Urine Ketones Trace Urine Occult Blood Moderate H Urine Nitrate Negative Urine Bilirubin Negative Urine Urobilinogen Less than 2 Ur Leukocyte Esterase Trace H Urine RBC 4 H Urine WBC 1 Ur Squamous Epith Cells <1 Amorphous Sediment Moderate H Micro UA Comment Cath-culture not ind Ur Microscopic Review Not Reportable Urine Culture Comments Cath-cult not ind Urine Eosinophils Ur Random Creatinine Ur Random Sodium Ur Random Uric Acid 8.6 Vancomycin Trough Rheumatoid Factor Scrn Rheumatoid Factor Titer 12/03/17 12/03/17 12/03/17 09:27 10:35 11:46 WBC RBC Hgb Hct MCV MCH MCHC RDW Plt Count MPV Neut % (Auto) Lymph % (Auto) [place] % (Auto) Eos % (Auto) Baso % (Auto) Neut # (Auto) Lymph # (Auto) [place] # (Auto) Eos # (Auto) Baso # (Auto) WBC Differential Differential Comment ESR Puncture Site Left radial Patient Temperature 98.6 O2 Saturation 96 ABG pH 7.45 H ABG pCO2 28 L ABG pO2 92 ABG HCO3 19 L ABG O2 Content 14.3 ABG Base Excess -4.1 L ABG Methemoglobin 1.0 Bill Test Present Hemoglobin 10.6 L Carboxyhemoglobin 1.5 O2 Delivery Device Ra Inspired O2 21 Critical Value No Sodium 149 H Potassium 3.4 L Chloride 116 H Carbon Dioxide 20.9 L Anion Gap 12 BUN 32 H Creatinine 3.25 H Estimated GFR 18 L Random Glucose 91 Lactic Acid Uric Acid Calcium 8.1 L Phosphorus 3.1 Magnesium Total Bilirubin AST ALT Alkaline Phosphatase Ammonia 27 Total Creatine Kinase C-Reactive Protein Total Protein Albumin 2.4 L TSH Free T4 Urine Color Urine Clarity Urine pH Ur Specific Butterfield Urine Protein Urine Glucose (UA) Urine Ketones Urine Occult Blood Urine Nitrate Urine Bilirubin Urine Urobilinogen Ur Leukocyte Esterase Urine RBC Urine WBC Ur Squamous Epith Cells Amorphous Sediment Micro UA Comment Ur Microscopic Review Urine Culture Comments Urine Eosinophils Ur Random Creatinine Ur Random Sodium Ur Random Uric Acid Vancomycin Trough Rheumatoid Factor Scrn Rheumatoid Factor Titer 12/03/17 12/04/17 12/06/17 11:46 06:59 05:32 WBC 10.4 RBC 3.62 L Hgb 11.0 L Hct 33.2 L MCV 91.8 MCH 30.5 MCHC 33.2 RDW 16.5 Plt Count 333 D MPV 9.0 Neut % (Auto) 66.0 Lymph % (Auto) 13.5 Alpine % (Auto) 12.0 H Eos % (Auto) 5.2 H Baso % (Auto) 3.3 H Neut # (Auto) 6.9 Lymph # (Auto) 1.4 Alpine # (Auto) 1.2 H Eos # (Auto) 0.5 H Baso # (Auto) 0.3 H WBC Differential . Differential Comment Auto diff final ESR Puncture Site Patient Temperature O2 Saturation ABG pH ABG pCO2 ABG pO2 ABG HCO3 ABG O2 Content ABG Base Excess ABG Methemoglobin Bill Test Hemoglobin Carboxyhemoglobin O2 Delivery Device Inspired O2 Critical Value Sodium 145 Potassium 3.6 Chloride 113 H Carbon Dioxide 20.8 L Anion Gap 11 BUN 34 H Creatinine 2.98 H Estimated GFR 20 L Random Glucose 127 H Lactic Acid Uric Acid Calcium 8.1 L Phosphorus 3.4 Magnesium 2.0 Total Bilirubin AST ALT Alkaline Phosphatase Ammonia Total Creatine Kinase C-Reactive Protein Total Protein Albumin 2.4 L TSH Free T4 Urine Color Urine Clarity Urine pH Ur Specific [place] Urine Protein Urine Glucose (UA) Urine Ketones Urine Occult Blood Urine Nitrate Urine Bilirubin Urine Urobilinogen Ur Leukocyte Esterase Urine RBC Urine WBC Ur Squamous Epith Cells Amorphous Sediment Micro UA Comment Ur Microscopic Review Urine Culture Comments Urine Eosinophils Ur Random Creatinine Ur Random Sodium Ur Random Uric Acid Vancomycin Trough Rheumatoid Factor Scrn Rheumatoid Factor Titer 12/06/17 12/06/17 12/07/17 05:32 17:50 03:59 WBC RBC Hgb Hct MCV MCH MCHC RDW Plt Count MPV Neut % (Auto) Lymph % (Auto) Alpine % (Auto) Eos % (Auto) Baso % (Auto) Neut # (Auto) Lymph # (Auto) Alpine # (Auto) Eos # (Auto) Baso # (Auto) WBC Differential Differential Comment ESR Puncture Site Patient Temperature O2 Saturation ABG pH ABG pCO2 ABG pO2 ABG HCO3 ABG O2 Content ABG Base Excess ABG Methemoglobin Bill Test Hemoglobin Carboxyhemoglobin O2 Delivery Device Inspired O2 Critical Value Sodium 152 H 151 H 153 H Potassium 3.6 3.6 3.3 L Chloride 117 H 119 H 117 H Carbon Dioxide 20.9 L 21.8 22.9 Anion Gap 14 10 13 BUN 32 H 32 H 28 H Creatinine 2.79 H 2.67 H 2.62 H Estimated GFR 22 L 23 L 23 L Random Glucose 89 111 H 85 Lactic Acid Uric Acid Calcium 8.3 L 8.2 L 8.3 L Phosphorus 3.1 Magnesium 2.4 Total Bilirubin 0.2 AST 25 ALT 22 Alkaline Phosphatase 59 Ammonia Total Creatine Kinase C-Reactive Protein Total Protein 6.1 L D Albumin 2.6 L TSH Free T4 Urine Color Urine Clarity Urine pH Ur Specific [place] Urine Protein Urine Glucose (UA) Urine Ketones Urine Occult Blood Urine Nitrate Urine Bilirubin Urine Urobilinogen Ur Leukocyte Esterase Urine RBC Urine WBC Ur Squamous Epith Cells Amorphous Sediment Micro UA Comment Ur Microscopic Review Urine Culture Comments Urine Eosinophils Ur Random Creatinine Ur Random Sodium Ur Random Uric Acid Vancomycin Trough Rheumatoid Factor Scrn Rheumatoid Factor Titer Patient/Family Conference Present at Family Conference: pt's , and health care surrogate. Family Conference Location: Bedside, Hallway Issues Discussed: * Palliative care role, purpose, approach * Additional medical, psychosocial, and spiritual history * Patients general health, functional status, and cognitive changes in the months leading up to the current hospitalization * Patient/family understanding of the current medical problems * Patient/family understanding of prognosis * Patients goals of care as best understood from advance directives and/or conversations and/or values * Current medical treatment options and benefits/burdens of those options * Likely scenarios comparing ongoing aggressive care with a transition to comfort measures only * Questions answered to the best of my ability * Palliative care contact information provided Assessment and Plan - Disease Oriented Problem List (1) Dysphagia (2) Dementia (3) Arrhythmia (4) Atrial fibrillation/flutter (5) Alzheimer disease (6) ETOH abuse (7) Osteomyelitis (8) NANCY (acute kidney injury) (9) Hypernatremia - Symptom Scale (1) Anxiety 0-10 Scale: Unable to quantify (2) Pain 0-10 Scale: Unable to quantify (confused/ dementia.) Pertinent Non-Medical Issues: Psychosocial: , to Lizbeth Garner. hx of etoh abuse. Is 2nd marriage. 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 Has 2 sons. Spiritual:Raised Sikhism Legal: Lizbeth Garner: Healthcare surrogate [phone] or [phone]. Living will was also completed. There is a community DNR Ethical issues impacting care:none Prognosis: 87 year old with dementia, osteomyelitis, renal failure, dysphagia (hx of aspiration). Overal prognosis is poor, appropriate for hospice. Code Status: No Code DNR Plan: == code: DNR == capacity- has no capcity to make medical decision and will not have capacity given his dementia. == Health care surrogate, : Patsy Vizcarra == goals of care: I spoke with patient's /health care surrogate. He endorse pt had been declining, worsening memory, and had intances of dyspnea/ pneumonia type of symptom, frail, and general poor quality of life. She endorse that patient has a living will and which made it clear he does not want artifical nurtrition or life support. We reviewed pt's labs, current likely condition, his renal failure, risk for aspiration, agitation. She is amenable to hospice consultation, and goal of care is for him to go back to his nursing facility. She is amenable to honor pt's signed DNR. Assessment/Plan ==symptom: pain- osteomyelitis- consider dilaudid for when pt goes to hospice. anxiety- dementia- Haldol, Ativan. == palliative care will follow to provide recommendation on symptom management and follow as clinical condition evolves. Appreciation Thank you for the opportunity to participate in the care of Zackery Garner. Attestation Attestation: To help prompt me to consider important information that might be impacting today's encounter and assessment, information from prior notes written by myself or my colleagues may have been "brought forward" into today's note. My signature on this note, however, is an attestation that I personally performed the exam, history, and/or decision-making noted today, and, unless otherwise indicated, the interactions with patient, family, and staff as well as the review of records all occurred today. I also attest that the listed assessment and stated plan reflect my best clinical judgment today based on the combination of historical information, prior notes, and today's exam/ interactions. When time spent is documented, it refers only to time spent today by the signer, or if indicated, combined time spent today by collaborating physician/nurse practitioner.
--- NOTE | 2017-12-07 14:21 | P.DS ---
Date of admission: 11/25/17 21:44 Primary care physician: UNKNOWN Attending physician on discharge: Evangelina King Anticipated date of discharge: 12/07/17 Brief History from admission: 87-year-old male with a history of dementia and A. fib a local halfway for evaluation of a swollen left index finger. According to the halfway report patient has had a swollen left index finger for the last 12 days. Patient was treated outpatient with Augmentin and acyclovir for 10 days with only some improvement, but the area continued to be red and swollen. He did have an outpatient x-ray that showed possible osteomyelitis therefore they sent in for further evaluation. Due to patient's dementia he is unable to state what exactly is wrong. He does state that he has some tenderness in the left finger but that is all. Denies any fever, chills, shortness of breath, chest pain or dizziness. DS: Diagnosis - Discharge Diagnosis (1) Osteomyelitis Status: Acute Diagnosis: Principal (2) NANCY (acute kidney injury) Status: Acute Diagnosis: Principal (3) Hypokalemia Status: Acute Diagnosis: Principal (4) Hypernatremia Status: Acute Diagnosis: Principal (5) Dementia Status: Acute Diagnosis: Secondary (6) Dysphagia Status: Acute DS: Summary Hospital Course: 87-year-old male with a history of dementia and A. fib admitted on 11/25 for left index finger infection despite outpatient antibiotic treatment with Augmentin and Acyclovir. He had an outpatient x-ray that showed possible osteomyelitis therefore was sent in for further evaluation. Hand surgery was consulted and patient underwent operative debridement on 11/27 and 12/04. ID was also consulted to manage antibiotics. During admission, the patient went into acute renal failure. Her creatinine jumped from 0.86 to 2.25 within two days and went as high as 3.32. Nephrology was consulted, offending agents were stopped cinluding vanco and Zosyn and the patient was changed to Rocephin. The patient was also managed for hypernatremia and hypokalemia, and given his advanced demential speech therapy was following. He failed his swallow test multiple times and was made NPO. Palliative care was consulted to address end-of -life goals vs. PEG tube placement, etc. It was decided with the family to [facility] the [facility]. - Time Spent with Patient Total time spent providing and/or coordinating discharge services: Greater than 30 minutes - Quality: VTE Deep Vein Thrombosis/Pulmonary Embolism Present on Admission: No Exam Vital signs: Vital Signs 12/06/17 16:00 12/06/17 20:00 12/06/17 21:40 Temperature 97.5 F L 98 F Pulse Rate 70 69 64 Respiratory Rate 18 17 Blood Pressure 170/70 H 119/67 Pulse Oximetry 98 98 12/07/17 00:00 12/07/17 00:45 12/07/17 05:45 Temperature 97.5 F L 98 F Pulse Rate 74 60 64 Respiratory Rate 20 19 Blood Pressure 129/69 115/63 Pulse Oximetry 96 96 12/07/17 08:00 12/07/17 12:00 Temperature 97.7 F 97.2 F L Pulse Rate 69 69 Respiratory Rate 18 18 Blood Pressure 186/75 H 170/72 H Pulse Oximetry 95 96 Intake & Output 12/06/17 12/07/17 12/07/17 18:59 06:59 18:59 Intake Total 100 / 100 1000 / 1000 100 / 100 Output Total 300 / 300 200 / 200 Balance 100 / 100 700 / 700 -100 / -100 Weight 91 kg Intake: IV 100 / 100 1000 / 1000 100 / 100 D5W Inj 1,000 ML @ 84 mls/hr IV 1000 / 1000 .CONT .[id number] [facility] Rx#:[id number] Rocephin Inj 2,000 MG In NS Inj 100 / 100 100 / 100 100 ML @ 200 mls/hr IV.SIG Q24H [facility] Rx#:[id number] Oral 0 / 0 Output: Urine 300 / 300 200 / 200 Other: # Voids 3 # Incontinent Voids 4 Date of Last Bowel Movement 12/04/17 12/05/17 12/06/17 # Bowel Movements 1 0 0 # Incontinent Bowel Movements 0 Narrative: GENERAL: Elderly male resting in bed in NAD. SKIN: Warm and dry. Pacemaker left upper chest, no overlying erythema. HEART: RRR no m/r/g. LUNGS: CTAB without wheezes or crackles. ABDOMEN: +BS, soft, NT, ND. EXTREMITIES: No LE edema. L index finger with sutures in place and some surrounding swelling. No significant erythema. No drainage. NEURO: Awake but confused. Results Procedures completed during hospitalization: 11/27: I&D of abscess L index finger DIP joint, debridement of L index finger DIP joint 12/04: irrigation and debridement left index finger with secondary closure Completed studies during hospitalization: Pending at discharge 11/27/17 07:41 Surgical [PTH] Routine Labs on day of discharge: Labs from last 24 hours 12/07/17 12/06/17 03:59 17:50 Sodium 153 H 151 H Potassium 3.3 L 3.6 Chloride 117 H 119 H Carbon Dioxide 22.9 21.8 Anion Gap 13 10 BUN 28 H 32 H Creatinine 2.62 H 2.67 H Estimated GFR 23 L 23 L Random Glucose 85 111 H Calcium 8.3 L 8.2 L Preliminary micro results at discharge 11/27/17 20:59 Fungal Culture - Preliminary Wound - Finger No growth in 1 week 11/27/17 20:59 Mycobacterial Culture - Preliminary Wound - Finger No growth in 1 week - Impressions ITS Impressions Finger X-Ray 11/25/17 20:06 CONCLUSION: Findings consistent with osteomyelitis with bony destruction DIP joint second digit Abdomen/Bladder Ultrasound 11/30/17 00:00 CONCLUSION: 1. Abnormal bladder appearance. 2. Small pleural effusions Chest X-Ray 12/03/17 00:00 CONCLUSION: Slight interval improvement in aeration. Discharge Plan - Discharge Disposition Patient Disposition: [facility] - Discharge Condition Condition: Stable - Discharge Order Discharge Orders: Discharge Order (Routine); Ordered 12/07/17 Ordered By: Evangelina King - Discharge Details Anticipated Discharge Date: 12/07/17 Discharge Comment: d/c back to [facility] where hospice will follow - Physicians Team Primary Care Provider: UNKNOWN, Attending Provider: Evangelina King Other Providers: Heather Tilley MD ; Natalie Thomas MD ; Donovan Barahona MD ; Bella Zelaya MD
[2017-12-07 17:09] LABS: Calcium 8.3 mg/dL (8.5-10.1); Carbon Dioxide 23.3 meq/L (21.0-32.0); Potassium 3.1 meq/L (3.5-5.1)
--- NOTE | 2017-12-07 20:57 | P.PNOP ---
Subjective Interval history: Patient remains confused. Reports pain over left index finger. Physical Exam Vital signs: Vital Signs 12/06/17 21:40 12/07/17 00:00 12/07/17 00:45 Temperature 98 F 97.5 F L Pulse Rate 64 74 60 Respiratory Rate 17 20 Blood Pressure 119/67 129/69 Pulse Oximetry 98 96 12/07/17 05:45 12/07/17 08:00 12/07/17 12:00 Temperature 98 F 97.7 F 97.2 F L Pulse Rate 64 69 69 Respiratory Rate 19 18 18 Blood Pressure 115/63 186/75 H 170/72 H Pulse Oximetry 96 95 96 12/07/17 16:00 Temperature 97.4 F L Pulse Rate 68 Respiratory Rate 18 Blood Pressure 152/69 H Pulse Oximetry 96 Intake & Output 12/07/17 12/07/17 12/08/17 06:59 18:59 06:59 Intake Total 1000 / 1000 100 / 100 1999 / 1999 Output Total 300 / 300 600 / 600 Balance 700 / 700 -500 / -500 1999 Weight 91 kg Intake: IV 1000 / 1000 100 / 100 1999 / 1999 D5W Inj 1,000 ML @ 84 mls/hr IV 1000 / 1000 .CONT .[id number] [facility] Rx#:[id number] D5W + KCL 20 mEq Inj 1,000 ML @ 1000 / 1000 100 mls/hr IV.CONT .Q10H [facility] Rx#:[id number] Rocephin Inj 2,000 MG In NS Inj 100 / 100 100 ML @ 200 mls/hr IV.SIG Q24H [facility] Rx#:[id number] Oral 0 / 0 Output: Urine 300 / 300 600 / 600 Other: # Incontinent Voids 4 Date of Last Bowel Movement 12/05/17 12/06/17 # Bowel Movements 0 0 # Incontinent Bowel Movements 0 Narrative: Resolving erythema, minimal drainage, sutures in place, <2 sec capillary refill - Urinary Catheter Management Indwelling Urethral Catheter Cath placed during this visit: yes Reason for continuing: Hourly intake/output Insertion date: 11/29/17 Results - Labs CBC & Chem 7: 12/06/17 05:32 12/07/17 15:59 Laboratory Results - last 24 hr 12/07/17 12/07/17 03:59 15:59 Sodium 153 H 151 H Potassium 3.3 L 3.1 L Chloride 117 H 116 H Carbon Dioxide 22.9 23.3 Anion Gap 13 12 BUN 28 H 25 H Creatinine 2.62 H 2.62 H Estimated GFR 23 L 23 L Random Glucose 85 111 H Calcium 8.3 L 8.3 L - Procedures 11/27: I&D of abscess L index finger DIP joint, debridement of L index finger DIP joint 12/04: irrigation and debridement left index finger with secondary closure Assessment and Plan - Assessment and Plan 87yM s/p I&D left index finger for likely infected gout although Uric Acid wnl. complete destruction of DIP joint on xray and intraoperative. Now s/p repeat I&D and closure. Unable to get MRI due to pacemaker. Cultures negative. Appreciate ID recs. Recommend continued antibiotics. 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 Intraop path consistent with gout. Daily dressing changes including xeroform, 4x4s, cling Will continue to follow. NOT cleared for discharge at this time. Possible 2 week followup once cleared for discharge
--- NOTE | 2017-12-07 20:59 | XR ---
EXAM DATE: 12/07/2017 8:38 PM EDT AGE/SEX: 87 years / Male INDICATIONS: Right joint pain. CLINICAL DATA: This is the patient's initial encounter. Patient reports that signs and symptoms have been present for 1 day and indicates a pain score of Nonresponsive. MEDICAL/SURGICAL HISTORY: . A-fib, dementia. . Pacemaker. COMPARISON: No prior exams available for comparison. FINDINGS: The elbow joint is normally aligned. No fracture is seen. There is hypertrophic change at the posteri or olecranon. There is increased soft tissue density in the olecranon region. There is some edema see n within the medial soft tissues on the AP view. CONCLUSION: No acute bony injury is seen. Hypertrophic spurring at the posterior olecranon. Soft tissue swelling at the posterior superficial elbow. This could represent olecranon bursitis. Electronically signed by: Wali Peters MD 12/07/2017 8:58 PM EDT
[2017-12-08] MEDS: KCL 20 mEq/Dextrose 5% Inj 1,000 ML IV.CONT SCH (04:28)
[2017-12-08] MEDS ORDERED: Sodium Chloride 23.4% Inj 38.5 MEQ in Water for Inj, Sterile 1,000 ML IV.CONT SCH (09:00)
--- NOTE | 2017-12-08 10:17 | P.PNNP ---
Subjective Interval history: He failed swallow yesterday. The family had decided to transition to comfort measures. Labs were not drawn today. He later passed a swallow for puree and nectar thick liquids. Due to this, his family has decided not to go with hospice. I have asked the RN to obtain labs this morning. The patient is sleepy, confused. <Arlene Harding - Last Filed: 12/08/17 10:13> Physical Exam Vital signs: Vital Signs 12/07/17 12:00 12/07/17 16:00 12/07/17 20:00 Temperature 97.2 F L 97.4 F L 98 F Pulse Rate 69 68 69 Respiratory Rate 18 18 18 Blood Pressure 170/72 H 152/69 H 159/71 H Pulse Oximetry 96 96 95 12/08/17 00:00 12/08/17 01:38 12/08/17 04:00 Temperature 97.8 F 97.2 F L Pulse Rate 70 70 70 Respiratory Rate 18 19 18 Blood Pressure 170/73 H 158/70 H 169/72 H Pulse Oximetry 95 96 96 12/08/17 08:00 Temperature 98.5 F Pulse Rate 69 Respiratory Rate 20 Blood Pressure 156/69 H Pulse Oximetry 97 Intake & Output 12/07/17 12/08/17 12/08/17 18:59 06:59 18:59 Intake Total 100 / 100 4200 / 4200 Output Total 600 / 600 Balance -500 / -500 4200 / 4200 Intake: IV 100 / 100 3000 / 3000 D5W + KCL 20 mEq Inj 1,000 ML @ 2000 / 2000 100 mls/hr IV.CONT .Q10H [facility] Rx#:[id number] Rocephin Inj 2,000 MG In NS Inj 100 / 100 100 ML @ 200 mls/hr IV.SIG Q24H [facility] Rx#:[id number] Other 1200 / 1200 Output: Urine 600 / 600 Other: Other Intake Source Saline Solution # Incontinent Voids 3 Date of Last Bowel Movement 12/06/17 12/07/17 # Bowel Movements 0 - Constitutional no acute distress, thin, cachectic, disheveled, cooperative - Routine Neck Exam Present: supple, full ROM - Routine Respiratory Exam Present: CTA bilaterally, diminished air movement - Routine Cardiovascular Exam Present: RRR, S1, S2 - Routine Abdominal Exam Present: soft, normoactive bowel sounds - Routine Extremities Exam Present: pulses intact. Absent: edema - Routine Skin Exam Present: dry, warm Comments: left index finger with wound, sutures, edema, erythema - Routine Neurological Exam Present: altered mental status, moving all extremities - Detailed Neurological Exam: Coma Scale Eye Opening: To sound Verbal Response: Confused Motor Response: Localizing [place] Coma Scale Total: 12 - Urinary Catheter Management Indwelling Urethral Catheter Cath placed during this visit: yes Reason for continuing: Hourly intake/output Insertion date: 11/29/17 <Arlene Harding - Last Filed: 12/08/17 10:13> Vital signs: Vital Signs 12/07/17 12:00 12/07/17 16:00 12/07/17 20:00 Temperature 97.2 F L 97.4 F L 98 F Pulse Rate 69 68 69 Respiratory Rate 18 18 18 Blood Pressure 170/72 H 152/69 H 159/71 H Pulse Oximetry 96 96 95 12/08/17 00:00 12/08/17 01:38 12/08/17 04:00 Temperature 97.8 F 97.2 F L Pulse Rate 70 70 70 Respiratory Rate 18 18 Blood Pressure 170/73 H 158/70 H 169/72 H Pulse Oximetry 95 96 96 12/08/17 08:00 Temperature 98.5 F Pulse Rate 69 Respiratory Rate 20 Blood Pressure 156/69 H Pulse Oximetry 97 Intake & Output 12/07/17 12/08/17 12/08/17 18:59 06:59 18:59 Intake Total 100 / 100 4200 / 4200 100 / 100 Output Total 600 / 600 Balance -500 / -500 4200 / 4200 100 / 100 Intake: IV 100 / 100 3000 / 3000 100 / 100 D5W + KCL 20 mEq Inj 1,000 ML @ 2000 / 2000 100 mls/hr IV.CONT .Q10H [facility] Rx#:[id number] Rocephin Inj 2,000 MG In NS Inj 100 / 100 100 / 100 100 ML @ 200 mls/hr IV.SIG Q24H [facility] Rx#:[id number] Other 1200 / 1200 Output: Urine 600 / 600 Other: Other Intake Source Saline Solution # Incontinent Voids 3 Date of Last Bowel Movement 12/06/17 12/07/17 12/07/17 # Bowel Movements 0 - Urinary Catheter Management Indwelling Urethral Catheter Cath placed during this visit: no <Isaias Cruz - Last Filed: 12/08/17 11:47> Assessment and Plan - Assessment (1) NANCY (acute kidney injury) Code(s): N17.9 - Acute kidney failure, unspecified Status: Acute Plan: Baseline creatinine 0.8. NANCY due to vancomycin induced renal injury, prerenal azotemia, or AIN. Possible ATN. Renal function has remained unchanged. Repeat ordered. . Change IVF: to 1/4 NS @ 50 cc/hr. Replace KCL IV, 20 mEq x 2 bags. He is non oliguric, incontinent most of the time. Repeatedly pulling off condom catheter. Avoid nephrotoxic agents Obtain daily labs. (2) Hypokalemia Code(s): E87.6 - Hypokalemia Status: Acute Plan: Replacement ordered. (3) Osteomyelitis Code(s): M86.9 - Osteomyelitis, unspecified Status: Acute Qualifiers: Osteomyelitis type: unspecified type Osteomyelitis location: other site Qualified Code(s): M86.9 - Osteomyelitis, unspecified Plan: ID and ortho following s/P I&D, surgery on 12/04. On Rocephin and steroids, off Flagyl,. <Arlene Harding - Last Filed: 12/08/17 10:13> - Assessment (1) NANCY (acute kidney injury) Code(s): N17.9 - Acute kidney failure, unspecified Status: Acute (2) Hypokalemia Code(s): E87.6 - Hypokalemia Status: Acute (3) Osteomyelitis Code(s): M86.9 - Osteomyelitis, unspecified Status: Acute Qualifiers: Osteomyelitis type: unspecified type Osteomyelitis location: other site Qualified Code(s): M86.9 - Osteomyelitis, unspecified - Attending Attestation patient was seen and examined. Agree with above assessment and plan. <Isaias Cruz - Last Filed: 12/08/17 11:47>
[2017-12-08 10:32] LABS: Albumin 2.7 g/dL (3.4-5.0); Calcium 8.1 mg/dL (8.5-10.1); Carbon Dioxide 22.9 meq/L (21.0-32.0); Phosphorus 2.3 mg/dL (2.5-4.9); Potassium 3.5 meq/L (3.5-5.1)
[2017-12-08 10:56] LABS: Albumin 2.5 g/dL (3.4-5.0); Calcium 8.1 mg/dL (8.5-10.1); Carbon Dioxide 22.7 meq/L (21.0-32.0); Phosphorus 2.2 mg/dL (2.5-4.9); Potassium 3.6 meq/L (3.5-5.1)
[2017-12-08] MEDS ORDERED: Potassium Chlor 10 mEq Premix 10 MEQ/100 ML PIGGYBACK IV.SIG SCH (11:00)
--- NOTE | 2017-12-08 11:15 | P.PNIM ---
Subjective Interval history: Pt seen and examined. Remains confused. Cannot tell me his 's name. Had another speech eval today which showed continued dysphagia but "appropriate to initiate comfort feeding of pureed solids, honey thick liquids." Patient's met with hospice nurse this afternoon and patient to be discharged today. Physical Exam Vital signs: Vital Signs 12/07/17 12:00 12/07/17 16:00 12/07/17 20:00 Temperature 97.2 F L 97.4 F L 98 F Pulse Rate 69 68 69 Respiratory Rate 18 18 18 Blood Pressure 170/72 H 152/69 H 159/71 H Pulse Oximetry 96 96 95 12/08/17 00:00 12/08/17 01:38 12/08/17 04:00 Temperature 97.8 F 97.2 F L Pulse Rate 70 70 70 Respiratory Rate 18 19 18 Blood Pressure 170/73 H 158/70 H 169/72 H Pulse Oximetry 95 96 96 12/08/17 08:00 Temperature 98.5 F Pulse Rate 69 Respiratory Rate 20 Blood Pressure 156/69 H Pulse Oximetry 97 Intake & Output 12/07/17 12/08/17 12/08/17 18:59 06:59 18:59 Intake Total 100 / 100 4200 / 4200 100 / 100 Output Total 600 / 600 Balance -500 / -500 4200 / 4200 100 / 100 Intake: IV 100 / 100 3000 / 3000 100 / 100 D5W + KCL 20 mEq Inj 1,000 ML @ 2000 / 2000 100 mls/hr IV.CONT .Q10H [facility] Rx#:[id number] Rocephin Inj 2,000 MG In NS Inj 100 / 100 100 / 100 100 ML @ 200 mls/hr IV.SIG Q24H [facility] Rx#:[id number] Other 1200 / 1200 Output: Urine 600 / 600 Other: Other Intake Source Saline Solution # Incontinent Voids 3 Date of Last Bowel Movement 12/06/17 12/07/17 12/07/17 # Bowel Movements 0 Narrative: GENERAL: Elderly male resting in bed in NAD. SKIN: Warm and dry. Pacemaker left upper chest, no overlying erythema. HEART: RRR no m/r/g. LUNGS: CTAB without wheezes or crackles. ABDOMEN: +BS, soft, NT, ND. EXTREMITIES: No LE edema. L index finger with sutures in place and some surrounding swelling. No significant erythema. No drainage. R elbow with firm, erythematous swelling. Able to flex and extend at the elbow. NEURO: Awake but confused. - Urinary Catheter Management Indwelling Urethral Catheter Cath placed during this visit: yes Reason for continuing: Not indwelling catheter Insertion date: 11/29/17 Results - Labs CBC & Chem 7: 12/06/17 05:32 12/08/17 10:24 Laboratory Results - last 24 hr 12/07/17 12/07/17 12/08/17 15:59 20:52 09:30 Sodium 151 H 150 H Potassium 3.1 L 3.5 Chloride 116 H 116 H Carbon Dioxide 23.3 22.9 Anion Gap 12 11 BUN 25 H 22 H Creatinine 2.62 H 2.40 H Estimated GFR 23 L 26 L POC Glucose 115 H Random Glucose 111 H 136 H Calcium 8.3 L 8.1 L Phosphorus 2.3 L Albumin 2.7 L 12/08/17 10:24 Sodium 149 H Potassium 3.6 Chloride 116 H Carbon Dioxide 22.7 Anion Gap 10 BUN 21 H Creatinine 2.37 H Estimated GFR 26 L POC Glucose Random Glucose 122 H Calcium 8.1 L Phosphorus 2.2 L Albumin 2.5 L - Imaging Impressions Elbow X-Ray 12/07/17 00:00 CONCLUSION: No acute bony injury is seen. Hypertrophic spurring at the posterior olecranon. Soft tissue swelling at the posterior superficial elbow. This could represent olecranon bursitis. - Procedures 11/27: I&D of abscess L index finger DIP joint, debridement of L index finger DIP joint 12/04: irrigation and debridement left index finger with secondary closure Assessment and Plan - Assessment (1) Osteomyelitis Code(s): M86.9 - Osteomyelitis, unspecified Status: Acute (2) NANCY (acute kidney injury) Code(s): N17.9 - Acute kidney failure, unspecified Status: Acute (3) Hypokalemia Code(s): E87.6 - Hypokalemia Status: Acute (4) Hypernatremia Code(s): E87.0 - Hyperosmolality and hypernatremia Status: Acute (5) Dementia Code(s): F03.90 - Unspecified dementia without behavioral disturbance Status: Acute (6) Dysphagia Code(s): R13.10 - Dysphagia, unspecified Status: Acute - Plan 87-year-old male with a history of dementia and A. fib admitted on 11/25 for left index finger infection despite outpatient antibiotic treatment with Augmentin and Acyclovir. He had an outpatient x-ray that showed possible osteomyelitis therefore was sent in for further evaluation. 12/08: Hospice nurse met with today who signed consents for hospice. Will discharge back to [facility] with hospice today. 1. L index finger osteomyelitis - XR with findings c/w osteomyelitis with bony destruction DIP joint second digit - S/P operative debridement on 11/27 and 12/04 with hand surgery - ID following, on Rocephin - Cultures negative - Evidence of gout on path, uric acid WNL 2. Acute renal failure - Creatinine jumped from 0.86 to 2.25 within two days - Up to 3.32 at the peak - Improving with IV fluids and discontinuation of offending agents - Nephrology consulted, appreciate assistance - Renal U/S showed abnormal bladder appearance but no obstruction - Likely multifactorial given offending agents such as vanco, possible pre- renal azotemia/possible ATN, as well as interstitial nephritis since urine with + eosinophils - Avoid nephrotoxic agents - Monitor renal function 3. Hypernatremia - Sodium continues to be elevated, 153 this AM despite changing to D5W yesterday - Will increase rate of fluids to 100 ml/hr - Recheck BMP this afternoon at 1300 and adjust fluids as needed 4. Hypokalemia - D5W KCl 5. Atrial fibrillation - Rate-controlled - Pacemaker in place - Metoprolol held as patient failed swallow eval 6. Advanced dementia - Chronic and in a long-term care facility - Failed swallow test x 3 and continues to have severe oropharyngeal dysphagia but can do purees for comfort feeding - Consulted palliative care 7. HTN - Overall BPs controlled despite PO meds being held since patient NPO - Continue to monitor Discussed Condition With: Hospice nurse Discharge Planning: D/C back to [facility] today with hospice (1) Osteomyelitis Qualifiers: Osteomyelitis type: unspecified type Osteomyelitis location: other site Qualified Code(s): M86.9 - Osteomyelitis, unspecified
[2017-12-08] MEDS ORDERED: Potassium Phosphate 500 MG Soluble Tablet PO ONE (12:30)
--- NOTE | 2017-12-08 13:04 | P.DS ---
Date of admission: 11/25/17 21:44 Primary care physician: UNKNOWN Attending physician on discharge: Evangelina King Anticipated date of discharge: 12/08/17 Brief History from admission: 87-year-old male with a history of dementia and A. fib a local half-way for evaluation of a swollen left index finger. According to the half-way report patient has had a swollen left index finger for the last 12 days. Patient was treated outpatient with Augmentin and acyclovir for 10 days with only some improvement, but the area continued to be red and swollen. He did have an outpatient x-ray that showed possible osteomyelitis therefore they sent in for further evaluation. Due to patient's dementia he is unable to state what exactly is wrong. He does state that he has some tenderness in the left finger but that is all. Denies any fever, chills, shortness of breath, chest pain or dizziness. DS: Diagnosis - Discharge Diagnosis (1) Osteomyelitis Status: Acute (2) NANCY (acute kidney injury) Status: Acute (3) Hypokalemia Status: Acute (4) Hypernatremia Status: Acute (5) Dementia Status: Acute (6) Dysphagia Status: Acute DS: Summary Hospital Course: 87-year-old male with a history of dementia and A. fib admitted on 11/25 for left index finger infection despite outpatient antibiotic treatment with Augmentin and Acyclovir. He had an outpatient x-ray that showed possible osteomyelitis therefore was sent in for further evaluation. Hand surgery was consulted and patient underwent operative debridement on 11/27 and 12/04. ID was also consulted to manage antibiotics. During admission, the patient went into acute renal failure. Her creatinine jumped from 0.86 to 2.25 within two days and went as high as 3.32. Nephrology was consulted, offending agents were stopped cinluding vanco and Zosyn and the patient was changed to Rocephin. The patient was also managed for hypernatremia and hypokalemia, and given his advanced dementia, speech therapy was consulted. He failed his swallow test multiple times and was made NPO. Palliative care was consulted to address end-of -life goals vs. PEG tube placement, etc. It was decided with the family to discharge the patient back [facility] with [facility]. - Time Spent with Patient Total time spent providing and/or coordinating discharge services: Less than 30 minutes - Quality: VTE Deep Vein Thrombosis/Pulmonary Embolism Present on Admission: No Exam Vital signs: Vital Signs 12/07/17 16:00 12/07/17 20:00 12/08/17 00:00 Temperature 97.4 F L 98 F 97.8 F Pulse Rate 68 69 70 Respiratory Rate 18 18 18 Blood Pressure 152/69 H 159/71 H 170/73 H Pulse Oximetry 96 95 95 12/08/17 01:38 12/08/17 04:00 12/08/17 08:00 Temperature 97.2 F L 98.5 F Pulse Rate 70 70 69 Respiratory Rate 19 18 20 Blood Pressure 158/70 H 169/72 H 156/69 H Pulse Oximetry 96 96 97 12/08/17 12:00 Temperature 98.2 F Pulse Rate 69 Respiratory Rate 20 Blood Pressure 162/70 H Pulse Oximetry 96 Intake & Output 12/07/17 12/08/17 12/08/17 18:59 06:59 18:59 Intake Total 100 / 100 4200 / 4200 100 / 100 Output Total 600 / 600 Balance -500 / -500 4200 / 4200 100 / 100 Intake: IV 100 / 100 3000 / 3000 100 / 100 D5W + KCL 20 mEq Inj 1,000 ML @ 2000 / 2000 100 mls/hr IV.CONT .Q10H [facility] Rx#:[id number] Rocephin Inj 2,000 MG In NS Inj 100 / 100 100 / 100 100 ML @ 200 mls/hr IV.SIG Q24H [facility] Rx#:[id number] Other 1200 / 1200 Output: Urine 600 / 600 Other: Other Intake Source Saline Solution # Incontinent Voids 3 Date of Last Bowel Movement 12/06/17 12/07/17 12/07/17 # Bowel Movements 0 Results Procedures completed during hospitalization: 11/27: I&D of abscess L index finger DIP joint, debridement of L index finger DIP joint 12/04: irrigation and debridement left index finger with secondary closure Completed studies during hospitalization: Pending at discharge 11/27/17 07:41 Surgical [PTH] Routine Labs on day of discharge: Labs from last 24 hours 12/08/17 12/08/17 12/07/17 10:24 09:30 20:52 Sodium 149 H 150 H Potassium 3.6 3.5 Chloride 116 H 116 H Carbon Dioxide 22.7 22.9 Anion Gap 10 11 BUN 21 H 22 H Creatinine 2.37 H 2.40 H Estimated GFR 26 L 26 L POC Glucose 115 H Random Glucose 122 H 136 H Calcium 8.1 L 8.1 L Phosphorus 2.2 L 2.3 L Albumin 2.5 L 2.7 L 12/07/17 15:59 Sodium 151 H Potassium 3.1 L Chloride 116 H Carbon Dioxide 23.3 Anion Gap 12 BUN 25 H Creatinine 2.62 H Estimated GFR 23 L POC Glucose Random Glucose 111 H Calcium 8.3 L Phosphorus Albumin Preliminary micro results at discharge 11/27/17 20:59 Fungal Culture - Preliminary Wound - Finger No growth in 1 week 11/27/17 20:59 Mycobacterial Culture - Preliminary Wound - Finger No growth in 1 week - Impressions ITS Impressions Finger X-Ray 11/25/17 20:06 CONCLUSION: Findings consistent with osteomyelitis with bony destruction DIP joint second digit Abdomen/Bladder Ultrasound 11/30/17 00:00 CONCLUSION: 1. Abnormal bladder appearance. 2. Small pleural effusions Chest X-Ray 12/03/17 00:00 CONCLUSION: Slight interval improvement in aeration. Elbow X-Ray 12/07/17 00:00 CONCLUSION: No acute bony injury is seen. Hypertrophic spurring at the posterior olecranon. Soft tissue swelling at the posterior superficial elbow. This could represent olecranon bursitis. Discharge Plan - Discharge Disposition Patient Disposition: [facility] - Discharge Condition Condition: Stable - Discharge Order Discharge Orders: Discharge Order (Routine); Ordered 12/08/17 Ordered By: Evangelina King - Discharge Details Anticipated Discharge Date: 12/08/17 - Physicians Team Primary Care Provider: UNKNOWN, Attending Provider: Evangelina King Other Providers: Heather Tilley MD ; Natalie Thomas MD ; Donovan Barahona MD ; Bella Zelaya MD
== END 2017-12-08 19:34 ==
LOC: NEPE 18:55 → NEDA 21:44 → UNDODISIN 22:43 → NEDA 23:37 → NEPHCDU 23:38 → N05 11-28 18:46
PROVIDERS: ADMIT Family Medicine; ATTEND Family Medicine